=== PATIENT | female | born 1930 | race Caucasian/White ===

== ENCOUNTER 2016-08-08 12:20 | Outpatient (CLI) | payer MEDICARE, OTHER | END 2016-08-08 12:21 | disposition home or self-care (01) | DX: Z12.31 Encounter for screening mammogram for malignant neoplasm of breast (principal) ==

== ENCOUNTER 2016-10-31 11:12 | Outpatient (CLI) | payer MEDICARE, OTHER | END 2016-10-31 11:13 | disposition critical access hospital (66) | DX: M79.604 Pain in right leg (principal); T84.020A Dislocation of internal right hip prosthesis, initial encounter | CPT/HCPCS: A0425; A0427 ==

== ENCOUNTER 2016-10-31 11:31 | Day surgery (SDC) | payer MEDICARE, OTHER ==
[2016-10-31] MEDS ORDERED: PROPOFOL 200 MG/20 ML VIAL IVP STA (13:11)
[2016-10-31] MEDS ORDERED: HYDROmorphone 1 MG/ML SYRINGE IVP STA (13:11)
[2016-10-31] MEDS ORDERED: SODIUM CHLORIDE 0.9% 1,000 ML IV ONE (13:15)
[2016-10-31] MEDS ORDERED: HYDROmorphone 1 MG/ML SYRINGE ONE (13:17)
[2016-10-31] MEDS ORDERED: PROPOFOL 200 MG/20 ML VIAL IVP ONE ×2 (13:17→14:00)
[2016-10-31] MEDS ORDERED: LIDOCAINE-MPF 2% 5 ML VIAL IM ONE (14:00)
[2016-10-31] MEDS ORDERED: fentaNYL 100 MCG/2 ML VIAL IVP ONE (14:00)
[2016-10-31] MEDS ORDERED: SODIUM CHLORIDE 0.9% 700 ML IV ONE (14:21)
[2016-10-31] MEDS ORDERED: ACETAMINOPHEN 1,000 MG/100 ML 100 ML IV ONE (14:51)
[2016-10-31] MEDS ORDERED: KETOROLAC 15 MG/ML VIAL ONE (14:51)
== END 2016-10-31 13:01 | disposition home or self-care (01) ==
PROC: 0SWRXJZ Revision of Synthetic Substitute in Right Hip Joint, Femoral Surface, External Approach (ICD-10-PCS; principal; 2016-10-31 14:00)
DX: T84.020A Dislocation of internal right hip prosthesis, initial encounter (principal); Y83.1 Surgical operation with implant of artificial internal device as the cause of abnormal reaction of the patient, or of later complication, without mention of misadventure at the time of the procedure; I27.2 Other secondary pulmonary hypertension; I48.91 Unspecified atrial fibrillation; E11.9 Type 2 diabetes mellitus without complications; Z96.642 Presence of left artificial hip joint; I10 Essential (primary) hypertension; Z79.01 Long term (current) use of anticoagulants; E78.00 Pure hypercholesterolemia, unspecified; Z79.84 Long term (current) use of oral hypoglycemic drugs; Z88.0 Allergy status to penicillin; Z88.5 Allergy status to narcotic agent
CPT/HCPCS: 27266; 73502; 93005; 93010; 99283; 99285; J0131; J1170

== ENCOUNTER 2016-12-26 12:11 | Outpatient (CLI) | payer MEDICARE, OTHER ==
--- NOTE | 2016-12-26 13:36 | XRAY Report ---
TWO VIEW CHEST: 12/26/2016 CLINICAL INDICATION: Shortness of breath, cough. COMPARISON: 01/28/2010. FINDINGS: Frontal and lateral views of the chest demonstrate an enlarged cardiac silhouette. There i s mild pulmonary vascular congestion present. No effusion or pneumothorax is seen. Changes of previou s vertebroplasty are noted in the thoracic spine. IMPRESSION: CARDIOMEGALY AND MILD PULMONARY VASCULAR CONGESTION. JOB #: [id number] EXT JOB #:[id number]
== END 2016-12-26 12:12 | disposition home or self-care (01) ==
LOC: DI 12:11
PROVIDERS: ATTEND Physician Assistant
DX: R09.89 Other specified symptoms and signs involving the circulatory and respiratory systems (principal); I51.7 Cardiomegaly
CPT/HCPCS: 71020

== ENCOUNTER 2017-08-10 07:36 | Outpatient (CLI) | payer MEDICARE, OTHER | END 2017-08-10 07:37 | disposition critical access hospital (66) | LOC: EMS 07:36 | PROVIDERS: ATTEND Surgery | DX: M25.551 Pain in right hip (principal); Z96.643 Presence of artificial hip joint, bilateral | CPT/HCPCS: A0425; A0429 ==

== ENCOUNTER 2017-08-10 07:38 | Emergency (ER) | payer MEDICARE, OTHER ==
[2017-08-10] MEDS ORDERED: ONDANSETRON 4 MG/2 ML VIAL IVP STA (07:45)
[2017-08-10] MEDS ORDERED: MORPHINE 2 MG/ML CARPUJECT IVP STA ×3 (07:45→09:07)
--- NOTE | 2017-08-10 07:49 | ED Physician Documentation ---
History of Present Illness - Stated complaint Stated Complaint: HIP DISLOCATION - Additonal information Additional information: hx from pt 87 f azam total hips X many years while sitting and putting on her socks this AM she dislocated her R hip no fall etc last ate last night prior dislocation one was reduced in ER and one could not be reduced in ER and needed to go to the OR Review of Systems Constitutional: denies: Fever Cardiac: denies: Chest pain / pressure Respiratory: denies: Dyspnea Musculoskeletal: reports: Joint pain Neurologic: denies: Focal weakness, Numbness Endocrine: reports: Easy bruising / bleeding (xarelto or pradaxa for a fib) PD PAST MEDICAL HISTORY - Past Medical History Cardiovascular: Hypertension, High cholesterol, Atrial fibrillation Neuro: None Endocrine/Autoimmune: Type 2 diabetes GI: Diverticulitis 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 : None HEENT: None Psych: None Musculoskeletal: Osteoarthritis Derm: Eczema - Past Surgical History Past Surgical History: Yes Ortho: Hip replacement, Spine surgery, Other - Present Medications Home Medications: Ambulatory Orders Medication Instructions Recorded Confirmed Carvedilol 12.5 mg PO BIDWM 09/24/13 08/10/17 Furosemide 20 mg PO DAILY 09/24/13 08/10/17 Pantoprazole Sodium [Protonix] 40 mg PO DAILY 09/24/13 08/10/17 Rivaroxaban [Xarelto] 10 mg PO DAILY 09/24/13 08/10/17 metFORMIN [Glucophage] 500 mg PO QDAC 09/24/13 08/10/17 methIMAzole [Methimazole] 10 mg PO DAILY 09/24/13 08/10/17 Albuterol Sulfate [Proair 90 mcg IH Q4HR PRN 07/13/15 08/10/17 Respiclick] Cholecalciferol (Vitamin D3) 500 unit PO DAILY 07/13/15 08/10/17 [Vitamin D3] Diclofenac Sodium [Voltaren] 100 gm TP DAILY 07/13/15 08/10/17 Losartan [Cozaar] 25 mg PO DAILY 07/13/15 08/10/17 Minoxidil [Hair Regrowth Treatment] 0 gm TP BID 07/13/15 08/10/17 Montelukast Sodium 1 gm MC DAILY 07/13/15 08/10/17 ALPRAZolam [Alprazolam] 0.25 mg PO DAILY 08/10/17 08/10/17 Biotin 5 mg PO DAILY 08/10/17 08/10/17 Calcium Citrate/Vitamin D3 1 tab PO DAILY 08/10/17 08/10/17 [Calcium Citrate-Vit D3 Tablet] Cetirizine [ZyrTEC] 10 mg PO DAILY 08/10/17 08/10/17 Niacin [Niaspan] 500 mg PO TIDWM 08/10/17 08/10/17 oxyCODONE [Roxicodone] 5 mg PO Q4-6H PRN #10 tablet 08/10/17 - Allergies Allergies/Adverse Reactions: Allergies Allergy/AdvReac Type Severity Reaction Status Date / Time codeine Allergy hyperactivi Verified 10/31/16 11:39 ty Penicillins Allergy Rash Verified 10/31/16 11:39 - Social History Does the pt smoke?: No Smoking Status: Never smoker Does the pt drink ETOH?: Yes Does the pt have substance abuse?: No - Immunizations Immunizations are current?: No - POLST Patient has POLST: Yes PD ED PE NORMAL - Vitals Vital signs reviewed: Yes - General General: Alert and oriented X 3 - HEENT HEENT: Other (no dentures, good airway) - Cardiac Cardiac: RRR - Respiratory Respiratory: No respiratory distress, Clear bilaterally - Extremities Extremities: Other (R hip TTP medially and shortened, + pulsa, + MSV) - Neuro Neuro: Alert and oriented X 3, No motor deficit, No sensory deficit Results - Vitals Vitals: Vital Signs - 24 hr 08/10/17 08/10/17 08/10/17 07:43 08:35 08:50 Temperature 36.2 C L Heart Rate 79 102 H 84 Respiratory 14 17 18 Rate Blood Pressure 176/103 H 175/90 H 135/87 H O2 Saturation 100 99 97 08/10/17 08/10/17 08/10/17 08:54 09:00 09:24 Temperature Heart Rate 90 92 100 Respiratory 18 18 14 Rate Blood Pressure 135/87 H 160/88 H 155/75 H O2 Saturation 99 100 100 08/10/17 08/10/17 09:30 09:43 Temperature Heart Rate 90 100 Respiratory 16 14 Rate Blood Pressure 155/75 H 132/81 H O2 Saturation 100 100 Oxygen O2 Source Nasal cannula - Rads (name of study) hip Radiology: See rad report (dislocated no fx) hip 2 Radiology: See rad report (reduced no fx) Procedures - Reduction Body part reduced: Right, Hip, prosthetic Fracture or dislocation: Dislocation Anesthesia: Conscious sedation, Morphine, Propofol Hip reduction technique: Allis - flex/pull/rotate (unusccessful attempt by me, successful by Dr Enrst ortho) - Procedural sedation Sedation prep: Informed consent, Time out completed, Last meal (yesterday), PE performed, AHA 3 - severe disease Sedation medications: morphine, propofol (75 fro 1st sedation, 70 for second) Patient status during sedation: Unresponsive, Vitals remained stable, Maintained airway, Recovered uneventfully. No: Respiratory depression, Hypoxia , Needed resp assistance, Complications Sedation recovery: Recovered uneventfully, Other (first reduction unsuccessful so ortho to ER and I sedated her again and ortho was able to reduce) PD MEDICAL DECISION MAKING - ED course ED course: informed consent for both sedation and reduction I sedated pt and attempted to reduce 6 X but was unable pt recovered ortho consulted Dr Ernst to ER I sedated pt again and he was able to reduce the hip Departure - Departure Disposition: 01 Home, Self Care Clinical Impression: Dislocation of hip joint prosthesis Qualifiers: Encounter type: initial encounter Qualified Code(s): T84.029A - Dislocation of unspecified internal joint prosthesis, initial encounter Condition: Good Instructions: ED Hip Replace Dislocation Reduc Follow-Up: [facility] [Provider Group] Prescriptions: oxyCODONE [Roxicodone] 5 mg PO Q4-6H PRN #10 tablet PRN Reason: Severe Pain Comments: The hip is back in joint. It is OK for you to go home. You can walk on that leg but might want to use a walker for the next few days. Use the wedge pillow when laying down or sleeping to prevent crossing the legs and popping the hip out. Do not sit or squat deeply or lean over while sitting. May take tylenol for mild pain and oxycodone for severe pain. Ice will help too. Follow up with the orthopedic clinic Return if worse
[2017-08-10] MEDS ORDERED: PROPOFOL 200 MG/20 ML VIAL IVP STA (07:51)
[2017-08-10] MEDS ORDERED: MORPHINE 2 MG/ML CARPUJECT ONE (08:04)
[2017-08-10] MEDS ORDERED: ONDANSETRON 4 MG/2 ML VIAL ONE (08:04)
--- NOTE | 2017-08-10 08:31 | XRAY Preliminary Report ---
Exam: XR HIP W/PELVIS 2-3V RT IMPRESSION: 1. Right superior femoral prosthesis dislocation. [facility] SITE ID: [id number]
--- NOTE | 2017-08-10 08:31 | XRAY Report ---
EXAM: RIGHT HIP AND PELVIS RADIOGRAPHY EXAM DATE: 08/10/2017 08:19 AM. HISTORY: Dislocated right prosthetic hip while putting on socks. COMPARISONS: 10/31/2016. 07/13/2015. TECHNIQUE: 1 view of the pelvis and 1 view of the hip. FINDINGS: Bones: Normal. No fracture or bone lesion. Joints: Superior dislocation of the right femoral prosthesis is seen in relation to the right acetabu lar prosthesis. Left total hip arthroplasty in anatomic alignment. Soft Tissues: Normal. No soft tissue swelling. IMPRESSION: 1. Right superior femoral prosthesis dislocation. [facility] Referring Provider Line: [phone] SITE ID: [id number]
--- NOTE | 2017-08-10 09:36 | PROVIDER PROGRESS NOTE ---
Subjective - Prog Note Date Prog Note Date: 08/10/17 Prog Note Time: 09:34 - Subjective Pt reports feeling: Worse (Dislocated right hip while trying to put socks on while sitting on the tiolet this AM. No distal weakness/numbness. This will be the 2nd-3rd dislocation over the past 8 months since did the initial THR last summer.) Objective - Vital Signs/Intake & Output Vital Signs: Vital Signs x48h Temp Pulse Resp BP Pulse Ox 08/10/17 09:00 92 18 160/88 H 100 08/10/17 08:54 90 18 135/87 H 99 08/10/17 08:50 84 18 135/87 H 97 08/10/17 08:35 102 H 17 175/90 H 99 08/10/17 07:43 36.2 C L 79 14 176/103 H 100 - Diagnostic Imaging Diagnostic Imaging Comments: XR show posterior-superior hip dislocation S/p THR Assessment/Plan - Problem List (1) Dislocation of hip joint prosthesis Impression: PLANL: Under conscious sedation, gently able to reduce hip dislocation in flexed, adducted, int rotated position. Palpable reduction done. Leg length essentially equal now. Moving toes post reduction. XR post-redcution show THR reduced. THR precautions reenforced with patient and her . Keep hip abductor pillow in place. Limited hip flexion. RTC (ortho) in 1-2 week for XR. Qualifiers: Encounter type: initial encounter Qualified Code(s): T84.029A - Dislocation of unspecified internal joint prosthesis, initial encounter; Z96.649 - Presence of unspecified artificial hip joint
[2017-08-10 11:02] VITALS: BP 145/77
--- NOTE | 2017-08-10 12:04 | XRAY Report ---
DATE OF SERVICE: 08/10/2017 FRONTAL RIGHT HIP: 08/10/2017 CLINICAL INDICATION: Postreduction. FINDINGS: Frontal view of the right hip demonstrates reduction of the superior dislocation identified earlier the same day. No fracture or hardware complication is evident. IMPRESSION: REDUCTION OF DISLOCATION. TD: 08/10/2017 13:03
== END 2017-08-10 10:55 | disposition home or self-care (01) ==
LOC: EDUNIT# → ED 07:38
DX: T84.020A Dislocation of internal right hip prosthesis, initial encounter (principal); I10 Essential (primary) hypertension; E78.00 Pure hypercholesterolemia, unspecified; E11.9 Type 2 diabetes mellitus without complications; Z79.84 Long term (current) use of oral hypoglycemic drugs; Z96.642 Presence of left artificial hip joint
CPT/HCPCS: 27266; 51701; 94770; 99283; 99284

== ENCOUNTER 2017-09-01 15:09 | Outpatient (CLI) | payer MEDICARE, OTHER ==
--- NOTE | 2017-09-01 19:36 | Ultrasound Report ---
RIGHT LEG VENOUS DUPLEX: 09/01/2017 CLINICAL INDICATION: Pain. COMPARISON: 08/16/2015 TECHNIQUE: Real-time sonographic vascular imaging was performed by the gaming cashier through the right lower extremity utilizing both color flow and Doppler spectral analysis. Multiple leasing representative static images were saved for review. FINDINGS: A right lower extremity venous sonogram is performed revealing the common femoral, superficial femoral, profunda femoris, and popliteal veins to be adequately visualized without intraluminal defects. There is normal venous compression, augmentation, phasicity, and spontaneity of venous flow. In the calf, the visualized more cephalad portions of posterior tibial and peroneal veins are grossly compressible, without filling defects. IMPRESSION: NO EVIDENCE OF DEEP VENOUS THROMBOSIS. TD: 09/01/2017 19:34
== END 2017-09-01 15:10 | disposition home or self-care (01) ==
LOC: DI 15:09
PROVIDERS: ATTEND Internal Medicine
DX: M25.561 Pain in right knee (principal)

== ENCOUNTER 2017-09-10 18:54 | Observation (INO) | payer MEDICARE, OTHER ==
[2017-09-10] MEDS ORDERED: ASPIRIN CHEW 81 MG TABLET PO STA (19:41)
[2017-09-10] MEDS ORDERED: METOPROLOL 5 MG/5 ML VIAL IVP STA ×2 (19:41→21:00)
--- NOTE | 2017-09-10 19:44 | ED Physician Documentation ---
History of Present Illness - Stated complaint Stated Complaint: HIGH BLOOD PRESSURE - Chief complaint Chief Complaint: General - History obtained from History obtained from: Patient, Family - History of Present Illness Timing: Today (87-year-old woman with atrial fibrillation and valvular disease was in her usual state of health working lightly around the house about 45 minutes ago when she developed shaking in her chest with increased over baseline breathlessness. There is no chest pain per se and her symptoms are back to her usual now without the shaking and she always has some dyspnea but it is at her baseline. She says she has never had an angiogram. She also has diabetes and hyperthyroidism. She is anticoagulated on Xarelto.) Review of Systems Ten Systems: 10 systems reviewed and negative Constitutional: reports: Reviewed and negative Throat: reports: Reviewed and negative Cardiac: reports: Palpitations. 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 LANGUAGE: None : None HEENT: None Psych: None Musculoskeletal: Osteoarthritis Derm: Eczema - Past Surgical History Past Surgical History: Yes Ortho: Hip replacement, Spine surgery, Other - Present Medications Home Medications: Ambulatory Orders Medication Instructions Recorded Confirmed Carvedilol 12.5 mg PO BIDWM 09/24/13 08/10/17 Furosemide 20 mg PO DAILY 09/24/13 08/10/17 Pantoprazole Sodium [Protonix] 40 mg PO DAILY 09/24/13 08/10/17 Rivaroxaban [Xarelto] 10 mg PO DAILY 09/24/13 08/10/17 metFORMIN [Glucophage] 500 mg PO QDAC 09/24/13 08/10/17 methIMAzole [Methimazole] 10 mg PO DAILY 09/24/13 08/10/17 Albuterol Sulfate [Proair 90 mcg IH Q4HR PRN 07/13/15 08/10/17 Respiclick] Cholecalciferol (Vitamin D3) 500 unit PO DAILY 07/13/15 08/10/17 [Vitamin D3] Diclofenac Sodium [Voltaren] 100 gm TP DAILY 07/13/15 08/10/17 Losartan [Cozaar] 25 mg PO DAILY 07/13/15 08/10/17 Minoxidil [Hair Regrowth Treatment] 0 gm TP BID 07/13/15 08/10/17 Montelukast Sodium 1 gm MC DAILY 07/13/15 08/10/17 ALPRAZolam [Alprazolam] 0.25 mg PO DAILY 08/10/17 08/10/17 Biotin 5 mg PO DAILY 08/10/17 08/10/17 Calcium Citrate/Vitamin D3 1 tab PO DAILY 08/10/17 08/10/17 [Calcium Citrate-Vit D3 Tablet] Cetirizine [ZyrTEC] 10 mg PO DAILY 08/10/17 08/10/17 Niacin [Niaspan] 500 mg PO TIDWM 08/10/17 08/10/17 oxyCODONE [Roxicodone] 5 mg PO Q4-6H PRN #10 tablet 08/10/17 - Allergies Allergies/Adverse Reactions: Allergies Allergy/AdvReac Type Severity Reaction Status Date / Time codeine Allergy hyperactivi Verified 10/31/16 11:39 ty Penicillins Allergy Rash Verified 10/31/16 11:39 - Social History Does the pt smoke?: No Smoking Status: Never smoker Does the pt drink ETOH?: Yes Does the pt have substance abuse?: No - Family History Family history: reports: Non contributory - Immunizations Immunizations are current?: No - POLST Patient has POLST: Yes PD ED PE NORMAL - Vitals Vital signs reviewed: Yes - General General: Alert and oriented X 3, No acute distress - Neck Neck: Supple, no meningeal sign, No bony TTP - Cardiac Cardiac: Other (Rapid and irregularly irregular) - Respiratory Respiratory: No respiratory distress, Clear bilaterally - Abdomen Abdomen: Normal bowel sounds, Soft, Non tender - Back Back: No CVA TTP, No spinal TTP - Derm Derm: Normal color, Warm and dry - Extremities Extremities: No edema, No calf tenderness / cord - Neuro Neuro: Alert and oriented X 3, Normal speech Results - Vitals Vitals: Vital Signs - 24 hr 09/10/17 09/10/17 09/10/17 19:03 19:34 19:38 Temperature 37.0 C Heart Rate 124 H 120 H Respiratory 18 22 Rate Blood Pressure 156/119 H 176/108 H Blood Pressure 176/108 H [Left] O2 Saturation 100 98 09/10/17 20:00 Temperature Heart Rate 114 H Respiratory 16 Rate Blood Pressure 167/88 H Blood Pressure [Left] O2 Saturation 97 Oxygen O2 Source Room air - EKG (time done) 1911 Rate: Rate (enter#) (119) Rhythm: Atrial fibrillation (With occasional PVC) Intervals: LBBB Ischemia: Q waves (Inferior and anterior) Compare to prior EKG: Changed from prior EKG (She had a narrow complex QRS in October of last year.) Computer interpretation: Agree with computer - Labs Labs: Laboratory Tests 09/10/17 09/10/17 09/10/17 19:51 19:51 19:51 WBC 5.7 RBC 4.10 L Hgb 11.4 L Hct 35.2 L MCV 86.0 MCH 27.8 MCHC 32.3 RDW 16.1 H Plt Count 124 L MPV 8.6 Neut # 3.7 Lymph # 1.4 L Wilson # 0.5 Eos # 0.1 Baso # 0.0 Absolute Nucleated RBC 0.00 Nucleated RBC % 0.1 PT 12.4 INR 1.1 Sodium 135 Potassium 3.8 Chloride 99 L Carbon Dioxide 23 Anion Gap 13.0 BUN 27 H Creatinine 1.0 Estimated GFR (MDRD) 53 L Glucose 125 H Calcium 9.4 Total Bilirubin 0.6 AST 29 ALT 21 Alkaline Phosphatase 87 Total Creatine Kinase 66 CK-MB (CK-2) Troponin I Total Protein 8.4 H Albumin 4.2 Globulin 4.2 Albumin/Globulin Ratio 1.0 Lipase 23 TSH 09/10/17 09/10/17 19:51 19:51 WBC RBC Hgb Hct MCV MCH MCHC RDW Plt Count MPV Neut # Lymph # Wilson # Eos # Baso # Absolute Nucleated RBC Nucleated RBC % PT INR Sodium Potassium Chloride Carbon Dioxide Anion Gap BUN Creatinine Estimated GFR (MDRD) Glucose Calcium Total Bilirubin AST ALT Alkaline Phosphatase Total Creatine Kinase CK-MB (CK-2) 1.6 Troponin I < 0.04 Total Protein Albumin Globulin Albumin/Globulin Ratio Lipase TSH 1.24 PD MEDICAL DECISION MAKING - ED course ED course: 87-year-old woman with shaking in her chest which is resolved and increased dyspnea which is now back to her baseline with a left bundle branch block that is new in the last 10 months. No STEMI code was activated since her symptoms are back to her baseline. Her troponin was negative and her she still had no symptoms in the department. I discussed the case by phone with the digital marketing apprentice on-call for hers, Dr. Kilpatrick in [place] who recommended overnight observation for formal rule out and rate control but no transfer at this juncture unless she rules in. She would need to follow-up as an outpatient after release. Call to Dr Calloway for obs at 902pm Departure - Departure Disposition: ED Place in Observation Clinical Impression: LBBB (left bundle branch block) Chest pain Qualifiers: Chest pain type: unspecified Qualified Code(s): R07.9 - Chest pain, unspecified Atrial fibrillation Qualifiers: Atrial fibrillation type: chronic Qualified Code(s): I48.2 - Chronic atrial fibrillation Condition: Stable
[2017-09-10 20:07] LABS: BASOPHILS % (AUTO) 0.7 %; EOSINOPHILS # (AUTO) 0.1 10^3/uL (0.0-0.7); EOSINOPHILS % (AUTO) 1.1 %; HGB - HEMOGLOBIN 11.4 g/dL (12.0-16.0); LYMPHOCYTES # (AUTO) 1.4 10^3/uL (1.5-3.5); LYMPHOCYTES % (AUTO) 24.5 %; MEAN CORPUSCULAR HEMOGLOBIN 27.8 pg (27.0-31.0); MEAN CORPUSCULAR HGB CONC 32.3 g/dL (32.0-36.0); MEAN PLATELET VOLUME 8.6 fL (7.9-10.8); MONOCYTES # (AUTO) 0.5 10^3/uL (0.0-1.0); MONOCYTES % (AUTO) 8.8 %; NEUTROPHILS # (AUTO) 3.7 10^3/uL (1.5-6.6); NEUTROPHILS % (AUTO) 64.9 %; PLT - PLATELET COUNT 124 10^3/uL (130-450); RED CELL DISTRIBUTION WIDTH 16.1 % (12.0-15.0); WHITE BLOOD COUNT 5.7 x10^3/uL (4.8-10.8)
[2017-09-10 20:10] LABS: INR 1.1 (0.8-1.2); PT - PROTHROMBIN TIME 12.4 secs (9.9-12.6)
[2017-09-10 20:14] LABS: ALBUMIN 4.2 g/dL (3.2-5.5); BILIRUBIN,TOTAL 0.6 mg/dL (0.2-1.0); CALCIUM 9.4 mg/dL (8.5-10.3); TOTAL PROTEIN 8.4 g/dL (6.7-8.2)
[2017-09-10 20:19] LABS: TROPONIN I < 0.04 ng/mL (<0.49)
[2017-09-10 20:21] LABS: CREATINE KINASE MB 1.6 ng/mL (0.6-6.3)
--- NOTE | 2017-09-10 20:35 | XRAY Report ---
EXAM: CHEST RADIOGRAPHY EXAM DATE: 09/10/2017 08:01 PM. CLINICAL HISTORY: Heart flutter, dyspnea. COMPARISON: 12/26/2016 chest x-ray. TECHNIQUE: 1 view. FINDINGS: Lungs/Pleura: Distended pulmonary vessels without edema or focal consolidation. No pleural effusion o r pneumothorax. Mediastinum: Within exam limitations, the cardiomediastinal contour is normal. Other: None. IMPRESSION: Pulmonary vascular congestion without edema or focal airspace consolidation. [facility] Referring Provider Line: [phone] SITE ID: [id number]
[2017-09-10] MEDS ORDERED: SODIUM CHLORIDE FLUSH 0.9% 10 ML SYRINGE IVP PRN (21:16)
[2017-09-10] MEDS ORDERED: PROCHLORPERAZINE 10 MG/2 ML VIAL IVP PRN (21:16)
[2017-09-10] MEDS ORDERED: oxyCODONE 5 MG TABLET PO PRN (21:16)
[2017-09-10] MEDS ORDERED: TEMAZEPAM 15 MG CAPSULE PO PRN (21:16)
[2017-09-10] MEDS: CARVEDILOL 12.5 MG TABLET PO SCH (23:02)
[2017-09-10] MEDS: SODIUM CHLORIDE FLUSH 0.9% 10 ML SYRINGE IVP SCH (23:34)
--- NOTE | 2017-09-11 00:12 | HISTORY & PHYSICAL EXAMINATION ---
Chief Complaint - Chief Complaint Chief Complaint: "chest shaking and shortness of breath" History of Present Illness - Admitted From Admitted From:: home - History Obtained From History obtained from: Pt and Dr Wilson - History of Present Illness HPI Comment/Other: Ms. Felisha Waddell is a very pleasant 87-year-old who had an episode earlier today which lasted about 20 minutes which she says she felt her chest was shaking and she also was very short of breath. This episode was self-limiting and again only lasted about 20 minutes. Patient came to [facility] emergency department where she was found to be in atrial fibrillation with rapid ventricular response. Initial workup in the emergency department was negative with the exception of a new left bundle branch block which was not present on EKG done on 01/30/2017. This, along with the pt's story, suggested it would be prudent for her to be brought into the hospital and to be watched while we complete her serial troponins. History - Past Medical History Cardiovascular: reports: Hypertension, High cholesterol, Atrial fibrillation Respiratory: reports: Other Neuro: reports: None Endocrine/Autoimmune: reports: Type 2 diabetes GI: reports: Diverticulitis SOFTWARE ENGINEERING ANALYST: reports: None : reports: None HEENT: reports: Chronic vision loss, Chronic hearing loss Psych: reports: Anxiety Musculoskeletal: reports: Osteoarthritis Derm: reports: Eczema MRSA Hx?: No Other Past Medical History: Pulmonary HTN. 2L at night at times - Past Surgical History Ortho: reports: Hip replacement, Spine surgery, Other - POLST Patient has POLST: Yes Meds/Allgy - Home Medications Home Medications: Ambulatory Orders Medication Instructions Recorded Confirmed Carvedilol 12.5 mg PO BIDWM 09/24/13 09/10/17 Furosemide 20 mg PO DAILY 09/24/13 09/10/17 Pantoprazole Sodium [Protonix] 40 mg PO DAILY 09/24/13 09/10/17 Rivaroxaban [Xarelto] 10 mg PO DAILY 09/24/13 09/10/17 metFORMIN [Glucophage] 500 mg PO QDAC 09/24/13 09/10/17 methIMAzole [Methimazole] 10 mg PO DAILY 09/24/13 09/10/17 Albuterol Sulfate [Proair 90 mcg IH Q4HR PRN 07/13/15 09/10/17 Respiclick] Diclofenac Sodium [Voltaren] 100 gm TP DAILY 07/13/15 09/10/17 Losartan [Cozaar] 25 mg PO DAILY 07/13/15 09/10/17 Minoxidil [Hair Regrowth Treatment] 0 gm TP BID 07/13/15 09/10/17 Montelukast Sodium 1 gm MC DAILY 07/13/15 09/10/17 ALPRAZolam [Alprazolam] 0.25 mg PO DAILY PRN 08/10/17 09/10/17 Niacin [Niaspan] 500 mg PO DAILY 08/10/17 09/10/17 Cholecalciferol (Vitamin D3) 2,500 unit PO DAILY 09/10/17 09/10/17 [Vitamin D] - Allergies Allergies/Adverse Reactions: Allergies Allergy/AdvReac Type Severity Reaction Status Date / Time codeine Allergy hyperactivi Verified 10/31/16 11:39 ty Penicillins Allergy Rash Verified 10/31/16 11:39 Review of Systems - Constitutional Constitutional: reports: Fatigue. denies: Fever, Chills, Weakness, Night sweats - Eyes Eyes: denies: Pain, Irritation, Blurred vision, Dipolpia - Ears, Nose & Throat Ears, Nose & Throat: denies: Ear pain, Hearing loss, Hearing aids, Tinnitus, Vertigo, Nasal pain, Nasal discharge - Cardiovascular Cariovascular: reports: Irregular heart rate, Palpitations. denies: Chest pain , Edema, Syncope - Respiratory Respiratory: reports: SOB with exertion. denies: Cough, Sputum production, Wheezing, Hemoptysis, Orthopnea, SOB at rest - Gastrointestinal Gastrointestinal: denies: Abdominal pain, Abdominal distention, Constipation, Diarrhea, Change in bowel habits, Rectal bleeding - Genitourinary Genitourinary: denies: Dysuria, Frequency, Urgency, Hematuria - Musculoskeletal Musculoskeletal: reports: Stiffness. denies: Muscle pain, Back pain, Muscle aches, Joint swelling - Integumentary Integumentary: denies: Rash, Pruritis, Lesions, Dryness - Neurological Neurological: denies: General weakness, Focal weakness, Headache, Dizziness - Psychiatric Psychiatric: denies: Depression, Anxiety, Hallucinations - Endocrine Endocrine: denies: Polyuria, Polydypsia, Polyphagia - Hematologic/Lymphatic Hematologic/Lymphatic: denies: Anemia, Bruising, Lymphadenopathy - All Other Systems All Other Systems: reports: Reviewed and negative Exam - Vital Signs Reviewed Vital Signs: Yes Vital Signs: Vital Signs x48h Temp Pulse Pulse Resp BP BP BP 09/10/17 23:40 36.9 C 55 L 16 165/85 H 09/10/17 22:42 164/104 H 09/10/17 22:00 36.4 C L 100 16 153/107 H 09/10/17 21:31 91 19 170/108 H Pulse Ox 09/10/17 23:40 97 09/10/17 22:42 09/10/17 22:00 97 09/10/17 21:31 97 - Physical Exam General Appearance: positive: No acute distress, Alert Eyes Bilateral: positive: Normal inspection, PERRL, EOMI, No lid inflammation, Conjunctivae nml, No scleral icterus ENT: positive: ENT inspection nml, Pharynx nml, No signs of dehydration Neck: positive: Nml inspection, Thyroid nml, No JVD, Trachea midline. negative : Thyromegaly Respiratory: positive: Chest non-tender, No respiratory distress, Breath sounds nml. negative: Wheezes, Rales, Rhonchi Cardiovascular: positive: No murmur, No gallop, Irregularly irregular Peripheral Pulses: positive: 1+ Abdomen: positive: Non-tender, No organomegaly, Nml bowel sounds, No distention. negative: Guarding, Rebound Back: positive: Nml inspection. negative: CVA tenderness (R), CVA tenderness (L ) Skin: positive: Color nml, No rash, Warm, Dry. negative: Cyanosis Extremities: positive: Non-tender, Full ROM, Nml appearance Neurologic/Psychiatric: positive: Oriented x3, CN's nml (2-12), Motor nml, Sensation nml, Mood/affect nml Conclusion/Plan - Problem List (1) Type 2 diabetes mellitus Conclusion/Plan: We will place the patient on a diabetic diet. We will restart the patient on her home medications and monitor her glucose. If she runs an elevated blood glucose regularly we will add sliding scale insulin coverage. Qualifiers: Diabetes mellitus complication status: without complication (2) Chronic obstructive pulmonary disease (COPD) Conclusion/Plan: We will continue the patient on her home nebulizer treatments and give her a short course of steroids while she is here in the hospital. (3) Atrial fibrillation Conclusion/Plan: Rate controlled, continue Xarelto. Qualifiers: Atrial fibrillation type: chronic Qualified Code(s): I48.2 - Chronic atrial fibrillation (4) Chest pain Conclusion/Plan: Resolved- just that 20 minute episode mentioned in the history of present illness. Continue the patient on telemetry. Qualifiers: Chest pain type: unspecified Qualified Code(s): R07.9 - Chest pain, unspecified (5) LBBB (left bundle branch block) Conclusion/Plan: New finding on EKG. We will continue to monitor. The patient may need an echocardiogram. - Lab Results Lab results reviewed: Yes Fish Bones: 09/10/17 19:51 09/10/17 19:51 - Diagnostic Imaging Results Diagnostic Imaging Results Comments: EXAM: CHEST RADIOGRAPHY EXAM DATE: 09/10/2017 08:01 PM. CLINICAL HISTORY: Heart flutter, dyspnea. COMPARISON: 12/26/2016 chest x-ray. TECHNIQUE: 1 view. FINDINGS: Lungs/Pleura: Distended pulmonary vessels without edema or focal consolidation. No pleural effusion or pneumothorax. Mediastinum: Within exam limitations, the cardiomediastinal contour is normal. Other: None. IMPRESSION: Pulmonary vascular congestion without edema or focal airspace consolidation. - EKG Results EKG Interpreted Independently: Yes EKG Comparison: Changed from prior EKG EKG Findings: Atrial fibrillation with new left bundle branch block. Core Measures - Anticipated LOS I expect patient to be DC'd or transferred within 96 hours.: Yes - DVT/VTE - Prophylaxis VTE/DVT Device ordered at admit?: Yes
[2017-09-11] MEDS: predniSONE 20 MG TABLET PO SCH ×2 (07:03→08:46)
[2017-09-11] MEDS ORDERED: metFORMIN 850 MG TABLET PO SCH (08:00)
[2017-09-11] MEDS: NIACIN ER 500 MG TABLET PO SCH ×3 (08:34→17:12)
[2017-09-11] MEDS: CARVEDILOL 12.5 MG TABLET PO SCH (08:35)
[2017-09-11] MEDS: SODIUM CHLORIDE FLUSH 0.9% 10 ML SYRINGE IVP SCH ×2 (08:40→17:12)
[2017-09-11] MEDS: POLYETHYLENE GLYCOL 3350 17 GM PACKET PO SCH ×2 (08:46→09:30)
[2017-09-11] MEDS ORDERED: LOSARTAN 50 MG TABLET PO SCH (09:00)
[2017-09-11] MEDS ORDERED: ALPRAZolam 0.25 MG TABLET PO SCH (09:00)
[2017-09-11] MEDS ORDERED: RIVAROXABAN 10 MG TABLET PO SCH (09:00)
[2017-09-11] MEDS ORDERED: DICLOFENAC SODIUM 100 GM TP SCH (09:00)
[2017-09-11] MEDS ORDERED: MONTELUKAST SODIUM MC SCH (09:00)
[2017-09-11] MEDS ORDERED: methIMAzole 5 MG TABLET PO SCH (09:00)
[2017-09-11] MEDS ORDERED: FUROSEMIDE 20 MG TABLET PO SCH (09:00)
[2017-09-11] MEDS ORDERED: CETIRIZINE 10 MG TABLET PO SCH (09:00)
[2017-09-11] MEDS ORDERED: BIOTIN 5 MG PO SCH (09:00)
[2017-09-11] MEDS ORDERED: MINOXIDIL TP SCH (09:00)
[2017-09-11 09:33] LABS: CALCIUM 9.4 mg/dL (8.5-10.3); CREATININE 0.7 mg/dL (0.4-1.0)
[2017-09-11] MEDS: MOXIFLOXACIN HCL EACHEYE SCH ×3 (10:01→17:12)
[2017-09-11] MEDS ORDERED: CARVEDILOL 12.5 MG TABLET PO SCH (17:00)
[2017-09-11] MEDS ORDERED: metFORMIN 500 MG TABLET PO SCH (17:00)
--- NOTE | 2017-09-11 17:49 | Discharge Plan ---
Discharge Plan Disposition: 01 Home, Self Care Condition: Stable Diet: Cardiac Activity Restrictions: Activity as Tolerated Shower Restrictions: No Instruction Topics: High Blood Pressure, Atrial Fibrillation Additional Instructions or Follow Up instructions: Resume all your pre-hospital medications except change the dose of the Carvedilol to 2 tablets of 12.5 mg (=25 mg) twice a day. See your Sheet Metal Layout Worker next week. No Smoking: If you smoke, Please STOP! Call for help. Follow-up with: Og Mckenzie MD [Primary Care Provider] -
[2017-09-11 20:47] VITALS: BP 147/66
--- NOTE | 2017-09-18 03:53 | DISCHARGE SUMMARY ---
Physician: Domi Grigsby MD DATE OF ADMISSION: 09/10/2017 DATE OF DISCHARGE: 09/11/2017 HISTORY OF PRESENT ILLNESS: This is an 87-year-old, white female with a history of hypertension, diabetes, atrial fibrillation, COPD, anxiety, arthritis, eczema, hearing loss, and pulmonary hypertension requiring 2 liters of oxygen nocturnally. The patient presented with complaints of a pounding in her chest which made her very short of breath, lasting about 20 minutes. She occasionally gets brief pounding, but never sustained and this long, and therefore presented to the emergency room where she was found to be in atrial fibrillation with a rapid ventricular rate. She was found to have a new left bundle branch block compared to an EKG done 01/30/2017. She was brought into observation status. HOSPITAL COURSE AND DISCHARGE DIAGNOSES 1. Atrial fibrillation with rapid ventricular rate. Her rate overall decreased since her Coreg dose was increased (see below). With this, she no longer felt her "pounding." The patient did remain in persistent atrial fibrillation. She is on Xarelto for stroke prophylaxis, which was continued. 2. Cardiomyopathy. Because of the new left bundle branch block, she underwent an Echo, which showed a new cardiomyopathy with LV ejection fraction of 35%. It was for this reason that her Carvedilol dose of 12.5 p.o. b.i.d. was increased to 25 p.o. b.i.d., which would also help the heart rate and poorly controlled hypertension. The cardiomyopathy was possibly related to the other findings on the Echo (see below). She ruled out for an PA with normal troponins. Further workup for ischemia could be considered as an outpatient. She should have followup with her PCP and/or Dry Press Operator Helper for this. 3. Mitral valve prolapse. The patient was found to have significant mitral valve prolapse on echo. 4. Mitral regurgitation. The patient was known to have significant mitral regurgitation related to the mitral valve prolapse. Significant MR associated with such a low ejection fraction would suggest a poor prognosis. It is unclear if she is even an open heart surgery candidate because of her COPD and pulmonary hypertension requiring oxygen. This needs attention at followup by her PCP and her Dry Press Operator Helper. 5. PVCs. It was initially thought that her "pounding" was from PVCs, but she later reported that it was the feelings of racing of Afib that she called her "pounding." 6. Left bundle branch block. This was a new finding on this admission EKG and outpatient workup is advised as above. 7. Hypertension. The patient had poorly controlled hypertension during this admission, running blood pressures of 172/92 and therefore the Coreg dose was adjusted as described above. 8. Diabetes. The patient was on her oral agent and a diet for diabetic control while here. 9. Chronic obstructive pulmonary disease. The patient was on nebulizers and was maintained on supplemental oxygen while here. ALLERGIES 1. CODEINE. 2. PENICILLINS. MEDICATIONS AT THE TIME OF DISCHARGE 1. ProAir inhaler p.r.n. 2. Alprazolam 0.25 mg p.o. daily p.r.n. 3. Calcium carbonate 1 tablet b.i.d. 4. Carvedilol increased dose to 25 mg b.i.d. 5. Zyrtec 10 mg daily. 6. Vitamin D3 2000 units daily. 7. Voltaren gel topically daily. 8. Lasix 20 mg p.o. daily. 9. Ipratropium bromide 2 sprays nasally q.8h. p.r.n. 10. Losartan 25 mg p.o. daily. 11. Metformin 500 mg p.o. b.i.d. 12. Methimazole 10 mg p.o. Thursday, Thursday, Thursday. 13. Minoxidil topical treatment for hair growth b.i.d. 14. Singulair 10 mg p.o. every evening. 15. Moxifloxacin eyedrops. 16. Niaspan 500 mg p.o. daily. 17. Protonix 40 mg p.o. daily. 18. Xarelto 15 mg p.o. daily. CONDITION AT DISCHARGE: Stable. PHYSICAL EXAMINATION AT DISCHARGE GENERAL: Thin, elderly, white female in no distress. VITAL SIGNS: Blood pressure 147/66, pulse 76 in atrial fibrillation, afebrile, room air saturation 92%. HEENT: Unremarkable except for thin hair growth. Moist oral mucosa. NECK: Without JVD in a vertical position. No carotid bruits. CHEST: Clear. HEART: Sounds have a normal S1, S2 and a 2/6 systolic murmur heard at the lower left sternal border and apex. There is no RV heave or gallop. ABDOMEN: Soft. No organomegaly. EXTREMITIES: No clubbing, cyanosis or edema. NEUROLOGIC: Intact. LABORATORIES AND IMAGING: Reviewed and summarized above. CODE STATUS: FULL CODE. Time required for completion of this entire discharge was 30 minutes. TD: 09/18/2017 03:52 MTDD
== END 2017-09-11 19:00 | disposition home or self-care (01) ==
LOC: ED 18:54 → OBS 21:16
PROVIDERS: ADMIT Hospitalist; ATTEND Internal Medicine
DX: I48.2 Chronic atrial fibrillation (principal); I11.9 Hypertensive heart disease without heart failure; I34.1 Nonrheumatic mitral (valve) prolapse; I44.7 Left bundle-branch block, unspecified; E11.9 Type 2 diabetes mellitus without complications; J44.9 Chronic obstructive pulmonary disease, unspecified; R07.9 Chest pain, unspecified; I27.20 Pulmonary hypertension, unspecified; E78.00 Pure hypercholesterolemia, unspecified; F41.9 Anxiety disorder, unspecified; H91.90 Unspecified hearing loss, unspecified ear; H54.7 Unspecified visual loss; M19.90 Unspecified osteoarthritis, unspecified site; L30.9 Dermatitis, unspecified; Z79.84 Long term (current) use of oral hypoglycemic drugs; Z79.51 Long term (current) use of inhaled steroids; Z79.899 Other long term (current) drug therapy; Z96.649 Presence of unspecified artificial hip joint; Z99.81 Dependence on supplemental oxygen
CPT/HCPCS: 36415; 71045; 80048; 80053; 82550; 82553; 83690; 83735; 84439; 84443; 84484; 85025; 85610; 93005; 93306; 96374; 96376; 99284; 99285; A9270; G0378; J7512

== ENCOUNTER 2018-03-13 13:37 | Outpatient (CLI) | payer MEDICARE, OTHER | END 2018-03-13 13:38 | disposition home or self-care (01) | LOC: DI 13:37 | PROVIDERS: ATTEND Internal Medicine Cardiovascular Disease | DX: I50.23 Acute on chronic systolic (congestive) heart failure (principal); I51.7 Cardiomegaly; I07.1 Rheumatic tricuspid insufficiency | CPT/HCPCS: 93306 ==

== ENCOUNTER 2018-05-01 02:13 | Emergency (ER) | payer MEDICARE, OTHER ==
--- NOTE | 2018-05-01 03:05 | ED Physician Documentation ---
PD HPI OPHTHO - Stated complaint Stated Complaint: R EYE POST SURGICAL BLEEDING - Chief complaint Chief Complaint: Heent - Additional information Additional information: 88-year-old female who is status post bilateral eye lid lifts on April 28, 2018 presents the emergency department with bleeding from her right eye. The patient resumed her Xarelto on April 29 but did not taken on April 30. The patient has had intermittent episodes of bleeding and this morning presents with an ongoing bleeding from her right eye. The patient reports eyelid swelling and bleeding. The patient denies any vision loss or ocular pain. The patient does report blurry vision. Symptoms are described as severe. No other associated symptoms. No relieving factors. No triggering factors Review of Systems Constitutional: denies: Fever Eyes: reports: Discharge, Irritation. denies: Decreased vision Ears: denies: Ear pain Cardiac: denies: Chest pain / pressure Respiratory: denies: Dyspnea Neurologic: denies: Syncope Immunocompromised: denies: Chemotherapy PD PAST MEDICAL HISTORY - Past Medical History Past Medical History: Yes Cardiovascular: Hypertension, High cholesterol, Atrial fibrillation Respiratory: Other Neuro: None Endocrine/Autoimmune: Type 2 diabetes GI: Diverticulitis SUPERVISOR HAND WORKERS: None : None HEENT: Chronic vision loss, Chronic hearing loss Psych: Anxiety Musculoskeletal: Osteoarthritis Derm: Eczema - Past Surgical History Past Surgical History: Yes Ortho: Hip replacement, Spine surgery, Other - Present Medications Home Medications: Ambulatory Orders Medication Instructions Recorded Confirmed Furosemide 20 mg PO DAILY 09/24/13 09/10/17 Pantoprazole Sodium [Protonix] 40 mg PO DAILY 09/24/13 09/10/17 metFORMIN [Glucophage] 500 mg PO BIDWM 09/24/13 09/11/17 methIMAzole [Methimazole] 10 mg PO MOWEFR 09/24/13 09/11/17 Albuterol Sulfate [Proair 90 mcg IH Q4HR PRN 07/13/15 09/10/17 Respiclick] Diclofenac Sodium [Voltaren] 2 - 4 gm TP DAILY 07/13/15 09/11/17 Minoxidil [Hair Regrowth Treatment] 0 gm TP BID 07/13/15 09/10/17 ALPRAZolam [Alprazolam] 0.25 mg PO DAILY PRN 08/10/17 09/10/17 Niacin [Niaspan] 500 mg PO DAILY 08/10/17 09/10/17 Cholecalciferol (Vitamin D3) 2,000 unit PO DAILY 09/10/17 09/11/17 [Vitamin D3] Calcium Carbonate/Vitamin D3 1 each PO BID 09/11/17 09/11/17 [Oyster Shell Calcium-Vit D Tab] Carvedilol [Coreg] 25 mg PO BIDWM #0 09/11/17 09/11/17 Cetirizine [ZyrTEC] 10 mg PO DAILY 09/11/17 09/11/17 Ipratropium [place] 2 sprays RODNEY Q8H PRN 09/11/17 09/11/17 Losartan Potassium 25 mg PO DAILY 09/11/17 09/11/17 Montelukast [Singulair] 10 mg PO QPM 09/11/17 09/11/17 Moxifloxacin HCl [Moxifloxacin] 1 drops EACHEYE QID 09/11/17 09/11/17 Rivaroxaban [Xarelto] 1,500 mg PO QDDINNER 09/11/17 09/11/17 - Allergies Allergies/Adverse Reactions: Allergies Allergy/AdvReac Type Severity Reaction Status Date / Time codeine Allergy hyperactivi Verified 05/01/18 02:27 ty Penicillins Allergy Rash Verified 05/01/18 02:27 - Social History Does the pt smoke?: No Smoking Status: Never smoker Does the pt drink ETOH?: Yes Does the pt have substance abuse?: No - Immunizations Immunizations are current?: No - POLST Patient has POLST: Yes PD ED PE NORMAL - General General: Alert and oriented X 3, No acute distress - HEENT HEENT: Atraumatic - Cardiac Cardiac: Strong equal pulses - Respiratory Respiratory: No respiratory distress - Derm Derm: Normal color - Extremities Extremities: No deformity - Neuro Neuro: Alert and oriented X 3, Normal speech - Psych Psych: Normal affect PD ED PE EXPANDED - HEENT HEENT Visual: 1 - swelling (The patient has significant postoperative contusion and bruising to the right eyelid which extends further out than the left. The patient has a brisk bleed and due to the swelling and matted tissue is difficult to identify the exact location of the bleeding. There appears to be a significant sub- conjunctival hematoma and oozing from the sub-conjunctiva. The pupil appears equal and reactive. Presently there is no proptosis. The patient is denying ocular pain or significant change in her vision. The patient does report blurry vision. A proper visual acuity exam is limited secondary to the acuity of the bleeding and briskness of the bleeding.) Results - Vitals Vitals: Vital Signs - 24 hr 05/01/18 02:23 Temperature 36.7 C Heart Rate 111 H Respiratory 16 Rate Blood Pressure 153/90 H O2 Saturation 99 Oxygen O2 Source Room air PD MEDICAL DECISION MAKING - ED course ED course: The patient has an acute post surgical bleeding from her right eyelid surgery and her sub-conjunctiva. The patient is on anticoagulants. Our facility does not have ophthalmology present. The patient's bleeding was managed with Surgicel that was placed over top of the eyelid. And a pressure dressing was applied to help control the bleeding. I discussed the patient's case with her supervisor paste mixing Dr. MENEZES from from [place]. He agrees that the patient needs reevaluation and recommends transfer to [place] so that he can evaluate the patient. The case was discussed with the emergency room physician at [facility] who accepts the patient for transfer. The eye is difficult to fully assess due to the brisk nature of the bleed. A comprehensive exam is limited since the main priority was controlling the bleeding. The patient has no obvious proptosis or ocular pain so it is unlikely that the patient has retrobulbar bleeding. The patient will require urgent transfer for definitive evaluation by the supervisor paste mixing. The findings and plan were discussed with the patient and family who understand and agree to the plan. Departure - Departure Disposition: 02 Transfer Acute Care Hosp Clinical Impression: Post-operative hemorrhage Qualifiers: Surgical complication system/body Area: eye Procedure type: ophthalmic L aterality: right Qualified Code(s): H59.311 - Postprocedural hemorrhage of right eye and adnexa following an ophthalmic procedure Condition: Fair
[2018-05-01 03:10] VITALS: BP 152/77
== END 2018-05-01 03:48 | disposition short-term general hospital (02) ==
LOC: ED 02:13
DX: H59.311 Postprocedural hemorrhage of right eye and adnexa following an ophthalmic procedure (principal); I10 Essential (primary) hypertension; I48.91 Unspecified atrial fibrillation; E11.9 Type 2 diabetes mellitus without complications; Z79.01 Long term (current) use of anticoagulants; Z79.84 Long term (current) use of oral hypoglycemic drugs
CPT/HCPCS: 99284

== ENCOUNTER 2018-05-01 03:52 | Outpatient (CLI) | payer MEDICARE, OTHER | END 2018-05-01 03:53 | disposition short-term general hospital (02) | LOC: EMS 03:52 | PROVIDERS: ATTEND Surgery | DX: R58 Hemorrhage, not elsewhere classified (principal); Z79.01 Long term (current) use of anticoagulants; Z98.890 Other specified postprocedural states | CPT/HCPCS: A0425; A0429 ==

== ENCOUNTER 2018-09-27 15:16 | Outpatient (CLI) | payer MEDICARE, OTHER ==
--- NOTE | 2018-09-28 08:39 | XRAY Report ---
Reason: ACUTE ON CHRONIC NECK PAIN Procedure Date: 09/27/2018 Accession Number: [id number] / [id number] Procedure: XR - Cervical Spine 2 View CPT Code: FULL RESULT: EXAM: CERVICAL SPINE RADIOGRAPHY EXAM DATE: 09/27/2018 03:43 PM. CLINICAL HISTORY: Acute on chronic neck pain. COMPARISONS: None. TECHNIQUE: 3 views. FINDINGS: Alignment: There is loss of the cervical lordosis. There is 1 mm of degenerative stairstep anterolisthesis of C3 relative to C4 and C4 relative to C5. Bones: The cervical vertebral bodies and posterior elements are well visualized from the skull base through C7-T1. No fractures or bone lesions. Disks: Degenerative disk space narrowing with mild anterior osteophyte noted at C5-C6 and C6-C7. Other disk spaces are preserved. Facets: No significant degenerative changes of the facets. Soft Tissues: Normal. No prevertebral soft tissue swelling. The visualized lung apices are clear. IMPRESSION: Degenerative changes of the lower cervical spine as described. No fracture appreciated. RADIA
== END 2018-09-27 15:17 | disposition home or self-care (01) ==
LOC: DI 15:16
PROVIDERS: ATTEND Family Medicine
DX: M47.812 Spondylosis without myelopathy or radiculopathy, cervical region (principal); M48.02 Spinal stenosis, cervical region; M25.78 Osteophyte, vertebrae
CPT/HCPCS: 72040

== ENCOUNTER 2018-10-29 13:47 | Outpatient (CLI) | payer MEDICARE, OTHER ==
--- NOTE | 2018-10-29 15:08 | CT Report ---
Reason: NASAL POLYP Procedure Date: 10/29/2018 Accession Number: [id number] / [id number] Procedure: CT - Sinuses CPT Code: FULL RESULT: EXAM: CT SINUS EXAM DATE: 10/29/2018 02:11 PM. HISTORY: Nasal polyp. COMPARISONS: None. TECHNIQUE: Routine multi-axial CT imaging performed through the sinuses. Iodinated IV contrast: None. Reconstructions: Multiplanar reformats. In accordance with CT protocol optimization, one or more of the following dose reduction techniques were utilized for this exam: automated exposure control, adjustment of mA and/or KV based on patient size, or use of iterative reconstructive technique. FINDINGS: Frontal: Complete bilateral opacification. Ethmoid: Extensive generalized bilateral mucosal thickening. Maxillary: There has been previous bilateral medial antrostomies. There is extensive bilateral maxillary mucosal thickening. There is bilateral soft tissue infundibular outflow obstruction. Sphenoid: Extensive bilateral sphenoid mucosal thickening, more severe on the left. Drainage Pathways: The frontal recesses are obliterated. As stated above, there is bilateral soft tissue maxillary infundibular outflow obstruction. Nasal Cavity: No significant septal deviation. There is extensive abnormal soft tissue within the superior portions of the nasal cavity greater on the left side. Osseous Structures: Generalized osteopenia, but no evidence of bony destruction. Orbits: Unremarkable. Other: None. IMPRESSION: 1. Extensive pansinusitis as discussed above. 2. No evidence of acute sinusitis. 3. Large previous medial antrostomies. 4. Abnormal soft tissue mass in the superior nasal cavity, greater on left side. Polyposis is not excluded. RADIA
== END 2018-10-29 13:48 | disposition home or self-care (01) ==
LOC: DI 13:47
PROVIDERS: ATTEND Otolaryngology
DX: J32.4 Chronic pansinusitis (principal); J34.9 Unspecified disorder of nose and nasal sinuses
CPT/HCPCS: 70486

== ENCOUNTER 2018-11-23 07:15 | Emergency (ER) | payer MEDICARE, OTHER ==
--- NOTE | 2018-11-23 07:34 | ED Physician Documentation ---
PD HPI LOWER EXT INJURY - Stated complaint Stated Complaint: HIP PX - Chief complaint Chief Complaint: Ext Problem - History obtained from History obtained from: Patient - History of Present Illness PD HPI LOW EXT INJURY LOCATION: Left, Hip, Buttock Type of injury: No: Fall, Twist Where injury occurred: Home Timing - onset: How many weeks ago (1-2) Timing - duration: Weeks (1-2) Timing - details: Gradual onset, Still present, Waxing and waning Improved by: Rest Worsened by: Moving, Other (walking) Associated symptoms: No: Weakness, Numbness Contributing factors: Prosthetic joint. No: Anticoagulated Similar symptoms before: Has not had sx before Review of Systems Constitutional: denies: Fever, Chills, Myalgias Nose: denies: Rhinorrhea / runny nose, Congestion Throat: denies: Sore throat Respiratory: denies: Cough GI: denies: Abdominal Pain, Nausea, Vomiting, Diarrhea Skin: denies: Rash, Lesions Musculoskeletal: denies: Back pain Neurologic: denies: Focal weakness, Numbness PD PAST MEDICAL HISTORY - Past Medical History Cardiovascular: Hypertension, High cholesterol, Atrial fibrillation Respiratory: Other Neuro: None Endocrine/Autoimmune: Type 2 diabetes GI: Diverticulitis 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 : None HEENT: Chronic vision loss, Chronic hearing loss Psych: Anxiety Musculoskeletal: Osteoarthritis Derm: Eczema - Past Surgical History Past Surgical History: Yes Ortho: Hip replacement, Spine surgery, Other - Present Medications Home Medications: Ambulatory Orders Medication Instructions Recorded Confirmed Furosemide 20 mg PO DAILY 09/24/13 11/23/18 Pantoprazole Sodium [Protonix] 40 mg PO DAILY 09/24/13 11/23/18 metFORMIN [Glucophage] 500 mg PO BIDWM 09/24/13 11/23/18 methIMAzole [Methimazole] 10 mg PO MOWEFR 09/24/13 11/23/18 Albuterol Sulfate [Proair 90 mcg IH Q4HR PRN 07/13/15 11/23/18 Respiclick] Diclofenac Sodium [Voltaren] 2 - 4 gm TP DAILY 07/13/15 11/23/18 Minoxidil [Hair Regrowth Treatment] 0 gm TP BID 07/13/15 11/23/18 ALPRAZolam [Alprazolam] 0.25 mg PO DAILY PRN 08/10/17 11/23/18 Niacin [Niaspan] 500 mg PO DAILY 08/10/17 11/23/18 Cholecalciferol (Vitamin D3) 2,000 unit PO DAILY 09/10/17 11/23/18 [Vitamin D3] Calcium Carbonate/Vitamin D3 1 each PO BID 09/11/17 11/23/18 [Oyster Shell Calcium-Vit D Tab] Carvedilol [Coreg] 25 mg PO BIDWM #0 09/11/17 11/23/18 Cetirizine [ZyrTEC] 10 mg PO DAILY 09/11/17 11/23/18 Ipratropium [place] 2 sprays RODNEY Q8H PRN 09/11/17 11/23/18 Montelukast [Singulair] 10 mg PO QPM 09/11/17 09/11/17 Moxifloxacin HCl [Moxifloxacin] 1 drops EACHEYE QID 09/11/17 11/23/18 Rivaroxaban [Xarelto] 1,500 mg PO QDDINNER 09/11/17 11/23/18 Dexamethasone [Decadron] 4 mg PO DAILY #5 tablet 11/23/18 Tramadol HCl 50 mg PO Q6H PRN #15 tablet 11/23/18 diltiaZEM [Cardizem] 11/23/18 - Allergies Allergies/Adverse Reactions: Allergies Allergy/AdvReac Type Severity Reaction Status Date / Time SEGUNDO Inhibitors Allergy Unknown Verified 11/23/18 07:29 amoxicillin Allergy Unknown Verified 11/23/18 07:29 codeine Allergy hyperactivi Verified 11/23/18 07:29 ty Penicillins Allergy Rash Verified 11/23/18 07:29 - Social History Does the pt smoke?: No Smoking Status: Never smoker Does the pt drink ETOH?: Yes Does the pt have substance abuse?: No - Immunizations Immunizations are current?: No - POLST Patient has POLST: Yes PD ED PE NORMAL - Vitals Vital signs reviewed: Yes - General General: Alert and oriented X 3, Well developed/nourished - Abdomen Abdomen: Soft, Non tender - Back Back: No CVA TTP, No spinal TTP - Derm Derm: Normal color, Warm and dry, No rash - Extremities Extremities: No tenderness to palpate, No edema, No calf tenderness / cord, Other (left hip is tender at posterior SI joint area, some at lateral trochanter area. And some in hip joint wiht ROm of the hip. ) - Neuro Neuro: Alert and oriented X 3, No motor deficit, No sensory deficit Results - Vitals Vitals: Vital Signs - 24 hr 11/23/18 11/23/18 07:24 09:20 Temperature 36.7 C 36.6 C Heart Rate 87 101 H Respiratory 22 16 Rate Blood Pressure 136/71 H 129/58 L O2 Saturation 98 98 Oxygen O2 Source Room air - Rads (name of study) left hip Radiology: Prelim report reviewed (hip replacement in place. No fractures no dislocation. ), EMP read contemporaneously, See rad report PD MEDICAL DECISION MAKING - ED course Complexity details: reviewed results, considered differential (likely some arthritis in SI joint and hip.), d/w patient Departure - Departure Disposition: 01 Home, Self Care Clinical Impression: Left hip pain Condition: Stable Record reviewed to determine appropriate education?: Yes Follow-Up: Og Mckenzie MD [Primary Care Provider] - Prescriptions: Dexamethasone [Decadron] 4 mg PO DAILY #5 tablet Tramadol HCl 50 mg PO Q6H PRN #15 tablet PRN Reason: Pain Comments: Use Tylenol 3-4 times a day as needed for pain. If its worst you can add tramadol which is a mild pain medicine for worse pain. Use Decadron steroid for inflammation daily for the next 5 days. Follow-up with your primary care in the next week or so, call for an appointment. Discharge Date/Time: 11/23/18 09:39
[2018-11-23] MEDS ORDERED: TRIAMCINOLONE 40 MG/ML VIAL IM STA (07:53)
[2018-11-23] MEDS ORDERED: BUPIVACAINE 0.5%-EPI 1:200000 PF 10 ML VIAL SUBQ STA (07:53)
[2018-11-23] MEDS ORDERED: DEXAMETHASONE 10 MG/ML VIAL PO STA (07:55)
[2018-11-23] MEDS ORDERED: CHERRY SYRUP 10 ML UDC PO ONE (07:55)
--- NOTE | 2018-11-23 08:37 | XRAY Report ---
Reason: pain with walking for a week; prior replacement Procedure Date: 11/23/2018 Accession Number: [id number] / [id number] Procedure: XR - Hip w/Pelvis 2-3V LT CPT Code: FULL RESULT: EXAM: LEFT HIP RADIOGRAPHY EXAM DATE: 11/23/2018 08:26 AM. CLINICAL HISTORY: Pain with walking for a week; prior replacement. COMPARISON: HIP 2 VIEW LT 04/30/2016 8:40 AM. TECHNIQUE: 2 views. FINDINGS: Bones: Normal. No fractures or bone lesion. Joints: Prior bilateral total hip arthroplasty. No abnormal lucency adjacent to either prosthesis. No dislocation. Soft Tissues: Atherosclerotic arterial calcifications. IMPRESSION: Prior bilateral total hip arthroplasty. No complication evident. RADIA
[2018-11-23 09:21] VITALS: BP 129/58
== END 2018-11-23 09:39 | disposition home or self-care (01) ==
LOC: ED 07:15
DX: M25.552 Pain in left hip (principal); I10 Essential (primary) hypertension; E11.9 Type 2 diabetes mellitus without complications; Z79.84 Long term (current) use of oral hypoglycemic drugs; Z96.643 Presence of artificial hip joint, bilateral
CPT/HCPCS: 96372; 99283

== ENCOUNTER 2018-12-10 09:00 | Outpatient (CLI) | payer MEDICARE, OTHER | END 2018-12-10 09:01 | disposition critical access hospital (66) | LOC: EMS 09:00 | PROVIDERS: ATTEND Surgery | DX: R53.1 Weakness (principal); R29.6 Repeated falls | CPT/HCPCS: A0425; A0429 ==

== ENCOUNTER 2018-12-10 09:43 | Emergency (ER) | payer MEDICARE, OTHER ==
--- NOTE | 2018-12-10 09:40 | ED Physician Documentation ---
PD HPI Fall - Stated complaint Stated Complaint: GLF - Chief complaint Chief Complaint: Trauma Ext - History obtained from History obtained from: Patient, EMS - History of Present Illness Mechanism of injury: Lost balance (patient uses a walker at home and has fallen more often, twice this week) Fall distance: Standing position Where injury occurred: Home Timing - onset: Today Injury(ies) location: Left (wrist pain) Pain level max: 4 Pain level now: 4 Quality of pain: Pain, Aching Associated symptoms: No: LOC, AMS, Neck pain, Weakness, Paresthesias, Dyspnea, Nausea / vomiting, Abdominal distension Symptoms improve with: Rest Worsens with: Movement, Palpation Contributing factors: Anticoagulated Review of Systems Ten Systems: 10 systems reviewed and negative Constitutional: denies: Fever Eyes: denies: Loss of vision, Decreased vision, Photophobia Cardiac: denies: Chest pain / pressure, Palpitations Respiratory: denies: Cough GI: denies: Abdominal Pain, Nausea, Vomiting Skin: reports: Reviewed and negative. denies: Rash, Abrasion (s), Laceration (s) Musculoskeletal: reports: Extremity pain, Joint pain (left wrist). denies: Neck pain, Back pain PD PAST MEDICAL HISTORY - Past Medical History Past Medical History: Yes Endocrine/Autoimmune: Type 2 diabetes - Present Medications Home Medications: Ambulatory Orders Medication Instructions Recorded Confirmed Furosemide 20 mg PO DAILY 09/24/13 11/23/18 Pantoprazole Sodium [Protonix] 40 mg PO DAILY 09/24/13 11/23/18 metFORMIN [Glucophage] 500 mg PO BIDWM 09/24/13 11/23/18 methIMAzole [Methimazole] 10 mg PO MOWEFR 09/24/13 11/23/18 Albuterol Sulfate [Proair 90 mcg IH Q4HR PRN 07/13/15 11/23/18 Respiclick] Diclofenac Sodium [Voltaren] 2 - 4 gm TP DAILY 07/13/15 11/23/18 Minoxidil [Hair Regrowth Treatment] 0 gm TP BID 07/13/15 11/23/18 ALPRAZolam [Alprazolam] 0.25 mg PO DAILY PRN 08/10/17 11/23/18 Niacin [Niaspan] 500 mg PO DAILY 08/10/17 11/23/18 Cholecalciferol (Vitamin D3) 2,000 unit PO DAILY 09/10/17 11/23/18 [Vitamin D3] Calcium Carbonate/Vitamin D3 1 each PO BID 09/11/17 11/23/18 [Oyster Shell Calcium-Vit D Tab] Carvedilol [Coreg] 25 mg PO BIDWM #0 09/11/17 11/23/18 Cetirizine [ZyrTEC] 10 mg PO DAILY 09/11/17 11/23/18 Ipratropium [place] 2 sprays RODNEY Q8H PRN 09/11/17 11/23/18 Montelukast [Singulair] 10 mg PO QPM 09/11/17 09/11/17 Moxifloxacin HCl [Moxifloxacin] 1 drops EACHEYE QID 09/11/17 11/23/18 Rivaroxaban [Xarelto] 1,500 mg PO QDDINNER 09/11/17 11/23/18 Tramadol HCl 50 mg PO Q6H PRN #15 tablet 11/23/18 dexAMETHasone [Decadron] 4 mg PO DAILY #5 tablet 11/23/18 diltiaZEM [Cardizem] 11/23/18 Cephalexin [Keflex] 500 mg PO Q6H #28 capsule 12/10/18 - Allergies Allergies/Adverse Reactions: Allergies Allergy/AdvReac Type Severity Reaction Status Date / Time SEGUNDO Inhibitors Allergy Unknown Verified 12/10/18 09:56 amoxicillin Allergy Unknown Verified 12/10/18 09:56 codeine Allergy hyperactivi Verified 12/10/18 09:56 ty Penicillins Allergy Rash Verified 12/10/18 09:56 PD ED PE NORMAL - Vitals Vital signs reviewed: Yes - General General: No acute distress PD ED PE EXPANDED - General General: Alert, No acute distress, Other (frail) - Eyes Eyes: Right eye, Exudate - Derm Derm: Other (chest wall ecchymosis and mild petechiae present in center of chest) - Neuro Neuro: Confused, Normal motor, Normal Sensation, Normal Speech, PERRL. No: Abnormal sensation, Aphasia, Dysarthria Results - Vitals Vitals: Vital Signs - 24 hr 12/10/18 12/10/18 09:48 13:40 Temperature 36.8 C 37.1 C Heart Rate 97 79 Respiratory 18 12 Rate Blood Pressure 124/109 H 121/49 L O2 Saturation 97 95 Oxygen O2 Source Room air - EKG (time done) No standard instances Rate: Rate (enter#) (100), Tachy Rhythm: Atrial fibrillation [place]: RAD QRS: Normal Ischemia: Normal ST segments Compare to prior EKG: Unchanged from prior EKG Computer interpretation: Agree with computer - Labs Labs: Laboratory Tests 12/10/18 12/10/18 12/10/18 10:25 10:45 10:45 WBC 14.0 H RBC 3.92 L Hgb 10.1 L Hct 31.4 L MCV 80.1 L MCH 25.7 L MCHC 32.1 RDW 21.4 H Plt Count 71 L MPV 8.3 Neut # (Auto) Not Reportable Lymph # (Auto) Not Reportable [place] # (Auto) Not Reportable Eos # (Auto) Not Reportable Baso # (Auto) Not Reportable Absolute Nucleated RBC Not Reportable Total Counted 100 Band Neuts % (Manual) 13 H Reactive Lymphs % (Man) 3 Abnorm Lymph % (Manual) 0 Nucleated RBC % Not Reportable Neutrophils # (Manual) 12.2 H Lymphocytes # (Manual) 1.1 L Monocytes # (Manual) 0.4 Eosinophils # (Manual) 0.1 Basophils # (Manual) 0.1 Differential Comment MANUAL DIFFERENTIAL Manual Slide Review Indicated WBC Morphology TOXIC VACUOLATION Platelet Estimate DECREASED (<130,000) Platelet Morphology 1+ LARGE PLATELETS RBC Morph Micro Appear OVALOCYTES Sodium 133 L Potassium 3.7 Chloride 97 L Carbon Dioxide 21 Anion Gap 15.0 H BUN 36 H Creatinine 1.6 H Estimated GFR (MDRD) 31 L Glucose 138 H Calcium 8.7 Troponin I Urine Color YELLOW Urine Clarity CLOUDY Urine pH 7.0 Ur Specific [place] 1.010 Urine Protein 100 H Urine Glucose (UA) NEGATIVE Urine Ketones NEGATIVE Urine Occult Blood LARGE H Urine Nitrite NEGATIVE Urine Bilirubin NEGATIVE Urine Urobilinogen >=8.0 H Ur Leukocyte Esterase TRACE H Urine RBC 11-25 H Urine WBC >25 H Ur Squamous Epith Cells RARE Squamous Urine Bacteria Moderate H Ur Microscopic Review INDICATED Urine Culture Comments INDICATED 12/10/18 10:45 WBC RBC Hgb Hct MCV MCH MCHC RDW Plt Count MPV Neut # (Auto) Lymph # (Auto) [place]clean # (Auto) Eos # (Auto) Baso # (Auto) Absolute Nucleated RBC Total Counted Band Neuts % (Manual) Reactive Lymphs % (Man) Abnorm Lymph % (Manual) Nucleated RBC % Neutrophils # (Manual) Lymphocytes # (Manual) Monocytes # (Manual) Eosinophils # (Manual) Basophils # (Manual) Differential Comment Manual Slide Review WBC Morphology Platelet Estimate Platelet Morphology RBC Morph Micro Appear Sodium Potassium Chloride Carbon Dioxide Anion Gap BUN Creatinine Estimated GFR (MDRD) Glucose Calcium Troponin I 0.05 Urine Color Urine Clarity Urine pH Ur Specific [place] Urine Protein Urine Glucose (UA) Urine Ketones Urine Occult Blood Urine Nitrite Urine Bilirubin Urine Urobilinogen Ur Leukocyte Esterase Urine RBC Urine WBC Ur Squamous Epith Cells Urine Bacteria Ur Microscopic Review Urine Culture Comments - Rads (name of study) No standard instances Radiology: Final report received (Addendum:Received signout with mental health evaluation pending.), Other (L wrist xray neg.) PD MEDICAL DECISION MAKING - ED course Complexity details: reviewed old records, reviewed results, re-evaluated patient, considered differential, d/w patient, d/w family ED course: 88 y/o F with multiple falls this week, pt is on blood thinners - Eloquis and fell today. No signs or report of head trauma. Exam is nonfocal though pt has some bilateral LE weakness and uses a walker at home. She has a chest wall contusion present over her sternum reportedly from the fall. Reports L wrist pain. Her wrist xray however is negative. EKG is afib with ischemia and is rate controlled. Obtained labs, CT head and chest/abd/pelvis. CT head neg. Ct chest shows acute chest wall contusion but no intrathoracic or intraabdominal injury or bleeding. She does have a possible UTI. Treated here w/ceftriaxone and will start keflex at home. CT also shows multiple non acute findings including a R lung mass that could be malignant. I did verbally notify the patient and her of this finding and put it in her discharge instructions. She also has R eye conjunctivitis already undergoing treatment. She is stable for discharge at t his time with outpt f/u. Departure - Departure Disposition: 01 Home, Self Care Clinical Impression: Lung mass Fall Qualifiers: Encounter type: initial encounter Qualified Code(s): W19.XXXA - Unspecified fall, initial encounter Chest wall contusion Qualifiers: Encounter type: initial encounter Laterality: unspecified laterality Qualified Code(s): S20.219A - Contusion of unspecified front wall of thorax, initial encounter UTI (urinary tract infection) Qualifiers: Urinary tract infection type: site unspecified Hematuria presence: with hematuria Qualified Code(s): N39.0 - Urinary tract infection, site not specified Cirrhosis of liver Qualifiers: Hepatic cirrhosis type: other cirrhosis Qualified Code(s): K74.69 - Other cirrhosis of liver Condition: Stable Record reviewed to determine appropriate education?: Yes Instructions: ED Contusion Chest Wall, ED UTI Cystitis Female Follow-Up: your,doctor [Other] Prescriptions: Cephalexin [Keflex] 500 mg PO Q6H #28 capsule Comments: You have a masslike lesion in your right lung that could be cancer. You need to follow up with your regular doctor. You also have a urinary tract infection and a chest wall injury from your fall. Continue the prescribed antibiotics until complete. Go to your regular doctor within a week to discuss your CT findings and recheck your symptoms
[2018-12-10] MEDS ORDERED: IOVERSOL 320 100 ML VIAL IVP ONE ×3 (09:44→12:19)
[2018-12-10 10:36] LABS: BILIRUBIN,URINE NEGATIVE (NEGATIVE); GLUCOSE, URINE (UA) NEGATIVE (NEGATIVE); KETONES,URINE (UA) NEGATIVE (NEGATIVE); LEUKOCYTE ESTERASE, URINE TRACE (NEGATIVE); NITRITE,URINE NEGATIVE (NEGATIVE); OCCULT BLOOD,URINE LARGE (NEGATIVE); PROTEIN,URINE 100 mg/dL (NEGATIVE); UROBILINOGEN,URINE >=8.0 E.U./dL (NORMAL)
[2018-12-10 10:38] LABS: CLARITY,URINE CLOUDY (CLEAR)
--- NOTE | 2018-12-10 10:52 | CT Report ---
Reason: fall on chest Procedure Date: 12/10/2018 Accession Number: [id number] / [id number] Procedure: CT - HEAD WO CPT Code: FULL RESULT: EXAM: CT HEAD EXAM DATE: 12/10/2018 10:21 AM. CLINICAL HISTORY: Ground-level fall, possible head trauma. COMPARISON: SINUSES 10/29/2018 2:04 PM. TECHNIQUE: Multiaxial CT images were obtained from the foramen magnum to the vertex. Reformats: Sagittal and coronal. IV contrast: None. In accordance with CT protocol optimization, one or more of the following dose reduction techniques were utilized for this exam: automated exposure control, adjustment of mA and/or KV based on patient size, or use of iterative reconstructive technique. FINDINGS: Parenchyma: [place] and white matter hypodensity present about the anterior right frontal lobe measuring approximately 2.5 cm in maximal dimension. No acute intra-cranial hemorrhage or mass lesion evident. Minimal scattered periventricular white matter hypodensities noted. Extraaxial Spaces: Normal for age. No subdural or epidural collections identified. Ventricles: Normal in size and position. Sinuses and Orbits: There is marked osseous thickening about the paranasal sinus eblle diffusely suggesting prior chronic mucoceles. Bilateral maxillary antrostomy defects present. Mild maxillary mucosal thickening present diffusely with small fluid level on the right. The ethmoid air cells are nearly completely opacified on the left and 50% opacified on the right. The bilateral frontal sinuses are completely opacified. Minimal sphenoid sinus mucosal thickening present bilaterally. Overall paranasal sinus opacities have decreased since last exam. The mastoid air cells are clear. Bones: No evidence of fracture or calvarial defect. Other: None. IMPRESSION: 1. No acute fracture or intracranial hemorrhage. 2. 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 Correlation with patient's history suggested. 3. Interval improvement in moderate acute/chronic pansinusitis as described. RADIA
[2018-12-10 10:53] LABS: BACTERIA,URINE Moderate /HPF (None Seen); SQUAMOUS EPITHELIAL CELL,UR RARE Squamous (<= Few)
--- NOTE | 2018-12-10 10:58 | XRAY Report ---
Reason: trauma, fall on hand Procedure Date: 12/10/2018 Accession Number: [id number] / [id number] Procedure: XR - Wrist 2 View LT CPT Code: FULL RESULT: EXAM: LEFT WRIST RADIOGRAPHY EXAM DATE: 12/10/2018 10:05 AM. CLINICAL HISTORY: Left wrist trauma after falling on hand. COMPARISON: None. TECHNIQUE: 3 views. FINDINGS: Bones: Diffuse osteopenia present. No acute fracture or bone lesion visualized. Joints: No dislocation. Moderate first CMC and mild STT joint osteoarthritis present. Soft Tissues: Normal. No soft tissue swelling. IMPRESSION: 1. No acute fracture or dislocation. 2. Base of thumb osteoarthritis. RADIA
[2018-12-10 11:00] LABS: BASOPHILS % (AUTO) 0.3 %; EOSINOPHILS % (AUTO) 0.2 %; HGB - HEMOGLOBIN 10.1 g/dL (12.0-16.0); LYMPHOCYTES % (AUTO) 4.1 %; MEAN CORPUSCULAR HEMOGLOBIN 25.7 pg (27.0-31.0); MEAN CORPUSCULAR HGB CONC 32.1 g/dL (32.0-36.0); MEAN CORPUSCULAR VOLUME 80.1 fL (81.0-99.0); MEAN PLATELET VOLUME 8.3 fL (7.9-10.8); MONOCYTES % (AUTO) 4.6 %; NEUTROPHILS % (AUTO) 90.8 %; PLT - PLATELET COUNT 71 10^3/uL (130-450); RED BLOOD COUNT 3.92 10^6/uL (4.20-5.40); RED CELL DISTRIBUTION WIDTH 21.4 % (12.0-15.0)
--- NOTE | 2018-12-10 11:02 | XRAY Report ---
Reason: chest pain Procedure Date: 12/10/2018 Accession Number: [id number] / [id number] Procedure: XR - Chest 1 View X-Ray CPT Code: 50832 FULL RESULT: EXAM: CHEST RADIOGRAPHY EXAM DATE: 12/10/2018 10:18 AM. CLINICAL HISTORY: Chest pain. COMPARISON: CHEST 1 VIEW 09/10/2017 7:53 PM. TECHNIQUE: 1 view. FINDINGS: Lungs/Pleura: Lung volumes are mildly diminished. Diffuse pulmonary vascular congestion is present. Linear opacities noted in the bilateral mid chest increased since last exam and could represent atelectasis and/or fissural fluid. Perihilar bronchial wall thickening noted. Peripheral septal thickening present as before. No definite effusions or pneumothorax. Mediastinum: Mildly enlarged cardiac silhouette as before. Other: None. IMPRESSION: 1. Cardiopulmonary vascular congestion with increasing problem edema compared to prior exam. An interstitial pneumonia can have a similar appearance in the correct clinical setting. 2. Low lung volumes with some increase in linear atelectasis and/or fissural fluid. RADIA
[2018-12-10 11:10] LABS: CALCIUM 8.7 mg/dL (8.5-10.3); CREATININE 1.6 mg/dL (0.4-1.0)
[2018-12-10] MEDS ORDERED: SODIUM CHLORIDE 0.9% 1,000 ML IV ONE (11:14)
[2018-12-10 11:48] LABS: ABNORMAL LYMPHS % (MANUAL) 0 %
[2018-12-10 11:50] LABS: BAND NEUTROPHILS % (MANUAL) 13 %; BASOPHILS # (MANUAL) 0.1 10^3/uL (0-0.1); BASOPHILS % (MANUAL) 1 %; EOSINOPHILS # (MANUAL) 0.1 10^3/uL (0-0.7); LYMPHOCYTES # (MANUAL) 1.1 10^3/uL (1.5-3.5); LYMPHOCYTES % (MANUAL) 5 %; MONOCYTES # (MANUAL) 0.4 10^3/uL (0.0-1.0); NEUTROPHILS # (MANUAL) 12.2 10^3/uL (1.5-6.6); NEUTROPHILS % (MANUAL) 74 %
[2018-12-10 11:54] LABS: PLATELET ESTIMATE, MANUAL DECREASED (<130,000) (NORMAL); PLATELET MORPHOLOGY 1+ LARGE PLATELETS (NORMAL)
[2018-12-10 11:57] LABS: DIFFERENTIAL COMMENT MANUAL DIFFERENTIAL
--- NOTE | 2018-12-10 12:47 | CT Report ---
Reason: fall trauma Procedure Date: 12/10/2018 Accession Number: [id number] / [id number] Procedure: CT - CHEST W CPT Code: FULL RESULT: EXAM: CT CHEST, ABDOMEN AND PELVIS EXAM DATE: 12/10/2018 12:13 PM. CLINICAL HISTORY: Fall trauma. COMPARISONS: Chest radiograph, same day. Chest radiograph 09/10/2017. TECHNIQUE: Routine helical CT imaging was performed through the chest, abdomen, and pelvis. IV contrast: 75 mL Optiray 320. Enteric contrast: No. Reconstructions: Coronal and sagittal. In accordance with CT protocol optimization, one or more of the following dose reduction techniques were utilized for this exam: automated exposure control, adjustment of mA and/or KV based on patient size, or use of iterative reconstructive technique. FINDINGS: Lungs/Pleura: Images through the lungs are motion degraded. 1. There is a masslike density in the right lower lobe on series 4 image 36 measuring approximately 5.1 x 3.9 cm. 2. There is linear platelike atelectasis in the midportion of the right lung. There is linear atelectasis to a lesser degree in the lingula. 3. There is a small right pleural effusion. There is a trace left pleural effusion. No pneumothorax. Mediastinum: There is right paratracheal and subcarinal mediastinal adenopathy. 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 Subcarinal series 3 image 26 measuring 1.5 x 2.9 cm. 2. Cluster of right paratracheal lymph nodes on series 3 image 22 together measuring approximately 2.1 x 3.2 cm. 3. Soft tissue structure, presumed a lymph node, posterior to the left atrium on the right series 3 image 32 measuring 1.6 x 2.2 cm. There is left atrial dilation. There is right atrial dilation. There are atherosclerotic vascular calcifications. There is a small amount of fluid in the superior pericardial recess. No large central pulmonary arterial filling defects are appreciated. Liver: There is a 1.1 cm round enhancing lesion in the right hepatic lobe on series 2 image 17. The liver has a fine nodular contour, heterogeneous enhancement pattern, and is enlarged measuring 25 cm. Gallbladder/Bile Ducts: No obvious gallstones. Borderline call bladder wall thickening measuring 3 mm. The common bile duct measures up to 0.9 cm in diameter. Spleen: Normal. Pancreas: Normal. Adrenal Glands: There is thickening of both adrenal glands without discrete suspicious nodules. Kidneys: Negative for hydronephrosis. There are small bilateral low-density cortical lesions, presumably cysts. Peritoneal Cavity/Bowel: No free air. No bowel obstruction. There is trace perihepatic fluid. There is colonic diverticulosis. The appendix is not definitely visualized. Pelvic Organs: The pelvis is partially obscured by beam hardening artifact from bilateral hip prostheses. There is a calcification in the uterus, probably a calcified fibroid. Vasculature: There is atherosclerotic calcification in the aorta and iliac arteries without aneurysm. The portal vein is patent but enlarged measuring up to 2 cm in diameter. Bones: There are bilateral hip prostheses. There is an old T11 compression fracture with vertebroplasty. There is degenerative disk disease and facet hypertrophy and lumbar spine. There is a convex right lumbar scoliosis. No acute fractures are appreciated. Other: There is mild diffuse body wall edema. There are no pathologically enlarged inguinal, pelvic, mesenteric, or retroperitoneal lymph nodes. There is asymmetric superficial thickening in the medial left anterior chest wall series 3 image 29 measuring up to approximately 0.6 cm. There is generalized muscular atrophy. IMPRESSION: Chest. 1. Technically limited secondary to respiratory motion degradation. 2. There is a masslike lesion in the right lower lobe, possible malignancy. 3. There is mediastinal adenopathy. 4. There is cardiomegaly with enlargement of the atria. 5. Small right pleural effusion, trace left pleural effusion. 6. Asymmetric superficial thickening in the medial left anterior chest wall. Abdomen and pelvis. 1. Cirrhotic appearance of the liver. There is a 1.1 cm enhancing lesion in the right hepatic lobe, incompletely characterized, hepatocellular carcinoma is a possibility. 2. There is trace perihepatic fluid. 3. Extra hepatic bile duct measuring 0.9 cm, upper limits of normal for a patient this age. 4. Borderline gallbladder wall thickening. No obvious gallstones. 5. Colonic diverticulosis. 6. Mild diffuse body wall edema. RADIA
[2018-12-10] MEDS ORDERED: SODIUM CHLORIDE 0.9% 500 ML IV ONE (13:15)
[2018-12-10] MEDS ORDERED: cefTRIAXone 1 GM in SODIUM CHLORIDE 0.9% MINIBAG 100 ML IV STA (13:20)
[2018-12-10 13:41] VITALS: BP 121/49
== END 2018-12-10 14:55 | disposition home or self-care (01) ==
LOC: EDUNIT# → ED 09:43
DX: M25.532 Pain in left wrist (principal); R91.8 Other nonspecific abnormal finding of lung field; S20.219A Contusion of unspecified front wall of thorax, initial encounter; N39.0 Urinary tract infection, site not specified; K74.69 Other cirrhosis of liver; I48.91 Unspecified atrial fibrillation; R41.0 Disorientation, unspecified; H10.9 Unspecified conjunctivitis; E11.9 Type 2 diabetes mellitus without complications; W19.XXXA Unspecified fall, initial encounter; Z91.81 History of falling; Z79.84 Long term (current) use of oral hypoglycemic drugs; Z79.01 Long term (current) use of anticoagulants
CPT/HCPCS: 36415; 70450; 71045; 71260; 73100; 74177; 80048; 81001; 84484; 85025; 87086; 87181; 93005; 96374; 99283; 99284; Q9967; 81003

== ENCOUNTER 2019-06-22 10:28 | Inpatient (IN) | payer MEDICARE, OTHER ==
--- NOTE | 2019-06-22 11:21 | ED Physician Documentation ---
PD HPI GI BLEED - Stated complaint Stated Complaint: BLOOD IN STOOL - Chief complaint Chief Complaint: General - History obtained from History obtained from: Patient - History of Present Illness Timing - onset: Today (a few hours ago) Timing - duration: Hours Timing - details: Abrupt onset Associated symptoms: Maroon stool, Diarrhea. No: Vomiting, Coffee ground emesis, Hematemesis, BRBPR, Black/tarry stool, Constipation, Abdominal pain, Chest pain, Fever, Dizzy, Near syncope / syncope Contributing factors: Anticoagulated (patient is on Xarelto for afib) Improved by: Other (nothing) Worsened by: Other (bowel movements) Similar symptoms before: Has not had sx before Recently seen: Not recently seen - Treatment prior to arrival Treatment prior to arrival: none - Additional information Additional information: Pt had a colonoscopy a few years ago that was normal Review of Systems Ten Systems: 10 systems reviewed and negative Constitutional: denies: Fever Cardiac: denies: Chest pain / pressure, Palpitations Respiratory: denies: Dyspnea GI: reports: Diarrhea, Bloody / black stool. denies: Abdominal Pain, Abdominal Swelling, Nausea, Vomiting, Constipation, Hematemesis : reports: Reviewed and negative. 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 HEENT: Chronic vision loss, Chronic hearing loss Psych: Anxiety Musculoskeletal: Osteoarthritis Derm: Eczema - Past Surgical History Past Surgical History: Yes Ortho: Hip replacement, Spine surgery, Other - Present Medications Home Medications: Ambulatory Orders Medication Instructions Recorded Confirmed Furosemide 20 mg PO DAILY 09/24/13 11/23/18 Pantoprazole Sodium [Protonix] 40 mg PO DAILY 09/24/13 11/23/18 metFORMIN [Glucophage] 500 mg PO BIDWM 09/24/13 11/23/18 methIMAzole [Methimazole] 10 mg PO MOWEFR 09/24/13 11/23/18 Albuterol Sulfate [Proair 90 mcg IH Q4HR PRN 07/13/15 11/23/18 Respiclick] Diclofenac Sodium [Voltaren] 2 - 4 gm TP DAILY 07/13/15 11/23/18 Minoxidil [Hair Regrowth Treatment] 0 gm TP BID 07/13/15 11/23/18 ALPRAZolam [Alprazolam] 0.25 mg PO DAILY PRN 08/10/17 11/23/18 Niacin [Niaspan] 500 mg PO DAILY 08/10/17 11/23/18 Cholecalciferol (Vitamin D3) 2,000 unit PO DAILY 09/10/17 11/23/18 [Vitamin D3] Calcium Carbonate/Vitamin D3 1 each PO BID 09/11/17 11/23/18 [Oyster Shell Calcium-Vit D Tab] Cetirizine [ZyrTEC] 10 mg PO DAILY 09/11/17 11/23/18 Ipratropium [place] 2 sprays RODNEY Q8H PRN 09/11/17 11/23/18 Montelukast [Singulair] 10 mg PO QPM 09/11/17 09/11/17 Moxifloxacin HCl [Moxifloxacin] 1 drops EACHEYE QID 09/11/17 11/23/18 Rivaroxaban [Xarelto] 1,500 mg PO QDDINNER 09/11/17 11/23/18 carvediloL [Coreg] 25 mg PO BIDWM #0 09/11/17 11/23/18 Tramadol HCl 50 mg PO Q6H PRN #15 tablet 11/23/18 dexAMETHasone [Decadron] 4 mg PO DAILY #5 tablet 11/23/18 diltiaZEM [Cardizem] 11/23/18 Cephalexin [Keflex] 500 mg PO Q6H #28 capsule 12/10/18 - Allergies Allergies/Adverse Reactions: Allergies Allergy/AdvReac Type Severity Reaction Status Date / Time SEGUNDO Inhibitors Allergy Unknown Verified 06/22/19 10:35 amoxicillin Allergy Unknown Verified 06/22/19 10:35 codeine Allergy hyperactivi Verified 06/22/19 10:35 ty Penicillins Allergy Rash Verified 06/22/19 10:35 - Social History Does the pt smoke?: No Smoking Status: Never smoker Does the pt drink ETOH?: Yes Does the pt have substance abuse?: No - Immunizations Immunizations are current?: No - POLST Patient has POLST: Yes PD ED PE NORMAL - Vitals Vital signs reviewed: Yes - General General: Alert and oriented X 3, No acute distress, Well developed/nourished - HEENT HEENT: Atraumatic, Pharynx benign - Neck Neck: Supple, no meningeal sign, No JVD - Cardiac Cardiac: RRR, No murmur, No gallop, No rub - Respiratory Respiratory: No respiratory distress, Clear bilaterally - Abdomen Abdomen: Soft, Non tender, Non distended - Female Female : Deferred - Derm Derm: Normal color, Warm and dry, No rash, Other (no pallor ) - Extremities Extremities: No deformity, No edema, No calf tenderness / cord - Neuro Neuro: Alert and oriented X 3 Eye Opening: Spontaneous Motor: Obeys Commands Verbal: Oriented GCS Score: 15 - Psych Psych: Normal mood, Normal affect PD ED PE EXPANDED - Rectal Rectal: Normal Tone, Other (maroon colored stool on exam ). No: Mass Results - Vitals Vitals: Vital Signs - 24 hr 06/22/19 06/22/19 06/22/19 10:35 12:05 12:47 Temperature 36.6 C Heart Rate 95 58 L 68 Respiratory 20 18 18 Rate Blood Pressure 151/58 H 125/85 H 114/58 L O2 Saturation 99 100 98 Oxygen O2 Source Room air - Labs Labs: Laboratory Tests 06/22/19 06/22/19 11:25 11:25 WBC 6.2 RBC 3.75 L Hgb 10.9 L Hct 35.3 L MCV 94.1 MCH 29.1 MCHC 30.9 L RDW 17.5 H Plt Count 82 L MPV 9.7 Neut # (Auto) 4.5 Lymph # (Auto) 1.1 L [place] # (Auto) 0.5 Eos # (Auto) 0.1 Baso # (Auto) 0.0 Absolute Nucleated RBC 0.00 Nucleated RBC % 0.0 Sodium 138 Potassium 3.3 L Chloride 101 Carbon Dioxide 24 Anion Gap 13.0 BUN 49 H Creatinine 1.7 H Estimated GFR (MDRD) 28 L Glucose 208 H Calcium 9.5 Total Bilirubin 0.5 AST 25 ALT 14 Alkaline Phosphatase 75 Total Protein 8.3 H Albumin 4.2 Globulin 4.1 Albumin/Globulin Ratio 1.0 Lipase 47 PD MEDICAL DECISION MAKING - ED course Complexity details: reviewed results, re-evaluated patient, considered differential, d/w patient, d/w family ED course: ddx- upper gi bleed, lower gi bleed, anticoagulation adverse effect, avm, diverticulosis, anemia 89 y/o F with new onset of bloody maroon colored stool today, stable vitals but pt is on Xarelto for afib. Last dose taken was last night. Obtaining large bore IV and labs. H&H stable, vitals stable, but pt has had recurrent episodes of maroon colored stool in the ED. Given she is on Xarelto, unlikely to receive benefit in anticoagulation reversal with vitamin K or FFP. Pt was given TXA. Discussed case with Dr. Mahan who will consult for scope and Dr. Kaur who will admit pt to observation. - Consults Consults: Consulted (name) (Dr. Mahan Surgery ), Request documentation consultant evaluate patient Departure - Departure Disposition: ED Place in Observation Clinical Impression: GI bleeding Qualifiers: GI bleed type/associated pathology: unspecified gastrointestinal hemorrhage type Qualified Code(s): K92.2 - Gastrointestinal hemorrhage, unspecified Anticoagulant adverse reaction Qualifiers: Encounter type: initial encounter Qualified Code(s): T45.515A - Adverse effect of anticoagulants, initial encounter Condition: Fair Record reviewed to determine appropriate education?: Yes
[2019-06-22 11:41] LABS: BASOPHILS % (AUTO) 0.5 %; EOSINOPHILS # (AUTO) 0.1 10^3/uL (0.0-0.7); EOSINOPHILS % (AUTO) 1.1 %; HGB - HEMOGLOBIN 10.9 g/dL (12.0-16.0); LYMPHOCYTES # (AUTO) 1.1 10^3/uL (1.5-3.5); LYMPHOCYTES % (AUTO) 17.4 %; MEAN CORPUSCULAR HEMOGLOBIN 29.1 pg (27.0-31.0); MEAN CORPUSCULAR HGB CONC 30.9 g/dL (32.0-36.0); MEAN CORPUSCULAR VOLUME 94.1 fL (81.0-99.0); MEAN PLATELET VOLUME 9.7 fL (7.9-10.8); MONOCYTES # (AUTO) 0.5 10^3/uL (0.0-1.0); MONOCYTES % (AUTO) 8.5 %; NEUTROPHILS # (AUTO) 4.5 10^3/uL (1.5-6.6); NEUTROPHILS % (AUTO) 72.3 %; PLT - PLATELET COUNT 82 10^3/uL (130-450); RED BLOOD COUNT 3.75 10^6/uL (4.20-5.40); RED CELL DISTRIBUTION WIDTH 17.5 % (12.0-15.0); WHITE BLOOD COUNT 6.2 x10^3/uL (4.8-10.8)
[2019-06-22 12:07] LABS: ALBUMIN 4.2 g/dL (3.2-5.5); BILIRUBIN,TOTAL 0.5 mg/dL (0.2-1.0); CALCIUM 9.5 mg/dL (8.5-10.3); CREATININE 1.7 mg/dL (0.4-1.0); TOTAL PROTEIN 8.3 g/dL (6.7-8.2)
[2019-06-22] MEDS ORDERED: TRANEXAMIC ACID 1,000 MG in SODIUM CHLORIDE 0.9% 100ML 100 ML IV STA (12:32)
[2019-06-22] MEDS ORDERED: POTASSIUM CHLORIDE 20 MEQ TABLET PO STA (13:47)
[2019-06-22] MEDS ORDERED: ACETAMINOPHEN 325 MG TABLET PO PRN (13:50)
[2019-06-22] MEDS ORDERED: ONDANSETRON 4 MG/2 ML VIAL IVP PRN (13:50)
[2019-06-22] MEDS ORDERED: ZOLPIDEM 5 MG TABLET PO PRN (13:50)
[2019-06-22] MEDS ORDERED: ALBUTEROL NEB 2.5 MG/3 ML INH PRN (13:59)
[2019-06-22] MEDS ORDERED: SODIUM CHLORIDE 0.9% 1,000 ML IV SCH (14:00)
[2019-06-22] MEDS ORDERED: IPRATROPIUM/ALBUTEROL 3 ML NEB INH PRN (14:00)
[2019-06-22] MEDS ORDERED: ALPRAZolam 0.25 MG TABLET PO PRN (14:03)
--- NOTE | 2019-06-22 14:08 | HISTORY & PHYSICAL EXAMINATION ---
Chief Complaint - Chief Complaint Chief Complaint: GI bleed History of Present Illness - History of Present Illness HPI Comment/Other: Ms. Waddell is a 89-yrs-old female with a PMH significant for HTN, chronic anemia, Afib with Xarelto, DM2, anxiety, COPD, asthma, who present ER complain of GI bleeding. pt report she had three times blood in stool in this am at her home. She reports she's had 3 loose BMs this am with bright red blood in the toilet and on paper. she had one maroon stool in ER. She denies syncope, dizziness, lightheaded, chest pain, shortness of breath. She denies abdominal pain, nausea, vomiting or diarrhea, dysuria, hemtauria, headache, vision, focal neurological deficits. she report she had one colonoscopy about twenty years ago which was benign as she remembered. she report she took Xaralto for A-fib. The last dose was on the last night. Her HGB is 10.9 today. Otherwise, she is hemodynamic stable. GI surgeon was called by ER provider. pt is admitted for GI bleed. 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 : reports: None HEENT: reports: Chronic vision loss, Chronic hearing loss Psych: reports: Anxiety Musculoskeletal: reports: Osteoarthritis Derm: reports: Eczema MRSA Hx?: No - Past Surgical History Ortho: reports: Hip replacement, Spine surgery, Other - POLST Patient has POLST: Yes Meds/Allgy - Home Medications Home Medications: Ambulatory Orders Medication Instructions Recorded Confirmed Furosemide 20 mg PO DAILY 09/24/13 06/22/19 Pantoprazole Sodium [Protonix] 40 mg PO DAILY 09/24/13 06/22/19 metFORMIN [Glucophage] 500 mg PO BIDWM 09/24/13 06/22/19 methIMAzole [Methimazole] 10 mg PO MOWEFR 09/24/13 06/22/19 Albuterol Sulfate [Proair 90 mcg IH Q4HR PRN 07/13/15 06/22/19 Respiclick] Diclofenac Sodium [Voltaren] 2 - 4 gm TP DAILY 07/13/15 06/22/19 Minoxidil [Hair Regrowth Treatment] 0 gm TP BID 07/13/15 06/22/19 ALPRAZolam [Alprazolam] 0.25 mg PO DAILY PRN 08/10/17 06/22/19 Niacin [Niaspan] 500 mg PO DAILY 08/10/17 06/22/19 Cholecalciferol (Vitamin D3) 2,000 unit PO DAILY 09/10/17 06/22/19 [Vitamin D3] Cetirizine [ZyrTEC] 10 mg PO DAILY 09/11/17 06/22/19 Ipratropium [place] 2 sprays RODNEY Q8H PRN 09/11/17 06/22/19 Montelukast [Singulair] 10 mg PO QPM 09/11/17 06/22/19 Rivaroxaban [Xarelto] 15 mg PO QDDINNER 09/11/17 06/22/19 carvediloL [Coreg] 25 mg PO BIDWM #0 09/11/17 06/22/19 diltiaZEM [Cardizem] 120 mg PO BID 11/23/18 06/22/19 - Allergies Allergies/Adverse Reactions: Allergies Allergy/AdvReac Type Severity Reaction Status Date / Time SEGUNDO Inhibitors Allergy Unknown Verified 06/22/19 10:35 amoxicillin Allergy Unknown Verified 06/22/19 10:35 codeine Allergy hyperactivi Verified 06/22/19 10:35 ty Penicillins Allergy Rash Verified 06/22/19 10:35 Review of Systems - Constitutional Constitutional: denies: Fatigue, Chills, Malaise, Weakness, Poor appetite, Diaphoresis, Night sweats, Weight gain, Weight loss - Eyes Eyes: denies: Pain, Irritation, Amaurosis, Blurred vision, Spots in vision, Field loss, Vision loss, Dipolpia - Ears, Nose & Throat Ears, Nose & Throat: denies: Ear pain, Hearing loss, Hearing aids, Tinnitus, Vertigo, Nasal pain, Nasal discharge, Nosebleeds, Nasal obstruction, Nasal congestion, Postnasal drainage, Dentures, Sore throat, Hoarseness, Mouth lesions, Bleeding gums - Cardiovascular Cariovascular: denies: Irregular heart rate, Palpitations, Chest pain, Edema, Lightheadedness, Syncope, Exertional dyspnea, Decr. exercise tolerance - Respiratory Respiratory: denies: Cough, Sputum production, Wheezing, Snoring, Hemoptysis, Orthopnea, SOB at rest, SOB with exertion, Apnea, Stridor - Gastrointestinal Gastrointestinal: reports: Rectal bleeding, Black stools, Bloody stools. denies: Abdominal pain, Abdominal distention, Constipation, Diarrhea, Change in bowel habits, Nausea, Vomiting, Bile emesis, Levy blood emesis, Coffee grounds emesis, Reflux/heartburn, Bloating, Poor appetite - Genitourinary Genitourinary: denies: Dysuria, Frequency, Urgency, Hematuria, Incontinence, Flank pain, Nocturia, Urethral discharge - Musculoskeletal Musculoskeletal: denies: Muscle pain, Back pain, Muscle aches, Stiffness, Limited range of motion, Muscle weakness, Gout, Joint pain - Integumentary Integumentary: denies: Rash, Pruritis, Lesions, Dryness, Lumps, Acne, Pigment changes, Nail changes - Neurological Neurological: denies: General weakness, Focal weakness, Headache, Dizziness, Numbness, Memory problems, Pre-existing deficit, Abnormal gait, Seizures, Incoordination, Slurred speech - Psychiatric Psychiatric: denies: Depression, Anxiety, Suicidal, Delusions, Hallucinations, Homicidal - Endocrine Endocrine: denies: Polyuria, Polydypsia, Polyphagia, Intolerance to cold - Hematologic/Lymphatic Hematologic/Lymphatic: reports: Anemia. denies: Bruising, Petechiae, Blood clots, Lymphadenopathy, Bleeding tendencies, Recurrent infections Exam - Vital Signs Vital Signs: Vital Signs x48h Temp Pulse Resp BP Pulse Ox 06/22/19 13:55 75 18 125/73 100 06/22/19 12:47 68 18 114/58 L 98 06/22/19 12:05 58 L 18 125/85 H 100 06/22/19 10:35 36.6 C 95 20 151/58 H 99 - Physical Exam General Appearance: positive: No acute distress, Alert. negative: Lethargic Eyes Bilateral: positive: Normal inspection, PERRL, EOMI, No lid inflammation ENT: positive: ENT inspection nml, Pharynx nml, No signs of dehydration. negative: Purulent nasal drainage Neck: positive: Nml inspection, Thyroid nml, No JVD, Trachea midline. negative: Thyromegaly, Lymphadenopathy (R), Lymphadenopathy (L), Stiff neck, Tracheal deviation Respiratory: positive: Chest non-tender, No respiratory distress, Breath sounds nml. negative: Wheezes, Rales, Rhonchi Cardiovascular: positive: No murmur, No gallop, Irregularly irregular. negative: Regular rate & rhythm, Extrasystoles, Tachycardia, Bradycardia, JVD present, Systolic murmur, Diastolic murmur Peripheral Pulses: positive: 2+ Abdomen: positive: Non-tender, No organomegaly, Nml bowel sounds, No distention. negative: Tenderness, Guarding, Rebound Back: positive: Nml inspection. negative: CVA tenderness (R), CVA tenderness (L) Skin: positive: Color nml, No rash, Warm, Dry. negative: Cyanosis, Diaphoresis, Pallor Extremities: positive: Non-tender, Full ROM, Nml appearance. negative: Calf tenderness, Daniel's sign/cords Neurologic/Psychiatric: positive: Oriented x3, Motor nml, Sensation nml, Mood/affect nml. negative: Weakness, Sensory loss, Facial droop, Slurred/abnml speech, Depressed mood/affect Sepsis Event Note (H) - Evaluation Current Stage of Sepsis: Ruled out Conclusion/Plan - Problem List (1) GI bleeding Conclusion/Plan: pt had total four maroon stool on today morning including one at hospital ER. pt's HGB is stable as far. pt report she had hx of chronic anemia. pt took Xarel to for her Afib until last night. GI surgeon was called for scope for pt H&H to monitor pt hold Xarelto NPO after midnight IVF of NS Qualifiers: GI bleed type/associated pathology: unspecified gastrointestinal hemorrhage type Qualified Code(s): K92.2 - Gastrointestinal hemorrhage, unspecified (2) Atrial fibrillation Conclusion/Plan: pt's HR is stable, pt denies palpitation, chest pain. reconcile home meds: coreg, cardizem. hold Xarelto for GI bleed tele and vital monitor Qualifiers: Atrial fibrillation type: chronic (3) Type 2 diabetes mellitus Conclusion/Plan: pt took metformin at home we start slide scale, ACHS, hypoglycemia protocol check A1C and hold Metformin now Qualifiers: Diabetes mellitus complication status: without complication (4) Dehydration Conclusion/Plan: pt has slight elevated creatinine, and clinically pt present dry mouth, dehydr ation IVF of NS gently lab monitor (5) Anxiety Conclusion/Plan: stable, pt has Xanax at home, reconcile it (6) History of COPD Conclusion/Plan: pt has no respiratory distress now. reconcile home meds, breath treatment PRN (7) HTN (hypertension) Conclusion/Plan: stable, reconcile home BP meds, continue vital monitor (8) Do not intubate, cardiopulmonary resuscitation (CPR)-only code status Conclusion/Plan: pt request DNR/DNI - Lab Results Fish Bones: 06/22/19 17:34 06/22/19 11:25 Core Measures - Anticipated LOS I expect patient to be DC'd or transferred within 96 hours.: Yes - DVT/VTE - Prophylaxis VTE/DVT Device ordered at admit?: Yes VTE/DVT Prophylaxis med ordered at admit?: Yes
[2019-06-22 14:23] LABS: HEMOGLOBIN A1C 0.51 g/dL; HEMOGLOBIN A1C % 6.4 % (4.6-6.2)
[2019-06-22] MEDS: PANTOPRAZOLE 40 MG VIAL IVP SCH ×2 (15:04→20:18)
[2019-06-22] MEDS: methIMAzole 5 MG TABLET PO SCH (15:04)
[2019-06-22] MEDS: SODIUM CHLORIDE FLUSH 0.9% 10 ML SYRINGE IVP PRN (15:04)
--- NOTE | 2019-06-22 16:12 | PHARMACY PROGRESS NOTE ---
- Best Possible Medication History Admit Date and Time: 06/22/19 1350 Processed by: Nursing Medication History completed: Yes As the person ultimately responsible for medication therapy, providers are able to order a medication from an existing home medication list in [facility] via the "Reconcile Routine" prior to Confirmation of that medication by it support manager. Such practice is discouraged except when the physician, in their clinical judgment, deems that a medical need exists for a medication without regard to previous use.
[2019-06-22] MEDS: carvediloL 12.5 MG TABLET PO SCH (16:53)
[2019-06-22] MEDS: SODIUM CHLORIDE FLUSH 0.9% 10 ML SYRINGE IVP SCH (16:53)
[2019-06-22] MEDS: INSULIN ASPART 300 UNIT/3 ML PEN SUBQ SCH ×2 (16:53→20:25)
[2019-06-22 17:38] LABS: HGB - HEMOGLOBIN 10.2 g/dL (12.0-16.0)
[2019-06-22] MEDS: SODIUM CHLORIDE 0.9% 1,000 ML IV SCH (20:19)
[2019-06-22] MEDS: diltiaZEM CD 120 MG CAPSULE PO SCH (20:19)
[2019-06-22] MEDS: MONTELUKAST 10 MG TABLET PO SCH (20:19)
[2019-06-22] MEDS: ALPRAZolam 0.25 MG TABLET PO PRN (20:21)
[2019-06-22 23:52] LABS: HGB - HEMOGLOBIN 9.2 g/dL (12.0-16.0)
[2019-06-23] MEDS: SODIUM CHLORIDE FLUSH 0.9% 10 ML SYRINGE IVP SCH ×3 (03:30→17:16)
[2019-06-23] MEDS: SODIUM CHLORIDE 0.9% 1,000 ML IV SCH (03:31)
[2019-06-23 05:24] LABS: BASOPHILS % (AUTO) 0.3 %; EOSINOPHILS # (AUTO) 0.1 10^3/uL (0.0-0.7); EOSINOPHILS % (AUTO) 0.6 %; LYMPHOCYTES # (AUTO) 1.1 10^3/uL (1.5-3.5); LYMPHOCYTES % (AUTO) 13.5 %; MEAN CORPUSCULAR HGB CONC 30.1 g/dL (32.0-36.0); MEAN CORPUSCULAR VOLUME 92.9 fL (81.0-99.0); MEAN PLATELET VOLUME 10.3 fL (7.9-10.8); MONOCYTES # (AUTO) 0.6 10^3/uL (0.0-1.0); MONOCYTES % (AUTO) 7.9 %; NEUTROPHILS # (AUTO) 6.1 10^3/uL (1.5-6.6); NEUTROPHILS % (AUTO) 77.4 %; PLT - PLATELET COUNT 76 10^3/uL (130-450); RED BLOOD COUNT 3.22 10^6/uL (4.20-5.40); RED CELL DISTRIBUTION WIDTH 17.4 % (12.0-15.0); WHITE BLOOD COUNT 7.8 x10^3/uL (4.8-10.8)
[2019-06-23 05:25] LABS: CREATININE 1.1 mg/dL (0.4-1.0); MAGNESIUM 1.8 mg/dL (1.7-2.8)
[2019-06-23] MEDS ORDERED: POTASSIUM CHLORIDE 20 MEQ TABLET PO ONE (07:32)
[2019-06-23] MEDS ORDERED: CETIRIZINE 10 MG TABLET PO SCH (09:00)
[2019-06-23 09:01] LABS: ABSOLUTE RETICS # AUTO 0.048 10^6/uL (0.020-0.110); RED BLOOD COUNT 3.18 10^6/uL (4.20-5.40)
[2019-06-23] MEDS: diltiaZEM CD 120 MG CAPSULE PO SCH ×2 (09:22→20:25)
[2019-06-23] MEDS: PANTOPRAZOLE 40 MG VIAL IVP SCH ×2 (09:24→20:25)
[2019-06-23] MEDS: carvediloL 12.5 MG TABLET PO SCH ×2 (09:24→17:16)
[2019-06-23] MEDS: INSULIN ASPART 300 UNIT/3 ML PEN SUBQ SCH ×4 (09:26→20:24)
[2019-06-23 11:48] LABS: HGB - HEMOGLOBIN 9.5 g/dL (12.0-16.0)
[2019-06-23] MEDS ORDERED: D5.45NS W/20 MEQ KCL 1,000 ML IV SCH ×2 (12:00→12:18)
--- NOTE | 2019-06-23 12:22 | CONSULTATION NOTE ---
Referring Provider Name of Referring Provider:: max Consult Date: 06/23/19 Chief Complaint - Chief Complaint Chief Complaint: GI bleed History of Present Illness - Admitted From Admitted From:: ED - History of Present Illness HPI Comment/Other: Maroon stool, Diarrhea. No: Vomiting, Coffee ground emesis, Hematemesis, BRBPR, Black/tarry stool, Constipation, Abdominal pain, Chest pain, Fever, Dizzy, Near syncope / syncope Contributing factors: Anticoagulated (patient is on Xarelto for afib) Improved by: Other (nothing) Worsened by: Other (bowel movements) Similar symptoms before: Has not had sx before Recently seen: Not recently seen - Treatment prior to arrival History - Past Medical History Cardiovascular: reports: Hypertension, High cholesterol, Atrial fibrillation Respiratory: reports: Other Neuro: reports: None Endocrine/Autoimmune: reports: Type 2 diabetes GI: reports: Diverticulitis 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: None HEENT: reports: Chronic vision loss, Chronic hearing loss Psych: reports: Anxiety Musculoskeletal: reports: Osteoarthritis Derm: reports: Eczema MRSA Hx?: No - Past Surgical History Ortho: reports: Hip replacement, Spine surgery, Other - POLST Patient has POLST: Yes Meds/Allgy - Home Medications Home Medications: Ambulatory Orders Medication Instructions Recorded Confirmed Furosemide 20 mg PO DAILY 09/24/13 06/22/19 Pantoprazole Sodium [Protonix] 40 mg PO DAILY 09/24/13 06/22/19 metFORMIN [Glucophage] 500 mg PO BIDWM 09/24/13 06/22/19 methIMAzole [Methimazole] 10 mg PO MOWEFR 09/24/13 06/22/19 Albuterol Sulfate [Proair 90 mcg IH Q4HR PRN 07/13/15 06/22/19 Respiclick] Diclofenac Sodium [Voltaren] 2 - 4 gm TP DAILY 07/13/15 06/22/19 Minoxidil [Hair Regrowth Treatment] 0 gm TP BID 07/13/15 06/22/19 ALPRAZolam [Alprazolam] 0.25 mg PO DAILY PRN 08/10/17 06/22/19 Niacin [Niaspan] 500 mg PO DAILY 08/10/17 06/22/19 Cholecalciferol (Vitamin D3) 2,000 unit PO DAILY 09/10/17 06/22/19 [Vitamin D3] Cetirizine [ZyrTEC] 10 mg PO DAILY 09/11/17 06/22/19 Ipratropium [place] 2 sprays RODNEY Q8H PRN 09/11/17 06/22/19 Montelukast [Singulair] 10 mg PO QPM 09/11/17 06/22/19 Rivaroxaban [Xarelto] 15 mg PO QDDINNER 09/11/17 06/22/19 carvediloL [Coreg] 25 mg PO BIDWM #0 09/11/17 06/22/19 diltiaZEM [Cardizem] 120 mg PO BID 11/23/18 06/22/19 - Allergies Allergies/Adverse Reactions: Allergies Allergy/AdvReac Type Severity Reaction Status Date / Time SEGUNDO Inhibitors Allergy Unknown Verified 06/22/19 10:35 amoxicillin Allergy Unknown Verified 06/22/19 10:35 codeine Allergy hyperactivi Verified 06/22/19 10:35 ty Penicillins Allergy Rash Verified 06/22/19 10:35 Review of Systems - Constitutional Constitutional: reports: Weakness - Cardiovascular Cariovascular: reports: Irregular heart rate, Edema - Gastrointestinal Gastrointestinal: reports: Rectal bleeding Exam - Vital Signs Reviewed Vital Signs: Yes Vital Signs: Vital Signs x48h Temp Pulse Resp BP Pulse Ox 06/23/19 11:35 36.8 C 72 16 152/65 H 96 06/23/19 07:30 36.8 C 78 18 149/76 H 95 06/23/19 05:06 36.6 C 85 16 143/88 H 96 - Physical Exam General Appearance: positive: No acute distress, Alert Eyes Bilateral: positive: Normal inspection Respiratory: positive: Chest non-tender, No respiratory distress, Breath sounds nml Cardiovascular: positive: Irregularly irregular Conclusion and Plan - Lab Results Laboratory Results 06/23/19 11:43: Hgb 9.5 L, Hct 31.1 L 06/23/19 11:43: Lactate Dehydrogenase 141 06/23/19 11:25: POC Whole Bld Glucose 137 H 06/23/19 07:33: POC Whole Bld Glucose 114 H 06/23/19 04:25: Vitamin B12 638 06/23/19 04:25: RBC 3.18 L, Reticulocyte % (Auto) 1.52, Absolute Retic 0.048 06/23/19 04:25: Sodium 141, Potassium 3.3 L, Chloride 108, Carbon Dioxide 23, Anion Gap 10.0, BUN 34 H, Creatinine 1.1 H, Estimated GFR (MDRD) 47 L, Glucose 113 H, Calcium 9.0, Magnesium 1.8 06/23/19 04:25: WBC 7.8, RBC 3.22 L, Hgb 9.0 L, Hct 29.9 L, MCV 92.9, MCH 28.0, MCHC 30.1 L, RDW 17.4 H, Plt Count 76 L, MPV 10.3, Neut # (Auto) 6.1, Lymph # (Auto) 1.1 L, [place] # (Auto) 0.6, Eos # (Auto) 0.1, Baso # (Auto) 0.0, Absolute Nucleated RBC 0.00, Nucleated RBC % 0.0 06/22/19 23:40: Hgb 9.2 L, Hct 29.9 L 06/22/19 20:22: POC Whole Bld Glucose 155 H 06/22/19 17:34: Hgb 10.2 L, Hct 33.1 L 06/22/19 16:45: POC Whole Bld Glucose 109 H 06/22/19 16:20: Troponin I High Sens 5.4 06/22/19 11:25: Glycated Hemoglobin 6.4 H, Estim Average Glucose 137 H 06/22/19 11:25: Blood Type B POSITIVE, Antibody Screen NEGATIVE 06/22/19 11:25: Sodium 138, Potassium 3.3 L, Chloride 101, Carbon Dioxide 24, An ion Gap 13.0, BUN 49 H, Creatinine 1.7 H, Estimated GFR (MDRD) 28 L, Glucose 208 H, Calcium 9.5, Total Bilirubin 0.5, AST 25, ALT 14, Alkaline Phosphatase 75, Total Protein 8.3 H, Albumin 4.2, Globulin 4.1, Albumin/Globulin Ratio 1.0, Lipase 47 06/22/19 11:25: WBC 6.2, RBC 3.75 L, Hgb 10.9 L, Hct 35.3 L, MCV 94.1, MCH 29.1, MCHC 30.9 L, RDW 17.5 H, Plt Count 82 L, MPV 9.7, Neut # (Auto) 4.5, Lymph # (Auto) 1.1 L, [place] # (Auto) 0.5, Eos # (Auto) 0.1, Baso # (Auto) 0.0, Absolute Nucleated RBC 0.00, Nucleated RBC % 0.0 - Diagnosis Diagnosis: GI bleeding manifesting as maroon stools currently on anti-coag xarelto - Plan Plan: Bowel prep today EGD/Colonoscopy tomorrow.
[2019-06-23 12:28] LABS: % IRON SATURATION 9 % (20-50); FERRITIN 89.1 ng/mL (11.0-306.8); IRON 30 ug/dL (28-170); TOTAL IRON BINDING CAPACITY 322 ug/dL (250-450); TRANSFERRIN 230 mg/dL (192-382)
[2019-06-23] MEDS: FERROUS SULFATE 325 MG TABLET PO SCH (14:41)
--- NOTE | 2019-06-23 15:07 | PROVIDER PROGRESS NOTE ---
Assessment/Plan - Problem List (1) GI bleeding Qualifiers: GI bleed type/associated pathology: unspecified gastrointestinal hemorrhage type Qualified Code(s): K92.2 - Gastrointestinal hemorrhage, unspecified Assessment/Plan: 06/23 pt still has maroon stool today morning. HGB is down to 9.5 from 10.9 surgeon will plan to do EGD and colonoscopy tomorrow NPO after midnight. IVF after midnight bowel prepare tonight pt had total four maroon stool on today morning including one at hospital ER. pt's HGB is stable as far. pt report she had hx of chronic anemia. pt took Xarelto for her Afib until last night. GI surgeon was called for scope for pt H&H to monitor pt hold Xarelto NPO after midnight IVF of NS (2) Atrial fibrillation Conclusion/Plan: pt's HR is stable, pt denies palpitation, chest pain. reconcile home meds: coreg, cardizem. hold Xarelto for GI bleed tele and vital monitor Qualifiers: Atrial fibrillation type: chronic (3) Type 2 diabetes mellitus Conclusion/Plan: pt took metformin at home we start slide scale, ACHS, hypoglycemia protocol check A1C and hold Metformin now Qualifiers: Diabetes mellitus complication status: without complication (4)acute kidney injury Conclusion/Plan: 06/23 significantly improved. creatinine is 1.1 now from 1.7 at the admission continue hydration gently, hold nephrological agents continue lab monitor pt has elevated creatinine, and clinically pt present dry mouth, dehydration IVF of NS gently lab monitor (5) Anxiety Conclusion/Plan: stable, pt has Xanax at home, reconcile it (6) History of COPD Conclusion/Plan: pt has no respiratory distress now. reconcile home meds, breath treatment PRN (7) HTN (hypertension) Conclusion/Plan: stable, reconcile home BP meds, continue vital monitor (8)combined systolic and diastolic heart failure 06/23 ECHO reveals pt has 40-45% and severe right heart abnormal pressure, RVSP 89mmhg which was better then previous ECHO study. continue home meds Coreg and cardizem for HR control, precaution of IVF. IVF start after pt is on NPO continue tele and vital monitor (2) Atrial fibrillation Qualifiers: Atrial fibrillation type: chronic (3) Type 2 diabetes mellitus Qualifiers: Diabetes mellitus complication status: without complication - Current Meds Current Meds: Current Medications Generic Name Dose Route Start Last Admin Trade Name Freq PRN Reason Stop Dose Admin Alprazolam 0.25 mg 06/22/19 14:05 06/22/19 20:21 Xanax PO 0.25 mg DAILY PRN Administration Anxiety Carvedilol 25 mg 06/22/19 17:00 06/23/19 09:24 Coreg PO 25 mg BIDWM MILANA Administration Cetirizine HCl 10 mg 06/23/19 09:00 06/23/19 09:38 Zyrtec PO Not Given DAILY MILANA Diltiazem HCl 120 mg 06/22/19 21:00 06/23/19 09:22 Cardizem Cd PO 120 mg BID MILANA Administration Ferrous Sulfate 325 mg 06/23/19 13:00 06/23/19 14:41 Feosol PO 325 mg DAILYWM MILANA Administration Insulin Aspart 1 - 9 unit 06/22/19 17:00 06/23/19 13:46 Novolog SUBQ Not Given 0800,1200,1700,2100 [facility] Protocol Methimazole 10 mg 06/22/19 15:00 06/22/19 15:04 Tapazole PO Not Given MOWEFR MILANA Montelukast Sodium 10 mg 06/22/19 21:00 06/22/19 20:19 Singulair PO 10 mg QPM MILANA Administration Pantoprazole Sodium 40 mg 06/22/19 14:00 06/23/19 09:24 Protonix IVP 40 mg BID MILANA Administration Sodium Chloride 10 ml 06/22/19 13:50 06/22/19 15:04 Normal Saline Flush 0.9% IVP 10 ml PRN PRN Administration NEEDED PER PROVIDER ORDERS Sodium Chloride 10 ml 06/22/19 17:00 06/23/19 09:25 Normal Saline Flush 0.9% IVP 10 ml 0100,0900,1700 MILANA Administration - Lab Result Fish Bone Diagrams: 06/23/19 11:43 06/23/19 04:25 - Additional Planning My Orders: My Active Orders 06/22/19 14:05 ALPRAZolam [Xanax] 0.25 mg PO DAILY PRN 06/22/19 15:00 methIMAzole [Tapazole] 10 mg PO MOWEFR 06/22/19 15:29 Code Status [OTHERS] Routine 06/22/19 17:00 Insulin Aspart [NovoLOG] 1 - 9 unit SUBQ 0800,1200,1700,2100 Sodium Chloride Flush 0.9% [Normal Saline Flush 0.9%] 10 ml IVP 0100,0900,1700 carvediloL [Coreg] 25 mg PO BIDWM 06/22/19 21:00 Montelukast [Singulair] 10 mg PO QPM diltiaZEM CD [Cardizem Cd] 120 mg PO BID 06/23/19 09:00 Cetirizine [ZyrTEC] 10 mg PO DAILY 06/23/19 13:00 Ferrous Sulfate [Feosol] 325 mg PO DAILYWM 06/23/19 16:00 H&H [HEMOGLOBIN AND HEMATOCRIT] [HEME] Timed PT WITH INR [COAG] Routine 06/23/19 18:45 Echo Transthoracic Complete [ECHO] Routine 06/23/19 Lunch Carb-controlled Diet [DIET] 06/24/19 00:01 NPO except Meds at Midnight [DIET] 06/24/19 01:00 D5.45ns W/20 Meq KCl 1,000 ml IV 83.333 mls/hr 06/24/19 05:00 BMP - BASIC METABOLIC PANEL [CHEM] DAILYLAB CBC - COMP BLD CT W/AUTO DIFF [HEME] DAILYLAB 06/25/19 05:00 BMP - BASIC METABOLIC PANEL [CHEM] DAILYLAB CBC - COMP BLD CT W/AUTO DIFF [HEME] DAILYLAB 06/26/19 05:00 BMP - BASIC METABOLIC PANEL [CHEM] DAILYLAB CBC - COMP BLD CT W/AUTO DIFF [HEME] DAILYLAB Subjective - Subjective Patient Reports: Feeling Better Objective Vital Signs: Vital Signs - 24 hr 06/22/19 06/22/19 06/23/19 16:00 23:45 05:06 Temperature 36.6 C 36.7 C 36.6 C Heart Rate [ 74 85 85 Radial] Respiratory 16 16 16 Rate Blood Pressure 152/90 H 141/85 H 143/88 H [Right Brachial artery] O2 Saturation 98 95 96 06/23/19 06/23/19 07:30 11:35 Temperature 36.8 C 36.8 C Heart Rate [ 78 72 Radial] Respiratory 18 16 Rate Blood Pressure 149/76 H 152/65 H [Right Brachial artery] O2 Saturation 95 96 Oxygen O2 Source Room air I&O (Last 24 Hrs): Intake and Output Totals x24h 06/21/19 06/22/19 06/23/19 23:59 23:59 23:59 Intake Total 1083.5 453.5 Output Total 1 Balance 1083.5 452.5 General: Alert, Oriented x3, No acute distress HEENT: Atraumatic Neck: Supple Lymphatic: no adenopathy Neuro: Alert, Non Focal, Oriented Times 3 Cardiovascular: Regular rate, Normal S1, Normal S2 Respiratory: Chest non-tender, No respiratory distress, Breath sounds nml Abdomen: Normal bowel sounds, Soft, No tenderness Extremities: Normal pulses - Results Results: Laboratory Results WBC 7.8 x10^3/uL (4.8-10.8) 06/23/19 04:25 RBC 3.18 10^6/uL (4.20-5.40) L 06/23/19 04:25 Hgb 9.5 g/dL (12.0-16.0) L 06/23/19 11:43 Hct 31.1 % (37.0-47.0) L 06/23/19 11:43 MCV 92.9 fL (81.0-99.0) 06/23/19 04:25 MCH 28.0 pg (27.0-31.0) 06/23/19 04:25 MCHC 30.1 g/dL (32.0-36.0) L 06/23/19 04:25 RDW 17.4 % (12.0-15.0) H 06/23/19 04:25 Plt Count 76 10^3/uL (130-450) L 06/23/19 04:25 MPV 10.3 fL (7.9-10.8) 06/23/19 04:25 Reticulocyte % (Auto) 1.52 % (0.5-2.3) 06/23/19 04:25 Neut # (Auto) 6.1 10^3/uL (1.5-6.6) 06/23/19 04:25 Lymph # (Auto) 1.1 10^3/uL (1.5-3.5) L 06/23/19 04:25 Stokes # (Auto) 0.6 10^3/uL (0.0-1.0) 06/23/19 04:25 Eos # (Auto) 0.1 10^3/uL (0.0-0.7) 06/23/19 04:25 Baso # (Auto) 0.0 10^3/uL (0.0-0.1) 06/23/19 04:25 Absolute Nucleated RBC 0.00 x10^3/uL 06/23/19 04:25 Nucleated RBC % 0.0 /100WBC 06/23/19 04:25 Absolute Retic 0.048 10^6/uL (0.020-0.110) 06/23/19 04:25 Sodium 141 mmol/L (135-145) 06/23/19 04:25 Potassium 3.3 mmol/L (3.5-5.0) L 06/23/19 04:25 Chloride 108 mmol/L (101-111) 06/23/19 04:25 Carbon Dioxide 23 mmol/L (21-32) 06/23/19 04:25 Anion Gap 10.0 (6-13) 06/23/19 04:25 BUN 34 mg/dL (6-20) H 06/23/19 04:25 Creatinine 1.1 mg/dL (0.4-1.0) H 06/23/19 04:25 Estimated GFR (MDRD) 47 (>89) L 06/23/19 04:25 Glucose 113 mg/dL (70-100) H 06/23/19 04:25 POC Whole Bld Glucose 137 mg/dL (70 - 100) H 06/23/19 11:25 Glycated Hemoglobin 6.4 % (4.6-6.2) H 06/22/19 11:25 Estim Average Glucose 137 (70-100) H 06/22/19 11:25 Calcium 9.0 mg/dL (8.5-10.3) 06/23/19 04:25 Magnesium 1.8 mg/dL (1.7-2.8) 06/23/19 04:25 Iron 30 ug/dL (28-170) 06/23/19 04:25 TIBC 322 ug/dL (250-450) 06/23/19 04:25 % Saturation 9 % (20-50) L 06/23/19 04:25 Transferrin 230 mg/dL (192-382) 06/23/19 04:25 Ferritin 89.1 ng/mL (11.0-306.8) 06/23/19 04:25 Total Bilirubin 0.5 mg/dL (0.2-1.0) 06/22/19 11:25 AST 25 IU/L (10-42) 06/22/19 11:25 ALT 14 IU/L (10-60) 06/22/19 11:25 Alkaline Phosphatase 75 IU/L (42-121) 06/22/19 11:25 Lactate Dehydrogenase 141 IU/L (91-225) 06/23/19 11:43 Troponin I High Sens 5.4 ng/L (2.3-14.8) 06/22/19 16:20 Total Protein 8.3 g/dL (6.7-8.2) H 06/22/19 11:25 Albumin 4.2 g/dL (3.2-5.5) 06/22/19 11:25 Globulin 4.1 g/dL (2.1-4.2) 06/22/19 11:25 Albumin/Globulin Ratio 1.0 (1.0-2.2) 06/22/19 11:25 Lipase 47 U/L (22-51) 06/22/19 11:25 Vitamin B12 638 pg/mL (180-914) 06/23/19 04:25 Blood Type B POSITIVE 06/22/19 11:25 Antibody Screen NEGATIVE 06/22/19 11:25 - Procedures Procedures: Procedures REVISION OF SYNTH SUB IN R HIP JT, FEM[employer], [employer] (10/31/16) Sepsis Event Note (H) - Evaluation Current Stage of Sepsis: Ruled out ABX Reporting Has patient been on IV antibiotics over the past 48 hours?: No Current Medications - Current Medications Current Medications: Active Medications Acetaminophen (Tylenol) 650 mg PO Q4HR PRN PRN Reason: Pain 1 to 4 Albuterol () 2.5 mg INH RTQ4H PRN PRN Reason: Wheezing Albuterol/Ipratropium (Duoneb) 3 ml INH RTQID PRN PRN Reason: Shortness of Air/Wheezing Alprazolam (Xanax) 0.25 mg PO DAILY PRN PRN Reason: Anxiety Last Admin: 06/22/19 20:21 Dose: 0.25 mg Carvedilol (Coreg) 25 mg PO BIDWM MILANA Last Admin: 06/23/19 09:24 Dose: 25 mg Cetirizine HCl (Zyrtec) 10 mg PO DAILY [facility] Last Admin: 06/23/19 09:38 Dose: Not Given Diltiazem HCl (Cardizem Cd) 120 mg PO BID [facility] Last Admin: 06/23/19 09:22 Dose: 120 mg Ferrous Sulfate (Feosol) 325 mg PO DAILYWM [facility] Last Admin: 06/23/19 14:41 Dose: 325 mg Potassium Chloride/Dextrose/Sod Cl (D5.45ns W/20 Meq Kcl) 1,000 mls @ 83.333 mls/hr IV .Q12H [facility] Stop: 06/24/19 12:59 Insulin Aspart (Novolog) 1 - 9 unit SUBQ 0800,1200,1700,2100 [facility]; Protocol Last Admin: 06/23/19 13:46 Dose: Not Given Methimazole (Tapazole) 10 mg PO MOWEFR [facility] Last Admin: 06/22/19 15:04 Dose: Not Given Montelukast Sodium (Singulair) 10 mg PO QPM [facility] Last Admin: 06/22/19 20:19 Dose: 10 mg Ondansetron HCl (Zofran Inj) 4 mg IVP Q6HR PRN PRN Reason: Nausea / Vomiting Pantoprazole Sodium (Protonix) 40 mg IVP BID [facility] Last Admin: 06/23/19 09:24 Dose: 40 mg Sodium Chloride (Normal Saline Flush 0.9%) 10 ml IVP PRN PRN PRN Reason: NEEDED PER PROVIDER ORDERS Last Admin: 06/22/19 15:04 Dose: 10 ml Sodium Chloride (Normal Saline Flush 0.9%) 10 ml IVP 0100,0900,1700 [facility] Last Admin: 06/23/19 09:25 Dose: 10 ml Sodium Sulfate/Potass Sulf/Mag Sulf (Suprep Bowel Prep Kit) 177 ml PO 1800,0500 [facility] Stop: 06/24/19 05:01 Zolpidem Tartrate (Ambien) 5 mg PO QPM PRN PRN Reason: Insomnia Furosemide 20 mg PO DAILY 09/24/13 Pantoprazole Sodium [Protonix] 40 mg PO DAILY 09/24/13 metFORMIN [Glucophage] 500 mg PO BIDWM 03/15/14 methIMAzole [Methimazole] 10 mg PO MOWEFR 09/24/13 Albuterol Sulfate [Proair Respiclick] 90 mcg IH Q4HR PRN 07/13/15 Diclofenac Sodium [Voltaren] 2 - 4 gm TP DAILY 07/13/15 Minoxidil [Hair Regrowth Treatment] 0 gm TP BID 07/13/15 ALPRAZolam [Alprazolam] 0.25 mg PO DAILY PRN 08/10/17 Niacin [Niaspan] 500 mg PO DAILY 08/10/17 Cholecalciferol (Vitamin D3) [Vitamin D3] 2,000 unit PO DAILY 09/10/17 Cetirizine [ZyrTEC] 10 mg PO DAILY 09/11/17 Ipratropium [place] 2 sprays RODNEY Q8H PRN 09/11/17 Montelukast [Singulair] 10 mg PO QPM 09/11/17 Rivaroxaban [Xarelto] 15 mg PO QDDINNER 09/11/17 diltiaZEM [Cardizem] 120 mg PO BID 11/23/18
[2019-06-23 16:20] LABS: HGB - HEMOGLOBIN 9.7 g/dL (12.0-16.0)
[2019-06-23 16:27] LABS: INR 1.2 (0.8-1.2); PT - PROTHROMBIN TIME 13.3 secs (9.9-12.6)
[2019-06-23] MEDS: SODIUM/POTASSIUM/MAG SULFATES 354 ML PREP KIT PO SCH (17:15)
[2019-06-23] MEDS: CETIRIZINE 10 MG TABLET PO SCH (20:25)
[2019-06-23] MEDS: SODIUM CHLORIDE FLUSH 0.9% 10 ML SYRINGE IVP PRN (20:25)
[2019-06-23] MEDS: MONTELUKAST 10 MG TABLET PO SCH (20:25)
[2019-06-24] MEDS: SODIUM CHLORIDE FLUSH 0.9% 10 ML SYRINGE IVP SCH ×3 (00:50→20:44)
[2019-06-24] MEDS: D5.45NS W/20 MEQ KCL 1,000 ML IV SCH ×2 (00:50→12:37)
[2019-06-24] MEDS: FLUTICASONE NASAL SPRAY NAS SCH ×2 (00:50→07:56)
[2019-06-24 04:56] LABS: BASOPHILS % (AUTO) 0.5 %; EOSINOPHILS # (AUTO) 0.1 10^3/uL (0.0-0.7); EOSINOPHILS % (AUTO) 1.2 %; HGB - HEMOGLOBIN 8.9 g/dL (12.0-16.0); LYMPHOCYTES % (AUTO) 22.6 %; MEAN CORPUSCULAR HEMOGLOBIN 28.7 pg (27.0-31.0); MEAN CORPUSCULAR HGB CONC 30.7 g/dL (32.0-36.0); MEAN CORPUSCULAR VOLUME 93.5 fL (81.0-99.0); MONOCYTES # (AUTO) 0.6 10^3/uL (0.0-1.0); MONOCYTES % (AUTO) 12.9 %; NEUTROPHILS # (AUTO) 2.7 10^3/uL (1.5-6.6); NEUTROPHILS % (AUTO) 62.6 %; PLT - PLATELET COUNT 63 10^3/uL (130-450); RED CELL DISTRIBUTION WIDTH 17.6 % (12.0-15.0); WHITE BLOOD COUNT 4.3 x10^3/uL (4.8-10.8)
[2019-06-24 05:10] LABS: CALCIUM 9.4 mg/dL (8.5-10.3)
[2019-06-24] MEDS: SODIUM/POTASSIUM/MAG SULFATES 354 ML PREP KIT PO SCH (05:15)
[2019-06-24] MEDS: carvediloL 12.5 MG TABLET PO SCH ×2 (07:53→17:41)
[2019-06-24] MEDS: diltiaZEM CD 120 MG CAPSULE PO SCH ×2 (07:54→20:43)
[2019-06-24] MEDS: INSULIN ASPART 300 UNIT/3 ML PEN SUBQ SCH ×4 (07:55→20:44)
[2019-06-24] MEDS: PANTOPRAZOLE 40 MG VIAL IVP SCH (08:04)
[2019-06-24] MEDS ORDERED: hydrALAZINE INJ 20 MG/ML VIAL IVP PRN (08:46)
[2019-06-24] MEDS: FERROUS SULFATE 325 MG TABLET PO SCH (08:55)
--- NOTE | 2019-06-24 11:06 | ANESTHESIA ---
Pre-Anesthesia VS, & Labs - Diagnosis Diagnosis GI bleeding manifesting as maroon stools currently on anti-coag xarelto - Procedure EGD, Cscope Vital Signs: Temp Pulse Resp BP Pulse Ox 36.7 C 78 16 142/70 H 97 06/24/19 10:18 06/24/19 10:18 06/24/19 10:18 06/24/19 09:40 06/24/19 10:18 Height 5 ft Weight (kg) 59.5 kg Body Mass Index 25.6 - NPO >8 hours Last Fluid Intake: bowel prep 614 - Is Patient ?: No - Lab Results Current Lab Results: Laboratory Tests 06/24/19 07:44: POC Whole Bld Glucose 130 H 06/24/19 04:40: Sodium 143, Potassium 3.7, Chloride 112 H, Carbon Dioxide 23, Anion Gap 8.0, BUN 19, Creatinine 1.0, Estimated GFR (MDRD) 52 L, Glucose 137 H, Calcium 9.4 06/24/19 04:40: WBC 4.3 L, RBC 3.10 L, Hgb 8.9 L, Hct 29.0 L, MCV 93.5, MCH 28.7, MCHC 30.7 L, RDW 17.6 H, Plt Count 63 L, MPV 10.0, Neut # (Auto) 2.7, Lymph # (Auto) 1.0 L, Casey # (Auto) 0.6, Eos # (Auto) 0.1, Baso # (Auto) 0.0, Absolute Nucleated RBC 0.00, Nucleated RBC % 0.0 06/23/19 20:19: POC Whole Bld Glucose 111 H 06/23/19 16:35: POC Whole Bld Glucose 154 H 06/23/19 16:12: PT 13.3 H, INR 1.2 06/23/19 16:12: Hgb 9.7 L, Hct 31.6 L 06/23/19 11:43: Hgb 9.5 L, Hct 31.1 L 06/23/19 11:43: Lactate Dehydrogenase 141 06/23/19 11:25: POC Whole Bld Glucose 137 H 06/23/19 07:33: POC Whole Bld Glucose 114 H 06/23/19 04:25: Ferritin 89.1, Vitamin B12 638 06/23/19 04:25: Iron 30, TIBC 322, % Saturation 9 L, Transferrin 230 06/23/19 04:25: RBC 3.18 L, Reticulocyte % (Auto) 1.52, Absolute Retic 0.048 06/23/19 04:25: Sodium 141, Potassium 3.3 L, Chloride 108, Carbon Dioxide 23, Anion Gap 10.0, BUN 34 H, Creatinine 1.1 H, Estimated GFR (MDRD) 47 L, Glucose 113 H, Calcium 9.0, Magnesium 1.8 06/23/19 04:25: WBC 7.8, RBC 3.22 L, Hgb 9.0 L, Hct 29.9 L, MCV 92.9, MCH 28.0, MCHC 30.1 L, RDW 17.4 H, Plt Count 76 L, MPV 10.3, Neut # (Auto) 6.1, Lymph # (Auto) 1.1 L, Casey # (Auto) 0.6, Eos # (Auto) 0.1, Baso # (Auto) 0.0, Absolute Nucleated RBC 0.00, Nucleated RBC % 0.0 06/22/19 23:40: Hgb 9.2 L, Hct 29.9 L 06/22/19 20:22: POC Whole Bld Glucose 155 H 06/22/19 17:34: Hgb 10.2 L, Hct 33.1 L 06/22/19 16:45: POC Whole Bld Glucose 109 H 06/22/19 16:20: Troponin I High Sens 5.4 06/22/19 11:25: Glycated Hemoglobin 6.4 H, Estim Average Glucose 137 H 06/22/19 11:25: Blood Type B POSITIVE, Antibody Screen NEGATIVE 06/22/19 11:25: Sodium 138, Potassium 3.3 L, Chloride 101, Carbon Dioxide 24, Anion Gap 13.0, BUN 49 H, Creatinine 1.7 H, Estimated GFR (MDRD) 28 L, Glucose 208 H, Calcium 9.5, Total Bilirubin 0.5, AST 25, ALT 14, Alkaline Phosphatase 75, Total Protein 8.3 H, Albumin 4.2, Globulin 4.1, Albumin/Globulin Ratio 1.0, Lipase 47 06/22/19 11:25: WBC 6.2, RBC 3.75 L, Hgb 10.9 L, Hct 35.3 L, MCV 94.1, MCH 29.1, MCHC 30.9 L, RDW 17.5 H, Plt Count 82 L, MPV 9.7, Neut # (Auto) 4.5, Lymph # (Auto) 1.1 L, Casey # (Auto) 0.5, Eos # (Auto) 0.1, Baso # (Auto) 0.0, Absolute Nucleated RBC 0.00, Nucleated RBC % 0.0 Lab results reviewed: Yes Fish Bones: 06/24/19 04:40 06/24/19 04:40 Home Medications and Allergies Active Medications Acetaminophen (Tylenol) 650 mg PO Q4HR PRN PRN Reason: Pain 1 to 4 Albuterol () 2.5 mg INH RTQ4H PRN PRN Reason: Wheezing Albuterol/Ipratropium (Duoneb) 3 ml INH RTQID PRN PRN Reason: Shortness of Air/Wheezing Alprazolam (Xanax) 0.25 mg PO DAILY PRN PRN Reason: Anxiety Last Admin: 06/22/19 20:21 Dose: 0.25 mg Carvedilol (Coreg) 25 mg PO BIDWM [facility] Last Admin: 06/24/19 07:53 Dose: 25 mg Cetirizine HCl (Zyrtec) 10 mg PO QPM [facility] Last Admin: 06/23/19 20:25 Dose: 10 mg Diltiazem HCl (Cardizem Cd) 120 mg PO BID [facility] Last Admin: 06/24/19 07:54 Dose: 120 mg Ferrous Sulfate (Feosol) 325 mg PO DAILYWM [facility] Last Admin: 06/24/19 08:55 Dose: Not Given Fluticasone Propionate (Flonase) 1 sprays RODNEY DAILY [facility] Last Admin: 06/24/19 07:56 Dose: Not Given Hydralazine HCl (Apresoline Inj) 10 mg IVP QID PRN PRN Reason: Hypertensive Emergency Potassium Chloride/Dextrose/Sod Cl (D5.45ns W/20 Meq Kcl) 1,000 mls @ 83.333 ml s/hr IV .Q12H [facility] Stop: 06/24/19 12:59 Last Admin: 06/24/19 00:50 Dose: 83.333 mls/hr Insulin Aspart (Novolog) 1 - 9 unit SUBQ 0800,1200,1700,2100 [facility]; Protocol Last Admin: 06/24/19 07:55 Dose: Not Given Methimazole (Tapazole) 10 mg PO MOWEFR [facility] Last Admin: 06/22/19 15:04 Dose: Not Given Montelukast Sodium (Singulair) 10 mg PO QPM [facility] Last Admin: 06/23/19 20:25 Dose: 10 mg Ondansetron HCl (Zofran Inj) 4 mg IVP Q6HR PRN PRN Reason: Nausea / Vomiting Pantoprazole Sodium (Protonix) 40 mg IVP BID [facility] Last Admin: 06/24/19 08:04 Dose: 40 mg Sodium Chloride (Normal Saline Flush 0.9%) 10 ml IVP PRN PRN PRN Reason: NEEDED PER PROVIDER ORDERS Last Admin: 06/23/19 20:25 Dose: 10 ml Sodium Chloride (Normal Saline Flush 0.9%) 10 ml IVP 0100,0900,1700 [facility] Last Admin: 06/24/19 08:05 Dose: 10 ml Zolpidem Tartrate (Ambien) 5 mg PO QPM PRN PRN Reason: Insomnia Furosemide 20 mg PO DAILY 09/24/13 Pantoprazole Sodium [Protonix] 40 mg PO DAILY 09/24/13 metFORMIN [Glucophage] 500 mg PO BIDWM 09/24/13 methIMAzole [Methimazole] 10 mg PO MOWEFR 09/24/13 Albuterol Sulfate [Proair Respiclick] 90 mcg IH Q4HR PRN 07/13/15 Diclofenac Sodium [Voltaren] 2 - 4 gm TP DAILY 07/13/15 Minoxidil [Hair Regrowth Treatment] 0 gm TP BID 07/13/15 ALPRAZolam [Alprazolam] 0.25 mg PO DAILY PRN 08/10/17 Niacin [Niaspan] 500 mg PO DAILY 08/10/17 Cholecalciferol (Vitamin D3) [Vitamin D3] 2,000 unit PO DAILY 09/10/17 Cetirizine [ZyrTEC] 10 mg PO DAILY 09/11/17 Ipratropium [place] 2 sprays RODNEY Q8H PRN 09/11/17 Montelukast [Singulair] 10 mg PO QPM 09/11/17 Rivaroxaban [Xarelto] 15 mg PO QDDINNER 09/11/17 diltiaZEM [Cardizem] 120 mg PO BID 11/23/18 Allergies/Adverse Reactions: Allergies Allergy/AdvReac Type Severity Reaction Status Date / Time [id number] Inhibitors Allergy Unknown Verified 06/22/19 10:35 amoxicillin Allergy Unknown Verified 06/22/19 10:35 codeine Allergy hyperactivi Verified 06/22/19 10:35 ty Penicillins Allergy Rash Verified 06/22/19 10:35 Anes History & Medical History - Anesthetic History Anesthesia Complications: reports: No previous complications Family history of Anesthesia Complications: Denies Family history of Malignant Hyperthermia: Denies - Medical History Cardiovascular: reports: Hypertension, High cholesterol, DE (silent, no stents/intervention), Atrial fibrillation, Other (EF 35-40 (06/24 echo)) Pulmonary: reports: Other (hx pulm HTN) Gastrointestinal: reports: Diverticulitis Urinary: reports: None Neuro: reports: None Musculoskeletal: reports: Osteoarthritis Endocrine/Autoimmune: reports: Type 2 diabetes Blood Disorders: reports: None Skin: reports: Eczema Smoking Status: Never smoker - Surgical History General: Colonoscopy Eyes Ears Nose Throat (EENT): Tonsil/Adenoidectomy Orthopedic: Hip replacement, Spine surgery, Other Exam General: Alert, Oriented x3, Cooperative Dental: WNL Mouth Openin Fingerbreadth Neck Mobility: Normal Mallampati classification: II Thyromental Distance: 4-6 cm Respiratory: Lungs clear, Normal breath sounds, No respiratory distress Cardiovascular: Other (irreg, AF) Neurological: Normal speech Mental/Cognitive Status: Alert/Oriented X3, Normal for patient Cognitive Status: Within normal limits Plan Anesthesia Type: MAC Consent for Procedure(s) Verified and Reviewed: Yes Code Status: Attempt Resuscitation ASA classification: 3-Severe systemic disease Is this case an emergency?: Yes
[2019-06-24] MEDS ORDERED: LACTATED RINGERS 1,000 ML IV ONE (13:05)
[2019-06-24 13:06] LABS: HGB - HEMOGLOBIN 9.7 g/dL (12.0-16.0)
--- NOTE | 2019-06-24 15:20 | PROVIDER PROGRESS NOTE ---
Assessment/Plan - Problem List (1) GI bleeding Qualifiers: GI bleed type/associated pathology: unspecified gastrointestinal hemorrhage type Qualified Code(s): K92.2 - Gastrointestinal hemorrhage, unspecified (2) Atrial fibrillation Qualifiers: Atrial fibrillation type: chronic (3) Type 2 diabetes mellitus Qualifiers: Diabetes mellitus complication status: without complication - Current Meds Current Meds: Current Medications Generic Name Dose Route Start Last Admin Trade Name Freq PRN Reason Stop Dose Admin Alprazolam 0.25 mg 06/22/19 14:05 06/22/19 20:21 Xanax PO 0.25 mg DAILY PRN Administration Anxiety Carvedilol 25 mg 06/22/19 17:00 06/24/19 07:53 Coreg PO 25 mg BIDWM MILANA Administration Cetirizine HCl 10 mg 06/23/19 21:00 06/23/19 20:25 Zyrtec PO 10 mg QPM MILANA Administration Diltiazem HCl 120 mg 06/22/19 21:00 06/24/19 07:54 Cardizem Cd PO 120 mg BID MILANA Administration Ferrous Sulfate 325 mg 06/23/19 13:00 06/24/19 08:55 Feosol PO Not Given DAILYWM MILANA Fluticasone Propionate 1 sprays 06/23/19 23:00 06/24/19 07:56 Flonase RODNEY Not Given DAILY MILANA Insulin Aspart 1 - 9 unit 06/22/19 17:00 06/24/19 12:22 Novolog SUBQ 1 unit 0800,1200,1700,2100 MILANA Administration Protocol Methimazole 10 mg 06/22/19 15:00 06/22/19 15:04 Tapazole PO Not Given MOWEFR MILANA Montelukast Sodium 10 mg 06/22/19 21:00 06/23/19 20:25 Singulair PO 10 mg QPM MILANA Administration Pantoprazole Sodium 40 mg 06/22/19 14:00 06/24/19 08:04 Protonix IVP 40 mg BID MILANA Administration Sodium Chloride 10 ml 06/22/19 13:50 06/23/19 20:25 Normal Saline Flush 0.9% IVP 10 ml PRN PRN Administration NEEDED PER PROVIDER ORDERS Sodium Chloride 10 ml 06/22/19 17:00 06/24/19 08:05 Normal Saline Flush 0.9% IVP 10 ml 0100,0900,1700 MILANA Administration - Lab Result Fish Bone Diagrams: 06/24/19 13:02 06/24/19 04:40 - Additional Planning My Orders: My Active Orders 06/23/19 18:45 Echo Transthoracic Complete [ECHO] Routine 06/23/19 21:00 Cetirizine [ZyrTEC] 10 mg PO QPM 06/24/19 00:01 NPO except Meds at Midnight [DIET] 06/24/19 08:46 hydrALAZINE INJ [Apresoline Inj] 10 mg IVP QID PRN 06/24/19 10:16 RT [Nebulizer/MDI Tx.] [RC] .QID PRN/ Q4 PRN 06/25/19 05:00 BMP - BASIC METABOLIC PANEL [CHEM] DAILYLAB CBC - COMP BLD CT W/AUTO DIFF [HEME] DAILYLAB 06/26/19 05:00 BMP - BASIC METABOLIC PANEL [CHEM] DAILYLAB CBC - COMP BLD CT W/AUTO DIFF [HEME] DAILYLAB Objective Vital Signs: Vital Signs - 24 hr 06/23/19 06/23/19 06/23/19 16:00 17:15 20:31 Temperature 37 C 36.5 C Heart Rate Heart Rate [ Brachial] Heart Rate [ 61 76 72 Radial] Respiratory 18 18 Rate Blood Pressure Blood Pressure 139/52 H 154/81 H 155/68 H [Right Brachial artery] O2 Saturation 99 100 06/23/19 06/24/19 06/24/19 23:46 03:16 07:39 Temperature 36.7 C 36.2 C L 36.7 C Heart Rate Heart Rate [ 77 60 83 Brachial] Heart Rate [ Radial] Respiratory 16 18 19 Rate Blood Pressure Blood Pressure 138/62 H 139/76 H 171/77 H [Right Brachial artery] O2 Saturation 97 99 100 06/24/19 06/24/19 06/24/19 09:40 10:00 10:18 Temperature 36.7 C Heart Rate 78 78 Heart Rate [ 81 Brachial] Heart Rate [ Radial] Respiratory 16 16 Rate Blood Pressure Blood Pressure 142/70 H [Right Brachial artery] O2 Saturation 97 06/24/19 06/24/19 06/24/19 13:58 14:00 14:05 Temperature 36.7 C 36.7 C 36.9 C Heart Rate 68 68 70 Heart Rate [ Brachial] Heart Rate [ Radial] Respiratory 20 17 15 Rate Blood Pressure 129/67 132/69 H 126/68 Blood Pressure [Right Brachial artery] O2 Saturation 100 100 100 06/24/19 06/24/19 06/24/19 14:10 14:15 14:20 Temperature 36.5 C 36.8 C 36.5 C Heart Rate 69 66 67 Heart Rate [ Brachial] Heart Rate [ Radial] Respiratory 15 18 15 Rate Blood Pressure 138/60 H 132/57 H 132/52 H Blood Pressure [Right Brachial artery] O2 Saturation 100 100 100 06/24/19 06/24/19 06/24/19 14:25 14:37 14:57 Temperature 36.8 C 37.0 C Heart Rate 75 Heart Rate [ 74 80 Brachial] Heart Rate [ Radial] Respiratory 20 16 16 Rate Blood Pressure Blood Pressure 159/60 H 133/86 H [Right Brachial artery] O2 Saturation 100 98 Oxygen O2 Source Room air I&O (Last 24 Hrs): Intake and Output Totals x24h 06/22/19 06/23/19 06/24/19 23:59 23:59 23:59 Intake Total 1083.5 2814.75 3420.691 Output Total 1 Balance 1083.5 2813.75 3420.691 - Results Results: Laboratory Results WBC 4.3 x10^3/uL (4.8-10.8) L 06/24/19 04:40 RBC 3.10 10^6/uL (4.20-5.40) L 06/24/19 04:40 Hgb 9.7 g/dL (12.0-16.0) L 06/24/19 13:02 Hct 31.2 % (37.0-47.0) L 06/24/19 13:02 MCV 93.5 fL (81.0-99.0) 06/24/19 04:40 MCH 28.7 pg (27.0-31.0) 06/24/19 04:40 MCHC 30.7 g/dL (32.0-36.0) L 06/24/19 04:40 RDW 17.6 % (12.0-15.0) H 06/24/19 04:40 Plt Count 63 10^3/uL (130-450) L 06/24/19 04:40 MPV 10.0 fL (7.9-10.8) 06/24/19 04:40 Reticulocyte % (Auto) 1.52 % (0.5-2.3) 06/23/19 04:25 Neut # (Auto) 2.7 10^3/uL (1.5-6.6) 06/24/19 04:40 Lymph # (Auto) 1.0 10^3/uL (1.5-3.5) L 06/24/19 04:40 [place]erry # (Auto) 0.6 10^3/uL (0.0-1.0) 06/24/19 04:40 Eos # (Auto) 0.1 10^3/uL (0.0-0.7) 06/24/19 04:40 Baso # (Auto) 0.0 10^3/uL (0.0-0.1) 06/24/19 04:40 Absolute Nucleated RBC 0.00 x10^3/uL 06/24/19 04:40 Nucleated RBC % 0.0 /100WBC 06/24/19 04:40 Absolute Retic 0.048 10^6/uL (0.020-0.110) 06/23/19 04:25 PT 13.3 secs (9.9-12.6) H 06/23/19 16:12 INR 1.2 (0.8-1.2) 06/23/19 16:12 Sodium 143 mmol/L (135-145) 06/24/19 04:40 Potassium 3.7 mmol/L (3.5-5.0) 06/24/19 04:40 Chloride 112 mmol/L (101-111) H 06/24/19 04:40 Carbon Dioxide 23 mmol/L (21-32) 06/24/19 04:40 Anion Gap 8.0 (6-13) 06/24/19 04:40 BUN 19 mg/dL (6-20) 06/24/19 04:40 Creatinine 1.0 mg/dL (0.4-1.0) 06/24/19 04:40 Estimated GFR (MDRD) 52 (>89) L 06/24/19 04:40 Glucose 137 mg/dL (70-100) H 06/24/19 04:40 POC Whole Bld Glucose 152 mg/dL (70 - 100) H 06/24/19 11:57 Glycated Hemoglobin 6.4 % (4.6-6.2) H 06/22/19 11:25 Estim Average Glucose 137 (70-100) H 06/22/19 11:25 Calcium 9.4 mg/dL (8.5-10.3) 06/24/19 04:40 Magnesium 1.8 mg/dL (1.7-2.8) 06/23/19 04:25 Iron 30 ug/dL (28-170) 06/23/19 04:25 TIBC 322 ug/dL (250-450) 06/23/19 04:25 % Saturation 9 % (20-50) L 06/23/19 04:25 Transferrin 230 mg/dL (192-382) 06/23/19 04:25 Ferritin 89.1 ng/mL (11.0-306.8) 06/23/19 04:25 Total Bilirubin 0.5 mg/dL (0.2-1.0) 06/22/19 11:25 AST 25 IU/L (10-42) 06/22/19 11:25 ALT 14 IU/L (10-60) 06/22/19 11:25 Alkaline Phosphatase 75 IU/L (42-121) 06/22/19 11:25 Lactate Dehydrogenase 141 IU/L (91-225) 06/23/19 11:43 Troponin I High Sens 5.4 ng/L (2.3-14.8) 06/22/19 16:20 Total Protein 8.3 g/dL (6.7-8.2) H 06/22/19 11:25 Albumin 4.2 g/dL (3.2-5.5) 06/22/19 11:25 Globulin 4.1 g/dL (2.1-4.2) 06/22/19 11:25 Albumin/Globulin Ratio 1.0 (1.0-2.2) 06/22/19 11:25 Lipase 47 U/L (22-51) 06/22/19 11:25 Vitamin B12 638 pg/mL (180-914) 06/23/19 04:25 Blood Type B POSITIVE 06/22/19 11:25 Antibody Screen NEGATIVE 06/22/19 11:25 - Procedures Procedures: Procedures REVISION OF SYNTH SUB IN R HIP JT, FEMORAL, ALLEY TENDER APPROACH (10/31/16) Sepsis Event Note (H) - Evaluation Current Stage of Sepsis: Ruled out ABX Reporting Has patient been on IV antibiotics over the past 48 hours?: No
--- NOTE | 2019-06-24 16:38 | PROVIDER PROGRESS NOTE ---
Subjective - Prog Note Date Prog Note Date: 06/24/19 - Subjective Subjective: pt is very confused, she is trying to climb out of the bed. Surgeon Dr. Lyn did both EGD and colonoscopy for pt at this afternoon. surgeon called me pt's EGD is unremarkable. her colonoscopy did not reveals acute bleed site, but found pt has ischemic colitis, and has likely a mass and tumor in which he did the Biopsy for pt. I met pt's in pt's bedside. I reported the above scope finding for him. pt's friend help pt's to understand. pt's let his friend to participate the conversation, so pt's did understand what was found in the colonoscopy. Advise pt's wait for biopsy result at this time. state her daughter from [place] might come to hospital on tonight or tomorrow morning. Current Medications - Current Medications Current Medications: Active Medications Acetaminophen (Tylenol) 650 mg PO Q4HR PRN PRN Reason: Pain 1 to 4 Albuterol () 2.5 mg INH RTQ4H PRN PRN Reason: Wheezing Albuterol/Ipratropium (Duoneb) 3 ml INH RTQID PRN PRN Reason: Shortness of Air/Wheezing Alprazolam (Xanax) 0.25 mg PO DAILY PRN PRN Reason: Anxiety Last Admin: 06/22/19 20:21 Dose: 0.25 mg Carvedilol (Coreg) 25 mg PO BIDWM [facility] Last Admin: 06/24/19 07:53 Dose: 25 mg Cetirizine HCl (Zyrtec) 10 mg PO QPM [facility] Last Admin: 06/23/19 20:25 Dose: 10 mg Diltiazem HCl (Cardizem Cd) 120 mg PO BID [facility] Last Admin: 06/24/19 07:54 Dose: 120 mg Ferrous Sulfate (Feosol) 325 mg PO DAILYWM [facility] Last Admin: 06/24/19 08:55 Dose: Not Given Fluticasone Propionate (Flonase) 1 sprays RODNEY DAILY [facility] Last Admin: 06/24/19 07:56 Dose: Not Given Hydralazine HCl (Apresoline Inj) 10 mg IVP QID PRN PRN Reason: Hypertensive Emergency Insulin Aspart (Novolog) 1 - 9 unit SUBQ 0800,1200,1700,2100 [facility]; Protocol Last Admin: 06/24/19 12:22 Dose: 1 unit Methimazole (Tapazole) 10 mg PO MOWEFR [facility] Last Admin: 06/22/19 15:04 Dose: Not Given Montelukast Sodium (Singulair) 10 mg PO QPM [facility] Last Admin: 06/23/19 20:25 Dose: 10 mg Ondansetron HCl (Zofran Inj) 4 mg IVP Q6HR PRN PRN Reason: Nausea / Vomiting Pantoprazole Sodium (Protonix) 40 mg IVP BID [facility] Last Admin: 06/24/19 08:04 Dose: 40 mg Sodium Chloride (Normal Saline Flush 0.9%) 10 ml IVP PRN PRN PRN Reason: NEEDED PER PROVIDER ORDERS Last Admin: 06/23/19 20:25 Dose: 10 ml Sodium Chloride (Normal Saline Flush 0.9%) 10 ml IVP 0100,0900,1700 [facility] Last Admin: 06/24/19 08:05 Dose: 10 ml Zolpidem Tartrate (Ambien) 5 mg PO QPM PRN PRN Reason: Insomnia Furosemide 20 mg PO DAILY 09/24/13 Pantoprazole Sodium [Protonix] 40 mg PO DAILY 09/24/13 metFORMIN [Glucophage] 500 mg PO BIDWM 09/24/13 methIMAzole [Methimazole] 10 mg PO MOWEFR 09/24/13 Albuterol Sulfate [Proair Respiclick] 90 mcg IH Q4HR PRN 07/13/15 Diclofenac Sodium [Voltaren] 2 - 4 gm TP DAILY 07/13/15 Minoxidil [Hair Regrowth Treatment] 0 gm TP BID 07/13/15 ALPRAZolam [Alprazolam] 0.25 mg PO DAILY PRN 08/10/17 Niacin [Niaspan] 500 mg PO DAILY 08/10/17 Cholecalciferol (Vitamin D3) [Vitamin D3] 2,000 unit PO DAILY 09/10/17 Cetirizine [ZyrTEC] 10 mg PO DAILY 09/11/17 Ipratropium Gilbert 2 sprays RODNEY Q8H PRN 09/11/17 Montelukast [Singulair] 10 mg PO QPM 09/11/17 Rivaroxaban [Xarelto] 15 mg PO QDDINNER 09/11/17 diltiaZEM [Cardizem] 120 mg PO BID 11/23/18 Objective - Vital Signs/Intake & Output Reviewed Vital Signs: Yes Vital Signs: Vital Signs x48h Temp Pulse Pulse Resp BP BP Pulse Ox 06/24/19 16:07 36.6 C 71 16 174/60 H 99 06/24/19 14:57 80 16 133/86 H 06/24/19 14:37 37.0 C 74 16 159/60 H 98 06/24/19 14:25 36.8 C 75 20 100 06/24/19 14:20 36.5 C 67 15 132/52 H 100 06/24/19 14:15 36.8 C 66 18 132/57 H 100 06/24/19 14:10 36.5 C 69 15 138/60 H 100 06/24/19 14:05 36.9 C 70 15 126/68 100 06/24/19 14:00 36.7 C 68 17 132/69 H 100 06/24/19 13:58 36.7 C 68 20 129/67 100 06/24/19 10:18 36.7 C 78 16 97 06/24/19 10:00 78 16 06/24/19 09:40 81 142/70 H Intake & Output: Intake & Output 06/21/19 06/22/19 06/23/19 06/24/19 23:59 23:59 23:59 23:59 Intake Total 1083.5 2814.75 3420.691 Output Total 1 150 Balance 1083.5 2813.75 3270.691 - Objective General Appearance: positive: Alert, Anxious. negative: Lethargic Eyes Bilateral: positive: Normal inspection, PERRL, No lid inflammation ENT: positive: ENT inspection nml, Pharynx nml, No signs of dehydration. negative: Purulent nasal drainage Neck: positive: Nml inspection, Thyroid nml, No JVD, Trachea midline. negative: Thyromegaly, Lymphadenopathy (R), Lymphadenopathy (L), Stiff neck, Tracheal deviation Respiratory: positive: Chest non-tender, No respiratory distress, Breath sounds nml. negative: Wheezes, Rales, Rhonchi Cardiovascular: positive: No murmur, No gallop, Irregularly irregular. negative: Regular rate & rhythm, Extrasystoles, Tachycardia, Bradycardia, JVD present, Systolic murmur, Diastolic murmur Peripheral Pulses: 2+ Radial (R), 2+ Radial (L), 2+ Dorsalis pedis (R), 2+ Dorsalis pedis (L) Abdomen: positive: Non-tender, No organomegaly, Nml bowel sounds, No distention. negative: Tenderness, Guarding, Rebound Back: positive: Nml inspection. negative: CVA tenderness (R), CVA tenderness (L) Skin: positive: Color nml, No rash, Warm, Dry. negative: Cyanosis, Diaphoresis, Pallor Extremities: positive: Non-tender, Full ROM, Nml appearance. negative: Calf tenderness, Daniel's sign/cords Neurologic/Psychiatric: positive: Motor nml, Sensation nml. negative: Weakness, Sensory loss, Facial droop, Slurred/abnml speech, Depressed mood/affect - Lab Results Fish Bones: 06/24/19 13:02 06/24/19 04:40 Other Labs: Lab Results x24hrs 06/24/19 06/24/19 06/24/19 Range/Units 13:02 11:57 07:44 WBC (4.8-10.8) x10^3/uL RBC (4.20-5.40) 10^6/uL Hgb 9.7 L (12.0-16.0) g/dL Hct 31.2 L (37.0-47.0) % MCV (81.0-99.0) fL MCH (27.0-31.0) pg MCHC (32.0-36.0) g/dL RDW (12.0-15.0) % Plt Count (130-450) 10^3/uL MPV (7.9-10.8) fL Neut # (Auto) (1.5-6.6) 10^3/uL Lymph # (Auto) (1.5-3.5) 10^3/uL Stephenson # (Auto) (0.0-1.0) 10^3/uL Eos # (Auto) (0.0-0.7) 10^3/uL Baso # (Auto) (0.0-0.1) 10^3/uL Absolute Nucleated RBC x10^3/uL Nucleated RBC % /100WBC Sodium (135-145) mmol/L Potassium (3.5-5.0) mmol/L Chloride (101-111) mmol/L Carbon Dioxide (21-32) mmol/L Anion Gap (6-13) BUN (6-20) mg/dL Creatinine (0.4-1.0) mg/dL Estimated GFR (MDRD) (>89) Glucose (70-100) mg/dL POC Whole Bld Glucose 152 H 130 H (70 - 100) mg/dL Calcium (8.5-10.3) mg/dL 06/24/19 06/24/19 06/23/19 Range/Units 04:40 04:40 20:19 WBC 4.3 L (4.8-10.8) x10^3/uL RBC 3.10 L (4.20-5.40) 10^6/uL Hgb 8.9 L (12.0-16.0) g/dL Hct 29.0 L (37.0-47.0) % MCV 93.5 (81.0-99.0) fL MCH 28.7 (27.0-31.0) pg MCHC 30.7 L (32.0-36.0) g/dL RDW 17.6 H (12.0-15.0) % Plt Count 63 L (130-450) 10^3/uL MPV 10.0 (7.9-10.8) fL Neut # (Auto) 2.7 (1.5-6.6) 10^3/uL Lymph # (Auto) 1.0 L (1.5-3.5) 10^3/uL Stephenson # (Auto) 0.6 (0.0-1.0) 10^3/uL Eos # (Auto) 0.1 (0.0-0.7) 10^3/uL Baso # (Auto) 0.0 (0.0-0.1) 10^3/uL Absolute Nucleated RBC 0.00 x10^3/uL Nucleated RBC % 0.0 /100WBC Sodium 143 (135-145) mmol/L Potassium 3.7 (3.5-5.0) mmol/L Chloride 112 H (101-111) mmol/L Carbon Dioxide 23 (21-32) mmol/L Anion Gap 8.0 (6-13) BUN 19 (6-20) mg/dL Creatinine 1.0 (0.4-1.0) mg/dL Estimated GFR (MDRD) 52 L (>89) Glucose 137 H (70-100) mg/dL POC Whole Bld Glucose 111 H (70 - 100) mg/dL Calcium 9.4 (8.5-10.3) mg/dL 06/23/19 Range/Units 16:35 WBC (4.8-10.8) x10^3/uL RBC (4.20-5.40) 10^6/uL Hgb (12.0-16.0) g/dL Hct (37.0-47.0) % MCV (81.0-99.0) fL MCH (27.0-31.0) pg MCHC (32.0-36.0) g/dL RDW (12.0-15.0) % Plt Count (130-450) 10^3/uL MPV (7.9-10.8) fL Neut # (Auto) (1.5-6.6) 10^3/uL Lymph # (Auto) (1.5-3.5) 10^3/uL Stephenson # (Auto) (0.0-1.0) 10^3/uL Eos # (Auto) (0.0-0.7) 10^3/uL Baso # (Auto) (0.0-0.1) 10^3/uL Absolute Nucleated RBC x10^3/uL Nucleated RBC % /100WBC Sodium (135-145) mmol/L Potassium (3.5-5.0) mmol/L Chloride (101-111) mmol/L Carbon Dioxide (21-32) mmol/L Anion Gap (6-13) BUN (6-20) mg/dL Creatinine (0.4-1.0) mg/dL Estimated GFR (MDRD) (>89) Glucose (70-100) mg/dL POC Whole Bld Glucose 154 H (70 - 100) mg/dL Calcium (8.5-10.3) mg/dL ABX Reporting Has patient been on IV antibiotics over the past 48 hours?: No Sepsis Event Note (H) - Evaluation Current Stage of Sepsis: Ruled out Assessment/Plan - Problem List (1) GI bleeding Impression: 06/24 pt report pt had one bowel movement on today morning, there was no blood in the stool. she denies any abdominal pain, nausea or vomiting or diarrhea. pt's HGB is stable, now it is 9.7. pt had EGD and colonoscopy today afternoon. Discussed the finding per surgeon's phone call to pt's . pt's daughter might come to hospital from [facility] or tomorrow morning. start carbo control diet, continue hold Xarelto now lab monitor 06/23 pt still has maroon stool today morning. HGB is down to 9.5 from 10.9 surgeon will plan to do EGD and colonoscopy tomorrow NPO after midnight. IVF after midnight bowel prepare [facility] pt had total four maroon stool on today morning including one at hospital ER. pt's HGB is stable as far. pt report she had hx of chronic anemia. pt took Xarelto for her Afib until last night. GI surgeon was called for scope for pt H&H to monitor pt hold Xarelto NPO after midnight IVF of NS (2)confused The acute confused is likely caused by anesthesia, pt just had EGD/colonoscopy. pt does not present any focal neurological deficit neuro check (3) Atrial fibrillation Conclusion/Plan: pt's HR is stable, pt denies palpitation, chest pain. reconcile home meds: coreg, cardizem. hold Xarelto for GI bleed tele and vital monitor (4) Type 2 diabetes mellitus Conclusion/Plan: pt took metformin at home we start slide scale, ACHS, hypoglycemia protocol check A1C and hold Metformin now (5)acute kidney injury Conclusion/Plan: 06/23 significantly improved. creatinine is 1.1 now from 1.7 at the admission continue hydration gently, hold nephrological agents continue lab monitor pt has elevated creatinine, and clinically pt present dry mouth, dehydration IVF of NS gently lab monitor (6) Anxiety Conclusion/Plan: stable, pt has Xanax at home, reconcile it (7) History of COPD Conclusion/Plan: pt has no respiratory distress now. reconcile home meds, breath treatment PRN (8) HTN (hypertension) Conclusion/Plan: stable, reconcile home BP meds, continue vital monitor (9)combined systolic and diastolic heart failure 06/23 ECHO reveals pt has 40-45% and severe right heart abnormal pressure, RVSP 89mmhg which was better then previous ECHO study. continue home meds Coreg and cardizem for HR control, precaution of IVF. IVF start after pt is on NPO continue tele and vital monitor Qualifiers: GI bleed type/associated pathology: unspecified gastrointestinal hemorrhage type Qualified Code(s): K92.2 - Gastrointestinal hemorrhage, unspecified (2) Atrial fibrillation Qualifiers: Atrial fibrillation type: chronic (3) Type 2 diabetes mellitus Qualifiers: Diabetes mellitus complication status: without complication
[2019-06-24] MEDS: methIMAzole 5 MG TABLET PO SCH (17:41)
[2019-06-24] MEDS: CETIRIZINE 10 MG TABLET PO SCH (20:43)
[2019-06-24] MEDS: MONTELUKAST 10 MG TABLET PO SCH (20:44)
[2019-06-25] MEDS: SODIUM CHLORIDE FLUSH 0.9% 10 ML SYRINGE IVP SCH ×3 (00:39→17:00)
--- NOTE | 2019-06-25 07:55 | PROVIDER PROGRESS NOTE ---
Subjective - Prog Note Date Prog Note Date: 06/25/19 Prog Note Time: 16:10 - Subjective Subjective: It has been a difficult day for her. Starting this morning she began having delirium where she was convinced that the nurses were poisoning her. She is co nvinced that her and daughter are in a contract with the mysterious group of people that are also trying to kill her. She feels this is happening because her food and water tastes bad. Even when her gives her water from the tap it tastes bad so she thinks that he is putting something in the water before he gives it to her. She is very angry. She does not want to be here. It took social work, , a good friend and neighbor who is a nurse, and the daughter to call this patient down. She is also still having bloody diarrhea. She had this overnight into the packing tractor machine operator hours. She claims that we are holding her against her will and that she did not have bloody diarrhea. During the day she did have one more scant bowel movement of blood. She denies abdominal pain. Food taste bad. She is afebrile. Blood pressure is stable in the 140s to the 150s. General surgery has seen her. Her preliminary findings of her colonoscopy is that of ischemic bowel as well as a colon mass. She is she is still continuing to have bloody diarrhea, they do not feel that this patient is a candidate for further surgical intervention at this facility. Her echocardiogram shows an ejection fraction of 40 to 45% with mitral regurgitation and right heart failure. Initially the family requested transfer to [facility] but [facility] feels that they do not have specialty care to monitor her there as well. Especially if she ends up needing surgery. As such family asked that she be transferred to [facility] where her assembly mechanic is, Dr. Kilpatrick. Current Medications - Current Medications Current Medications: Active Medications Acetaminophen (Tylenol) 650 mg PO Q4HR PRN PRN Reason: Pain 1 to 4 Albuterol () 2.5 mg INH RTQ4H PRN PRN Reason: Wheezing Albuterol/Ipratropium (Duoneb) 3 ml INH RTQID PRN PRN Reason: Shortness of Air/Wheezing Alprazolam (Xanax) 0.25 mg PO DAILY PRN PRN Reason: Anxiety Last Admin: 06/22/19 20:21 Dose: 0.25 mg Carvedilol (Coreg) 25 mg PO BIDWM [facility] Last Admin: 06/24/19 17:41 Dose: Not Given Cetirizine HCl (Zyrtec) 10 mg PO QPM [facility] Last Admin: 06/24/19 20:43 Dose: Not Given Diltiazem HCl (Cardizem Cd) 120 mg PO BID [facility] Last Admin: 06/24/19 20:43 Dose: Not Given Ferrous Sulfate (Feosol) 325 mg PO DAILYWM [facility] Last Admin: 06/24/19 08:55 Dose: Not Given Fluticasone Propionate (Flonase) 1 sprays RODNEY DAILY [facility] Last Admin: 06/24/19 07:56 Dose: Not Given Hydralazine HCl (Apresoline Inj) 10 mg IVP QID PRN PRN Reason: Hypertensive Emergency Insulin Aspart (Novolog) 1 - 9 unit SUBQ 0800,1200,1700,2100 [facility]; Protocol Last Admin: 06/24/19 20:44 Dose: Not Given Methimazole (Tapazole) 10 mg PO MOWEFR [facility] Last Admin: 06/24/19 17:41 Dose: Not Given Montelukast Sodium (Singulair) 10 mg PO QPM [facility] Last Admin: 06/24/19 20:44 Dose: Not Given Ondansetron HCl (Zofran Inj) 4 mg IVP Q6HR PRN PRN Reason: Nausea / Vomiting Pantoprazole Sodium (Protonix) 40 mg IVP DAILY [facility] Sodium Chloride (Normal Saline Flush 0.9%) 10 ml IVP PRN PRN PRN Reason: NEEDED PER PROVIDER ORDERS Last Admin: 06/23/19 20:25 Dose: 10 ml Sodium Chloride (Normal Saline Flush 0.9%) 10 ml IVP 0100,0900,1700 [facility] Last Admin: 06/25/19 00:39 Dose: Not Given Zolpidem Tartrate (Ambien) 5 mg PO QPM PRN PRN Reason: Insomnia Furosemide 20 mg PO DAILY 09/24/13 Pantoprazole Sodium [Protonix] 40 mg PO DAILY 09/24/13 metFORMIN [Glucophage] 500 mg PO BIDWM 09/24/13 methIMAzole [Methimazole] 10 mg PO MOWEFR 09/24/13 Albuterol Sulfate [Proair Respiclick] 90 mcg IH Q4HR PRN 07/13/15 Diclofenac Sodium [Voltaren] 2 - 4 gm TP DAILY 07/13/15 Minoxidil [Hair Regrowth Treatment] 0 gm TP BID 07/13/15 ALPRAZolam [Alprazolam] 0.25 mg PO DAILY PRN 08/10/17 Niacin [Niaspan] 500 mg PO DAILY 08/10/17 Cholecalciferol (Vitamin D3) [Vitamin D3] 2,000 unit PO DAILY 09/10/17 Cetirizine [ZyrTEC] 10 mg PO DAILY 09/11/17 Ipratropium Griffin 2 sprays RODNEY Q8H PRN 09/11/17 Montelukast [Singulair] 10 mg PO QPM 09/11/17 Rivaroxaban [Xarelto] 15 mg PO QDDINNER 09/11/17 diltiaZEM [Cardizem] 120 mg PO BID 11/23/18 Objective - Vital Signs/Intake & Output Reviewed Vital Signs: Yes Vital Signs: Vital Signs x48h Temp Pulse Resp BP Pulse Ox 06/25/19 00:58 37.2 C 83 16 157/85 H 97 Intake & Output: Intake & Output 06/22/19 06/23/19 06/24/19 06/25/19 23:59 23:59 23:59 23:59 Intake Total 1083.5 2814.75 3420.691 Output Total 1 150 100 Balance 1083.5 2813.75 3270.691 -100 - Objective General Appearance: positive: Alert, Other (5 foot tall elderly female who weighs 59.5 kg.Sitting upright in her chair, wrapped in blankets, fast pressured speech because she is angry but can calm down to speak to and daughter.) Eyes Bilateral: positive: PERRL, EOMI ENT: positive: Pharynx nml Neck: positive: No JVD Respiratory: positive: Chest non-tender, No respiratory distress. negative: Wheezes, Rales, Rhonchi Cardiovascular: positive: Regular rate & rhythm, Systolic murmur, Diastolic murmur. negative: Gallop/S4, Friction rub Abdomen: positive: No organomegaly, Nml bowel sounds, No distention, Tenderness (Mild and diffuse. Not severe at all. She is tolerating oral intake in the form of protein bars when coaxed to eat by physical therapy). negative: Guarding, Rebound Skin: positive: Warm, Dry Extremities: positive: Non-tender, Full ROM, No pedal edema Neurologic/Psychiatric: positive: CN's nml (2-12), Motor nml. negative: Mood/affect nml (Paranoid. Not hallucinating. No she is in the hospital but denies that she is having any rectal bleeding. She knows that is June. She knows that she is talking to her daughter and her . Intially she states that they also have their own plot to poison and kill her, then she calms down and lets them feed her and comfort her.) - Lab Results Fish Bones: 06/24/19 13:02 06/24/19 04:40 Other Labs: Lab Results x24hrs 06/24/19 06/24/19 06/24/19 Range/Units 20:33 16:29 13:02 Hgb 9.7 L (12.0-16.0) g/dL Hct 31.2 L (37.0-47.0) % POC Whole Bld Glucose 124 H 119 H (70 - 100) mg/dL 06/24/19 Range/Units 11:57 Hgb (12.0-16.0) g/dL Hct (37.0-47.0) % POC Whole Bld Glucose 152 H (70 - 100) mg/dL ABX Reporting Has patient been on IV antibiotics over the past 48 hours?: No Sepsis Event Note (H) - Evaluation Current Stage of Sepsis: Ruled out Assessment/Plan - Problem List (1) Ischemic bowel disease Impression: An elderly female who presented with blood in her stool 3 times on the day of admission and another maroon stool in the emergency room. Hemoglobin on admission is 10.9. She had another bloody bowel movement June 23 and . EGD and colonoscopy done June 24 showing a negative EGD, changes of ischemic colitis on her colonoscopy, and a colonic mass. Pathology is pending. She has had another bloody bowel movement this morning. No fever, no abdominal pain.As such, even though general surgery feels that she may have ischemic colitis, she has no abdominal pain, no fever, no elevated white cell count. She does not meet the clinical scenario of someone with ischemic bowel on physical exam. Plan: Continue to hold Xarelto that is being used for her A. fib. Continue to monitor hemoglobin Discussed with general surgery about what the overall plans are. General surgery does not feel this patient is a candidate for any surgical intervention at our institution. We need a higher level of care especially with specialty care. If this patient is going to remain in the hospital they recommend transfer. Her overall prognosis for surgery is poor and that she is 89 years old, and has ejection fraction that is diminished. She also has mild to moderate cognitive deficits. I will contact [facility]. (2)cogntitive deficit of aging with hospital delirium using verbal prompting. (3) Atrial fibrillation Conclusion/Plan: pt's HR is stable, pt denies palpitation, chest pain. reconcile home meds: coreg, cardizem resumed even though cardizem is contraindicated in reduced EF. Needed for rate control. hold Xarelto for GI bleed tele and vital monitor (4) Type 2 diabetes mellitus Conclusion/Plan: pt took metformin at home. Her A1c is 6.4%. On sliding scale, ACHS, hypoglycemia protocol I would not recommend metformin to be resumed when she leaves the hospital (5)acute kidney injury superimposed on chronic kidney disease stage III Conclusion/Plan: creatinine 1.7> 1.1>1.0 improving on IVF (6) Delirium and Anxiety Conclusion/Plan: stable, pt has Xanax at home, reconcile it Add risperal po (7) History of COPD Conclusion/Plan: pt has no respiratory distress now. reconcile home meds, breath treatment PRN (8) HTN (hypertension) Conclusion/Plan: stable, reconcile home BP meds, continue to monitor (9)combined systolic and diastolic heart failure 12/ ECHO reveals pt has 40-45% and severe right heart abnormal pressure, RVSP 89mmhg which was better then previous ECHO study. continue home meds Coreg and cardizem for HR control, precaution of IVF. IVF start after pt is on NPO continue tele and vital monitor
[2019-06-25] MEDS: FERROUS SULFATE 325 MG TABLET PO SCH (08:18)
[2019-06-25] MEDS: carvediloL 12.5 MG TABLET PO SCH ×2 (08:18→17:00)
[2019-06-25] MEDS: diltiaZEM CD 120 MG CAPSULE PO SCH (08:18)
[2019-06-25] MEDS: INSULIN ASPART 300 UNIT/3 ML PEN SUBQ SCH ×3 (08:19→17:01)
[2019-06-25] MEDS ORDERED: PANTOPRAZOLE 40 MG VIAL IVP SCH (09:00)
--- NOTE | 2019-06-25 10:46 | PROVIDER PROGRESS NOTE ---
Subjective - General Admit Date: 06/24/19 Procedure Date: 06/24/19 Post Op Days: 1 Procedure Performed: EGD and Colonoscopy Objective - Patient Data Reviewed Vital Signs: Yes Vital Signs: Vital Signs x48h Pulse Pulse BP 06/25/19 08:17 96 173/106 H 06/25/19 08:16 117 H 184/125 H Intake & Output: Intake and Output Totals x24h 06/23/19 06/24/19 06/25/19 23:59 23:59 23:59 Intake Total 2814.75 3420.691 180 Output Total 1 150 100 Balance 2813.75 3270.691 80 - Lab Results Lab Results: 06/24/19 13:02 06/24/19 04:40 Other Lab Results: Lab Results x24hrs 06/25/19 06/24/19 06/24/19 Range/Units 08:03 20:33 16:29 Hgb (12.0-16.0) g/dL Hct (37.0-47.0) % POC Whole Bld Glucose 118 H 124 H 119 H (70 - 100) mg/dL 06/24/19 06/24/19 Range/Units 13:02 11:57 Hgb 9.7 L (12.0-16.0) g/dL Hct 31.2 L (37.0-47.0) % POC Whole Bld Glucose 152 H (70 - 100) mg/dL - Current Medications Current Medications: Current Medications Generic Name Dose Route Start Last Admin Trade Name Freq PRN Reason Stop Dose Admin Alprazolam 0.25 mg 06/22/19 14:05 06/22/19 20:21 Xanax PO 0.25 mg DAILY PRN Administration Anxiety Carvedilol 25 mg 06/22/19 17:00 06/25/19 08:18 Coreg PO 25 mg BIDWM [facility] Administration Cetirizine HCl 10 mg 06/23/19 21:00 06/24/19 20:43 Zyrtec PO Not Given QPM [facility] Diltiazem HCl 120 mg 06/22/19 21:00 06/25/19 08:18 Cardizem Cd PO 120 mg BID [facility] Administration Ferrous Sulfate 325 mg 06/23/19 13:00 06/25/19 08:18 Feosol PO 325 mg DAILYWM [facility] Administration Fluticasone Propionate 1 sprays 06/23/19 23:00 06/24/19 07:56 Flonase RODNEY Not Given DAILY [facility] Insulin Aspart 1 - 9 unit 06/22/19 17:00 06/25/19 08:19 Novolog SUBQ Not Given 0800,1200,1700,2100 [facility] Protocol Methimazole 10 mg 06/22/19 15:00 06/24/19 17:41 Tapazole PO Not Given MOWEFR [facility] Montelukast Sodium 10 mg 06/22/19 21:00 06/24/19 20:44 Singulair PO Not Given QPM [facility] Pantoprazole Sodium 40 mg 06/25/19 09:00 06/25/19 08:18 Protonix IVP 40 mg DAILY [facility] Administration Sodium Chloride 10 ml 06/22/19 13:50 06/23/19 20:25 Normal Saline Flush 0.9% IVP 10 ml PRN PRN Administration NEEDED PER PROVIDER ORDERS Sodium Chloride 10 ml 06/22/19 17:00 06/25/19 08:18 Normal Saline Flush 0.9% IVP 10 ml 0100,0900,1700 [facility] Administration - Physical Exam General Appearance: positive: No acute distress, Anxious Eyes Bilateral: positive: Normal inspection, PERRL ENT: positive: ENT inspection nml Neck: positive: Nml inspection. negative: Swelling/bruising Respiratory: positive: No respiratory distress Abdomen: positive: Non-tender, Nml bowel sounds, No distention. negative: Guarding, Rebound Impression/Plan - Problem List Problem List: Unfortunate and somewhat confused elderly lady with ischemic colitis and a bowel mass in the setting of significant cardiac disease. She says she wants to go home and watch the [employer] game on television. Her prognosis is extremely poor at this time. Should she and her family change their mind regarding surgical intervention, she is not a candidate for intervention at this facility. Agree with all excellent care by the Hospitalist service.
[2019-06-25] MEDS: FLUTICASONE NASAL SPRAY NAS SCH (14:46)
[2019-06-25] MEDS: ALPRAZolam 0.25 MG TABLET PO PRN (17:00)
--- NOTE | 2019-06-25 17:59 | DISCHARGE SUMMARY ---
"Discharge Summary Discharge Date: 06/25/19 Code Status: Do Not Attempt Resuscitation Condition at Discharge: Fair Discharge Disposition: 02 Transfer Acute Care Hosp - DIAGNOSES Discharge Diagnoses with Status of Each Condition: 1. Hematochezia 2. Colon mass on colonoscopy 3. Delirium 4. Chronic atrial fibrillation 5. Type 2 diabetes mellitus, controlled, without complications, not on long- term use of insulin 6. Dehydration resolved 7. Anxiety disorder 8. History of COPD 9. Hypertension 10. Chronic combined systolic and diastolic heart failure 11. Tricuspid regurgitation 12. Chronic right-sided congestive heart failure - HPI History of Present Illness: Ms. Waddell is a 89-yrs-old female with a PMH significant for HTN, chronic anemia, Afib with Xarelto, DM2, anxiety, COPD, asthma, who present ER complain of GI bleeding. pt report she had three times blood in stool in this am at her home. She reports she's had 3 loose BMs this am with bright red blood in the toilet and on paper. she had one maroon stool in ER. She denies syncope, dizziness, lightheaded, chest pain, shortness of breath. She denies abdominal pain, nausea, vomiting or diarrhea, dysuria, hemtauria, headache, vision, focal neurological deficits. she report she had one colonoscopy about twenty years ago which was benign as she remembered. she report she took Xaralto for A-fib. The last dose was on the last night. Her HGB is 10.9 today. Otherwise, she is hemodynamic stable. GI surgeon was called by ER provider. pt is admitted for GI bleed. History - Past Medical History Cardiovascular: reports: Hypertension, High cholesterol, Atrial fibrillation Respiratory: reports: Other Neuro: reports: None Endocrine/Autoimmune: reports: Type 2 diabetes GI: reports: Diverticulitis CURRICULUM DEVELOPMENT SPECIALIST: reports: None : reports: None HEENT: reports: Chronic vision loss, Chronic hearing loss Psych: reports: Anxiety Musculoskeletal: reports: Osteoarthritis Derm: reports: Eczema - CONSULTS | PROCEDURES Consultations: General surgery, Dr. Lyn and Dr. Wilde Procedures: 1. Echocardiogram this is a preliminary report. Final pending. Compared to March 2018 echo which had an ejection fraction of 35 to 40%, global hypokinesis, moderate right ventricular enlargement, right ventricular systolic pressure 118 mmHg, severe tricuspid regurgitation, there is now atrial fibrillation, ejection fraction 40 to 45%, moderate right ventricular enlargement, right ventricular systolic function mildly impaired, severe increased left atrial volume index, severe right atrial enlargement, right ventricular systolic pressure 89 mmHg, moderate tricuspid regurgitation. 2. EGD and colonoscopy. Reports are not available in the electronic medical record. Surgeon gave us a verbal report and written reports are not dictated yet. EGD is negative. Colon mucosa was signs of ischemic colitis, and there is a bowel mass with biopsies pending. - HOSPITAL COURSE Hospital Course: The patient was placed in the hospital for follow-up of her lower GI hematochezia. She continued to have maroon stools the day after admission. Hemoglobin on admission was 10.9. In the lower she drifted to was 8.9. She did not require transfusion. Hemoglobin on the day of discharge was 9.7. The day before colonoscopy she did not have any more stools, but the day after colonoscopy had more maroon stools overnight. By this time, on-call surgeon was Dr. Wilde. When alerted about continued GI bleed, she was worried that the patient may need surgical intervention. However this patient is not a candidate for surgical intervention at our hospital because of limited specialty services. By this time, the patient was also experiencing delirium. She was convinced that her and daughter were trying to kill her. She was also convinced that we were trying to poison her, specifically the nurses. When I asked how she knew this she explained that the water and food tasted if there was poison in it. She was refusing to eat. She finally allowed physical therapist, Michael Fisher, to give her a protein bar, and a cup of water from the water faucet if she could watch him for the water. She was weak, debilitated. Demanding to go home. Daughter and could not calm her down. They initially asked if we could transfer her to [place] at her request. But [facility] declined. She then asked if we could transfer her to [facility] since her patternmaker apprentice wood, Dr. Kilpatrick was there. I spoke to the hospitalist electrician front and surgeon on-call and they accepted the patient in transfer. During her stay diabetes was controlled. She was usually 109, 111, 119. The highest she went to was 158 on the day of discharge. She was controlled with sliding scale insulin. She was eating anywhere from 25 to 50% of her food if we could coax her into it. Atrial fibrillation remained stable and that it was rate controlled. We could not anticoagulate her. COPD was without exacerbation. She has a history of combined systolic and diastolic heart failure and right-sided heart failure with pulmonary hypertension. That also remained stable as well. She is transferred in stable condition to Psychiatric. Temperature is 37, pulse 88 and irregular, blood pressure 149/54, respirations 24 and 98% on room air. She knows that she is at [facility] but does not know the date. She recognizes her and daughter and initially does not want to have anything to do with him because are trying to kill her. She then calms down and speaks to them. Neck is supple, lungs are clear, she has an irregularly irregular rate with both a diastolic and systolic murmur. Abdomen is soft, hypoactive bowel sounds, nontender. If she has ischemic colitis she does not have a fever, white cell count, or tender abdomen. Extremities are thin. Greater than 30 minutes was spent coordinating discharge. - ALLERGIES Allergies/Adverse Reactions: Allergies Allergy/AdvReac Type Severity Reaction Status Date / Time SEGUNDO Inhibitors Allergy Unknown Verified 06/22/19 10:35 amoxicillin Allergy Unknown Verified 06/22/19 10:35 codeine Allergy hyperactivi Verified 06/22/19 10:35 ty Penicillins Allergy Rash Verified 06/22/19 10:35 - MEDICATIONS Home Medications: Ambulatory Orders Medication Instructions Recorded Confirmed RX: Furosemide 20 mg PO DAILY 09/24/13 06/22/19 RX: Pantoprazole Sodium [Protonix] 40 mg PO DAILY 09/24/13 06/22/19 RX: metFORMIN [Glucophage] 500 mg PO BIDWM 09/24/13 06/22/19 RX: methIMAzole [Methimazole] 10 mg PO MOWEFR 09/24/13 06/22/19 RX: Albuterol Sulfate [Proair 90 mcg IH Q4HR PRN 07/13/15 06/22/19 Respiclick] RX: Diclofenac Sodium [Voltaren] 2 - 4 gm TP DAILY 07/13/15 06/22/19 RX: Minoxidil [Hair Regrowth 0 gm TP BID 07/13/15 06/22/19 Treatment] RX: ALPRAZolam [Alprazolam] 0.25 mg PO DAILY PRN 08/10/17 06/22/19 RX: Niacin [Niaspan] 500 mg PO DAILY 08/10/17 06/22/19 RX: Cholecalciferol (Vitamin D3) 2,000 unit PO DAILY 09/10/17 06/22/19 [Vitamin D3] RX: Cetirizine [ZyrTEC] 10 mg PO DAILY 09/11/17 06/22/19 RX: Ipratropium [place] 2 sprays RODNEY Q8H PRN 09/11/17 06/22/19 RX: Montelukast [Singulair] 10 mg PO QPM 09/11/17 06/22/19 RX: Rivaroxaban [Xarelto] 15 mg PO QDDINNER 09/11/17 06/22/19 RX: carvediloL [Coreg] 25 mg PO BIDWM #0 09/11/17 06/22/19 RX: diltiaZEM [Cardizem] 120 mg PO BID 11/23/18 06/22/19 - LABS Result Diagrams: 06/24/19 13:02 06/24/19 04:40 - SEPSIS Current Stage of Sepsis: Ruled out"
[2019-06-25 18:51] VITALS: BP 149/54
[2019-06-25] MEDS ORDERED: NEOSTIGMINE 1 MG/1 ML 10 ML MDV IVP ONE (19:44)
[2019-06-25] MEDS ORDERED: MIDAZOLAM 2 MG/2 ML VIAL IVP ONE (19:44)
[2019-06-25] MEDS ORDERED: PROPOFOL 200 MG/20 ML VIAL IVP ONE (19:44)
[2019-06-25] MEDS ORDERED: risperiDONE 0.25 MG TABLET PO SCH (21:00)
== END 2019-06-25 19:45 | disposition short-term general hospital (02) | DRG 394 ==
LOC: ED 10:28 → MS3 13:50 → OBSVTOIN 06-24 07:40
PROVIDERS: ADMIT Nurse Practitioner Gerontology; ATTEND Specialist
PROC: 0DBK8ZX Excision of Ascending Colon, Via Natural or Artificial Opening Endoscopic, Diagnostic (ICD-10-PCS; principal; 2019-06-24 11:30)
PROC: 0DJ08ZZ Inspection of Upper Intestinal Tract, Via Natural or Artificial Opening Endoscopic (ICD-10-PCS; 2019-06-24 11:30)
DX: K92.1 Melena (principal); K55.9 Vascular disorder of intestine, unspecified; I48.20 Chronic atrial fibrillation, unspecified; I50.42 Chronic combined systolic (congestive) and diastolic (congestive) heart failure; N17.9 Acute kidney failure, unspecified; I13.0 Hypertensive heart and chronic kidney disease with heart failure and stage 1 through stage 4 chronic kidney disease, or unspecified chronic kidney disease; E11.9 Type 2 diabetes mellitus without complications; I11.0 Hypertensive heart disease with heart failure; D68.32 Hemorrhagic disorder due to extrinsic circulating anticoagulants; D64.9 Anemia, unspecified; C18.2 Malignant neoplasm of ascending colon; T45.515A Adverse effect of anticoagulants, initial encounter; Y92.002 Bathroom of unspecified non-institutional (private) residence as the place of occurrence of the external cause; E11.22 Type 2 diabetes mellitus with diabetic chronic kidney disease; N18.3 Chronic kidney disease, stage 3 (moderate); E86.0 Dehydration; F41.9 Anxiety disorder, unspecified; J44.9 Chronic obstructive pulmonary disease, unspecified; I07.1 Rheumatic tricuspid insufficiency; R41.0 Disorientation, unspecified; I27.20 Pulmonary hypertension, unspecified; I27.81 Cor pulmonale (chronic); D50.9 Iron deficiency anemia, unspecified; Z66 Do not resuscitate; Z79.01 Long term (current) use of anticoagulants; Z87.19 Personal history of other diseases of the digestive system; Z79.84 Long term (current) use of oral hypoglycemic drugs; Z79.899 Other long term (current) drug therapy
CPT/HCPCS: 36415; 80048; 80053; 82607; 82728; 83036; 83540; 83615; 83690; 83735; 84466; 84484; 85014; 85018; 85025; 85045; 85610; 86850; 86900; 86901; 93005; 93306; 96361; 96365; 96375; 96376; 99285; A9270; G0378; J7120

== ENCOUNTER 2019-06-25 18:58 | Outpatient (CLI) | payer MEDICARE, OTHER | END 2019-06-25 18:59 | disposition short-term general hospital (02) | LOC: EMS 18:58 | PROVIDERS: ATTEND Surgery | DX: K92.1 Melena (principal); R41.0 Disorientation, unspecified | CPT/HCPCS: A0425; A0428 ==

== ENCOUNTER 2019-08-02 11:34 | Outpatient (CLI) | payer MEDICARE, OTHER ==
--- NOTE | 2019-08-03 01:29 | XRAY Report ---
Reason: 4TH TOE PAIN Procedure Date: 08/02/2019 Accession Number: [id number] / [id number] Procedure: XR - Foot 3 View RT CPT Code: Final Report FULL RESULT: EXAM: RIGHT FOOT RADIOGRAPHY EXAM DATE: 08/02/2019 11:54 AM CLINICAL HISTORY: 4th toe pain. COMPARISON: FOOT 3 VIEW RT 09/24/2013 8:43 AM. TECHNIQUE: 3 views. FINDINGS: Bones: Normal. No fractures or bone lesions. Joints: There are advanced degenerative changes at the first MTP joint. Degenerative changes also seen at the tarsometatarsal joints. No subluxations. Soft Tissues: Normal. No soft tissue swelling. IMPRESSION: No fractures or dislocations. Midfoot and first MTP joint degenerative changes. RADIA
== END 2019-08-02 11:35 | disposition home or self-care (01) ==
LOC: DI 11:34
PROVIDERS: ATTEND Physician Assistant Medical
DX: M19.071 Primary osteoarthritis, right ankle and foot (principal)

== ENCOUNTER 2020-02-02 10:38 | Outpatient (CLI) | payer MEDICARE, OTHER ==
[2020-02-02] MEDS ORDERED: IOVERSOL 320 50 ML VIAL ONE (10:51)
[2020-02-02] MEDS ORDERED: IOVERSOL 320 100 ML VIAL IVP ONE ×2 (10:51→13:54)
[2020-02-02 11:04] LABS: CREATININE 1.9 mg/dL (0.4-1.0)
--- NOTE | 2020-02-02 12:54 | CT Report ---
PROCEDURE: Abdomen/Pelvis W INDICATIONS: COLON MASS CONTRAST: IV CONTRAST: Optiray 320 ml: 50 PO CONTRAST: Optiray 320 ml50 TECHNIQUE: After the administration of oral and intravenous contrast, 5 mm thick sections acquired from the diap hragms to the symphysis. 5 mm thick coronal and sagittal reformats were acquired. For radiation dos e reduction, the following was used: automated exposure control, adjustment of mA and/or kV accordin g to patient size. COMPARISON: 12/10/2018 CT scanning that included the lung bases, and the abdomen/pelvis. FINDINGS: Image quality: Excellent. ABDOMEN: Lung bases: Lung bases are improved with a reduction in size of a medial right lung base area of mary g radiodensity previously measuring up to 5.1 x 3.9 cm, solid in appearance, and now measuring only 2 .2 x 1.7 cm. Chronic lung disease at each lung base is present posteriorly with mild prominence of t he peribronchial soft tissues consistent with chronic bronchitis. Heart size is normal. Solid organs: Liver and spleen are normal in size and enhancement considering the relatively early p hase of contrast enhancement. Gallbladder appears normal Biliary system is non dilated. Pancreas e nhances normally. No adrenal nodules. Kidneys demonstrate normal size and enhancement, without hydr onephrosis. Peritoneum and bowel: Bowel loops demonstrate normal wall thickness and caliber. No free fluid or a ir. Scattered colonic diverticulosis is noted without acute diverticulitis. Nodes and vessels: No retroperitoneal or mesenteric adenopathy by size criteria. Aorta and inferior vena cava are normal in size. Miscellaneous: No ventral hernias. PELVIS: Genitourinary: Bladder wall thickness is normal. Miscellaneous: No inguinal hernias or adenopathy. Metal artifact from bilateral hip arthroplasty pr ocedures results in relatively poor visualization over the lower third of the pelvis. Crossing throug h this area is a portion of the rectum and sigmoid bowel, and the sigmoid shows extensive sigmoid div erticulosis without definite acute diverticulitis. Bones: No suspicious bony lesions. No vertebral body compression fractures. IMPRESSION: 1. As discussed above there is extensive sigmoid diverticulosis but without definite acute diverticul itis. 2. The clinical history indicates presence of a colonic mass lesion but significant portions of the l ower third of the pelvis are not well visualized due to metal artifact from bilateral hip arthroplast y procedures in the past. Please correlate clinically for area of mass. 3. No adenopathy is found, no hepatic metastatic disease is seen. The contrast enhancement phase for this examination is relatively early resulting in reduced opacification of the hepatic veins and live r parenchyma. 4. An area of dense solid-appearing consolidation found at the medial right lung base on prior CT sca nning that included that area has significantly improved with only mild residual and this indicates t hat benign etiology from chronic inflammation in that area is the presumed cause, rather than primary or metastatic neoplasm. Reviewed by: Trent Salamanca MD on 02/02/2020 12:52 PM PDT Approved by: Trent Salamanca MD on 02/02/2020 12:52 PM PDT Station ID: [id number]
[2020-02-02] MEDS ORDERED: IOVERSOL 320 50 ML VIAL PO ONE (13:53)
== END 2020-02-02 10:39 | disposition home or self-care (01) ==
LOC: LAB 10:38
PROVIDERS: ATTEND Surgery
DX: K57.30 Diverticulosis of large intestine without perforation or abscess without bleeding (principal); R91.8 Other nonspecific abnormal finding of lung field; K63.89 Other specified diseases of intestine
CPT/HCPCS: 36415; 74177; 82565; Q9967

== ENCOUNTER 2021-03-13 07:40 | Inpatient (IN) | payer MEDICARE, OTHER ==
[2021-03-13 08:12] LABS: BASOPHILS # (AUTO) 0.1 10^3/uL (0.0-0.1); BASOPHILS % (AUTO) 0.8 %; EOSINOPHILS # (AUTO) 0.1 10^3/uL (0.0-0.7); EOSINOPHILS % (AUTO) 2.1 %; HCT - HEMATOCRIT 36.9 % (37.0-47.0); HGB - HEMOGLOBIN 11.4 g/dL (12.0-16.0); LYMPHOCYTES % (AUTO) 16.9 %; MEAN CORPUSCULAR HGB CONC 30.9 g/dL (32.0-36.0); MEAN CORPUSCULAR VOLUME 87.2 fL (81.0-99.0); MEAN PLATELET VOLUME 10.7 fL (7.9-10.8); MONOCYTES # (AUTO) 0.6 10^3/uL (0.0-1.0); MONOCYTES % (AUTO) 9.5 %; NEUTROPHILS # (AUTO) 4.3 10^3/uL (1.5-6.6); NEUTROPHILS % (AUTO) 70.5 %; PLT - PLATELET COUNT 126 10^3/uL (130-450); RED BLOOD COUNT 4.23 10^6/uL (4.20-5.40); RED CELL DISTRIBUTION WIDTH 15.3 % (12.0-15.0); WHITE BLOOD COUNT 6.1 x10^3/uL (4.8-10.8)
[2021-03-13 08:19] LABS: INR 1.1 (0.8-1.2); PT - PROTHROMBIN TIME 12.2 secs (9.9-12.6)
[2021-03-13 08:23] LABS: ALBUMIN 4.5 g/dL (3.2-5.5); ALBUMIN/GLOBULIN RATIO 1.1 (1.0-2.2); BILIRUBIN,TOTAL 0.7 mg/dL (0.2-1.0); CALCIUM 9.6 mg/dL (8.5-10.3); CREATININE 1.4 mg/dL (0.4-1.0); POTASSIUM 4.5 mmol/L (3.5-5.0); TOTAL PROTEIN 8.6 g/dL (6.7-8.2)
[2021-03-13 08:26] LABS: PARTIAL THROMBOPLASTIN TIME 39.4 secs (24.9-33.3)
[2021-03-13 08:31] LABS: BILIRUBIN,URINE NEGATIVE (NEGATIVE); GLUCOSE, URINE (UA) NEGATIVE (NEGATIVE); KETONES,URINE (UA) NEGATIVE (NEGATIVE); LEUKOCYTE ESTERASE, URINE NEGATIVE (NEGATIVE); NITRITE,URINE NEGATIVE (NEGATIVE); OCCULT BLOOD,URINE SMALL (NEGATIVE); PH,URINE 6.5 PH (5.0-7.5); PROTEIN,URINE NEGATIVE (NEGATIVE); UROBILINOGEN,URINE 0.2 (NORMAL) E.U./dL (NORMAL)
[2021-03-13 08:32] LABS: CLARITY,URINE CLEAR (CLEAR)
[2021-03-13] MEDS ORDERED: IOPAMIDOL-300 50 ML VIAL ONE (08:37)
[2021-03-13 08:38] LABS: BACTERIA,URINE Rare /HPF (None Seen); RBC,URINE 0-5 /HPF (0-5); SQUAMOUS EPITHELIAL CELL,UR RARE Squamous (<= Few); WBC,URINE 0-3 /HPF (0-5)
[2021-03-13] MEDS ORDERED: SODIUM CHLORIDE 0.9% 500 ML IV STA (08:44)
[2021-03-13] MEDS ORDERED: IOPAMIDOL-300 50 ML VIAL IVP ONE (09:13)
--- NOTE | 2021-03-13 09:28 | CT Report ---
PROCEDURE: Abdomen/Pelvis W INDICATIONS: rectal bleeding, h/o tubular adenoma, diverticulos CONTRAST: IV CONTRAST: Isovue 300 ml: 90 PO CONTRAST: *NO PO CONTRAST TECHNIQUE: After the administration of contrast, 5 mm thick sections acquired from the diaphragms to the sym physis. 5 mm thick coronal and sagittal reformats were acquired. For radiation dose reduction, the following was used: automated exposure control, adjustment of mA and/or kV according to patient size . COMPARISON: Prior CT abdomen/pelvis 02/02/2020, 12/10/2018.. FINDINGS: Image quality: Excellent. ABDOMEN: Lung bases: Lung bases are clear scarring with a degree of round atelectasis at the right lung base in an area of possible prior pulmonary mass identified 02/02/2020. The appearance now in that area is consistent with chronic scarring. Heart size is chronically mildly enlarged. Solid organs: Liver and spleen are normal in size and the liver is mildly heterogeneous in enhanceme nt, and there is a focus of stable appearing hyperenhancement at the right posterior hepatic segment seen on series 3 image 14, present also in November 2018, potentially a unilocular hemangioma. Gallbladde r appears free of active inflammation or calcified gallstones Biliary system is non dilated. Pancre as enhances normally. No adrenal nodules. Kidneys demonstrate normal size and enhancement, without hydronephrosis. Peritoneum and bowel: Bowel loops demonstrate normal wall thickness and caliber. No free fluid or a ir. Nodes and vessels: No retroperitoneal or mesenteric adenopathy by size criteria. Aorta and inferior vena cava are normal in size. Miscellaneous: No ventral hernias. PELVIS: Genitourinary: Bladder wall thickness is normal. Miscellaneous: No inguinal hernias or adenopathy. There is extensive metal artifact associated with bilateral total hip arthroplasty devices obscuring clear visualization of much of the lower third of the pelvis. Sigmoid diverticulosis is prominent without identified acute diverticulitis. A colonic m ass lesion is not seen. Bones: No suspicious bony lesions. No vertebral body compression fractures. IMPRESSION: Source of reported rectal bleeding is not identified. Chronic diverticulosis is prominen t at the sigmoid colon. Much of the lower third of the pelvis cannot be seen due to relatively dense metal artifact from bilateral hip arthroplasties Crossing through this area. No underlying infection or neoplasm is found but depending on the clinical status follow-up colonoscopy may be warranted. Chronic mild cardiomegaly, mild heterogeneity of the liver parenchyma, possible unilocular hemangioma noted right posterior hepatic segment that present since at least November 2018 and therefore requiring n o specific follow-up. Reviewed by: Trent Salamanca MD on 03/13/2021 9:27 AM PDT Approved by: Trent Salamanca MD on 03/13/2021 9:27 AM PDT Station ID: [id number]
--- NOTE | 2021-03-13 09:46 | ED Physician Documentation ---
History of Present Illness - Stated complaint Stated Complaint: BLOOD IN STOOL - Chief complaint Chief Complaint: General - History obtained from History obtained from: Patient - History of Present Illness Timing: Today Pain level max: 0 Pain level now: 0 - Additonal information Additional information: 89-year-old female presents to the emergency department with bright red blood per rectum x3 today. Denies any abdominal pain. Had similar history about 3 to 4 years ago. She states that at that time she was found to have a tubular adenoma. This was not further resected but was biopsied on colonoscopy. She also was on Xarelto for atrial fibrillation at that time. Has had no fevers. No trauma. Nothing makes it better or worse. Review of Systems Ten Systems: 10 systems reviewed and negative Constitutional: denies: Fever, Chills Cardiac: denies: Chest pain / pressure, Palpitations Respiratory: denies: Dyspnea, Cough GI: denies: Vomiting Skin: denies: Rash Musculoskeletal: denies: Neck pain, Back pain Neurologic: denies: Headache PD PAST MEDICAL HISTORY - Past Medical History Past Medical History: Yes Cardiovascular: Hypertension, High cholesterol, Coronary artery disease, [place], Atrial fibrillation, Valve disorder, Other Respiratory: Other Neuro: None Endocrine/Autoimmune: Type 2 diabetes, HyPOthyroidism GI: GERD, Diverticulitis, 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 : None HEENT: Chronic vision loss, Chronic hearing loss Psych: Anxiety Musculoskeletal: Osteoarthritis, Gout Derm: Eczema Other Past Medical History: pulmonary HTN - Past Surgical History Past Surgical History: Yes General: Colonoscopy Ortho: Hip replacement, Spine surgery, Other HEENT: Tonsil/Adenoidectomy - Present Medications Home Medications: Ambulatory Orders Medication Instructions Recorded Confirmed Furosemide 40 mg PO DAILY 09/24/13 03/13/21 Pantoprazole Sodium [Protonix] 40 mg PO DAILY 09/24/13 03/13/21 methIMAzole [Methimazole] 5 mg PO MOWEFR 09/24/13 06/22/19 Albuterol Sulfate [Proair 2 puffs IH Q4HR PRN 07/13/15 03/13/21 Respiclick] Diclofenac Sodium [Voltaren] 2 - 4 gm TP DAILY 07/13/15 03/13/21 Minoxidil [Hair Regrowth Treatment] 1 applic TP BID 07/13/15 06/22/19 ALPRAZolam [Alprazolam] 0.25 mg PO DAILY PM PRN 08/10/17 03/13/21 Cetirizine [ZyrTEC] 10 mg PO DAILY 09/11/17 03/13/21 carvediloL [Coreg] 25 mg PO BIDWM #0 09/11/17 03/13/21 Biotin 2,500 mcg PO DAILY 03/13/21 03/13/21 Carboxymethylcellulos/Glycerin 1 - 3 drops OP TID PRN 03/13/21 03/13/21 [Refresh Optive Eye Drops] Clobetasol Propionate [Temovate] 1 applic TP DAILY PRN 03/13/21 03/13/21 Diltiazem HCl [Diltiazem 12Hr ER] 120 mg PO BID 03/13/21 03/13/21 Fluticasone [Flonase] 2 sprays RODNEY DAILY 03/13/21 03/13/21 Losartan Potassium 25 mg PO DAILY 03/13/21 03/13/21 Potassium Chloride [Klor-Con 10] 25 meq PO DAILY 03/13/21 03/13/21 Simvastatin [Zocor] 20 mg PO HS 03/13/21 03/13/21 - Allergies Allergies/Adverse Reactions: Allergies Allergy/AdvReac Type Severity Reaction Status Date / Time SEGUNDO Inhibitors Allergy Unknown Verified 03/13/21 07:52 amoxicillin Allergy Unknown Verified 03/13/21 07:52 codeine Allergy hyperactivi Verified 03/13/21 07:52 ty Penicillins Allergy Rash Verified 03/13/21 07:52 - Social History Does the pt smoke?: No Smoking Status: Never smoker Does the pt drink ETOH?: Yes Does the pt have substance abuse?: No - Immunizations Immunizations are current?: Yes - POLST Patient has POLST: Yes PD ED PE NORMAL - Vitals Vital signs reviewed: Yes - General General: Alert and oriented X 3, No acute distress - HEENT HEENT: Moist mucous membranes - Neck Neck: Supple, no meningeal sign - Cardiac Cardiac: RRR - Respiratory Respiratory: No respiratory distress, Clear bilaterally - Abdomen Abdomen: Soft, Non tender, Non distended - Rectal Rectal: Pt declined - Back Back: No CVA TTP, No spinal TTP - Derm Derm: Warm and dry - Extremities Extremities: No edema - Neuro Neuro: Alert and oriented X 3 - Psych Psych: Normal mood, Normal affect Results - Vitals Vitals: Vital Signs - 24 hr 03/13/21 03/13/21 03/13/21 07:46 08:07 09:47 Temperature 36.6 C Heart Rate 62 72 77 Respiratory 18 20 16 Rate Blood Pressure 147/58 H 166/76 H 157/69 H O2 Saturation 99 99 100 03/13/21 10:00 Temperature Heart Rate 75 Respiratory 16 Rate Blood Pressure 142/77 H O2 Saturation 100 Oxygen O2 Source Room air - Labs Labs: Laboratory Tests 03/13/21 03/13/21 03/13/21 08:08 08:08 08:08 WBC 6.1 RBC 4.23 Hgb 11.4 L Hct 36.9 L MCV 87.2 MCH 27.0 MCHC 30.9 L RDW 15.3 H Plt Count 126 L MPV 10.7 Neut # (Auto) 4.3 Lymph # (Auto) 1.0 L Snyder # (Auto) 0.6 Eos # (Auto) 0.1 Baso # (Auto) 0.1 Absolute Nucleated RBC 0.00 Nucleated RBC % 0.0 PT 12.2 INR 1.1 APTT 39.4 H Sodium 136 Potassium 4.5 Chloride 99 L Carbon Dioxide 25 Anion Gap 12.0 BUN 33 H Creatinine 1.4 H Estimated GFR (MDRD) 35 L Glucose 115 H Calcium 9.6 Total Bilirubin 0.7 AST 21 ALT 17 Alkaline Phosphatase 120 Total Protein 8.6 H Albumin 4.5 Globulin 4.1 Albumin/Globulin Ratio 1.1 Lipase 40 Urine Color Urine Clarity Urine pH Ur Specific [place] Urine Protein Urine Glucose (UA) Urine Ketones Urine Occult Blood Urine Nitrite Urine Bilirubin Urine Urobilinogen Ur Leukocyte Esterase Urine RBC Urine WBC Ur Squamous Epith Cells Urine Bacteria Ur Microscopic Review Urine Culture Comments Nasal Adenovirus (PCR) Nasal B. parapertussis DNA (PCR) Nasal Coronavir 229E PCR Nasal Coronavir HKU1 PCR Nasal Coronavir NL63 PCR Nasal Coronavir OC43 PCR Nasal Enterovir/Rhinovir PCR Nasal Influenza B PCR Nasal Influenza A PCR Nasal Parainfluen 1 PCR Nasal Parainfluen 2 PCR Nasal Parainfluen 3 PCR Nasal Parainfluen 4 PCR Nasal RSV (PCR) Nasal B.pertussis DNA PCR Nasal C.pneumoniae (PCR) Rodney Human Metapneumo PCR Nasal M.pneumoniae (PCR) Nasal SARS-CoV-2 (PCR) 03/13/21 03/13/21 08:15 10:17 WBC RBC Hgb Hct MCV MCH MCHC RDW Plt Count MPV Neut # (Auto) Lymph # (Auto) Snyder # (Auto) Eos # (Auto) Baso # (Auto) Absolute Nucleated RBC Nucleated RBC % PT INR APTT Sodium Potassium Chloride Carbon Dioxide Anion Gap BUN Creatinine Estimated GFR (MDRD) Glucose Calcium Total Bilirubin AST ALT Alkaline Phosphatase Total Protein Albumin Globulin Albumin/Globulin Ratio Lipase Urine Color STRAW Urine Clarity CLEAR Urine pH 6.5 Ur Specific [place] 1.010 Urine Protein NEGATIVE Urine Glucose (UA) NEGATIVE Urine Ketones NEGATIVE Urine Occult Blood SMALL H Urine Nitrite NEGATIVE Urine Bilirubin NEGATIVE Urine Urobilinogen 0.2 (NORMAL) Ur Leukocyte Esterase NEGATIVE Urine RBC 0-5 Urine WBC 0-3 Ur Squamous Epith Cells RARE Squamous Urine Bacteria Rare Ur Microscopic Review INDICATED Urine Culture Comments NOT INDICATED Nasal Adenovirus (PCR) NOT DETECTED Nasal B. parapertussis DNA (PCR) NOT DETECTED Nasal Coronavir 229E PCR NOT DETECTED Nasal Coronavir HKU1 PCR NOT DETECTED Nasal Coronavir NL63 PCR NOT DETECTED Nasal Coronavir OC43 PCR NOT DETECTED Nasal Enterovir/Rhinovir PCR NOT DETECTED Nasal Influenza B PCR NOT DETECTED Nasal Influenza A PCR NOT DETECTED Nasal Parainfluen 1 PCR NOT DETECTED Nasal Parainfluen 2 PCR NOT DETECTED Nasal Parainfluen 3 PCR NOT DETECTED Nasal Parainfluen 4 PCR NOT DETECTED Nasal RSV (PCR) NOT DETECTED Nasal B.pertussis DNA PCR NOT DETECTED Nasal C.pneumoniae (PCR) NOT DETECTED Rodney Human Metapneumo PCR NOT DETECTED Nasal M.pneumoniae (PCR) NOT DETECTED Nasal SARS-CoV-2 (PCR) NOT DETECTED - Rads (name of study) CT abd/pelvis Radiology: Final report received, EMP read contemporaneously, See rad report PD MEDICAL DECISION MAKING - ED course Complexity details: reviewed old records, reviewed results, re-evaluated patient, considered differential, d/w patient, d/w political consultant ED course: Recommends [id number] female with rectal bleeding. Did have 2 more episodes of rectal bleeding here with stooling. Bright red blood. She is not currently anticoagulated. Discussed the case with Dr. Gomez, general surgery on-call care, does not see a need to repeat a colonoscopy as her last colonoscopy was 3 years ago and showed a tubular adenoma. No acute findings on CT scan. He states he is happy to consult on the patient if the patient worsens. Recommends observation with medicine. Discussed the case with Dr. Jules, hospitalist who accepts This document was made in part using voice recognition software. While efforts are made to proofread this document, sound alike and grammatical errors may occur. IMPRESSION: Source of reported rectal bleeding is not identified. Chronic diverticulosis is prominent at the sigmoid colon. Much of the lower third of the pelvis cannot be seen due to relatively dense metal artifact from bilateral hip arthroplasties Crossing through this area. No underlying infection or neoplasm is found but depending on the clinical status follow-up colonoscopy may be warranted. Chronic mild cardiomegaly, mild heterogeneity of the liver parenchyma, possible unilocular hemangioma noted right posterior hepatic segment that present since at least November 2018 and therefore requiring no specific follow-up. Departure - Departure Disposition: ED Place in Observation Clinical Impression: GI bleeding Qualifiers: GI bleed type/associated pathology: anorectal hemorrhage Qualified Code(s): K62.5 - Hemorrhage of anus and rectum Condition: Stable Discharge Date/Time: 03/13/21 11:13
[2021-03-13] MEDS ORDERED: SODIUM CHLORIDE FLUSH 0.9% 10 ML SYRINGE IVP PRN (10:25)
[2021-03-13] MEDS ORDERED: ONDANSETRON 4 MG/2 ML VIAL IVP PRN (10:25)
--- NOTE | 2021-03-13 10:32 | HISTORY & PHYSICAL EXAMINATION ---
Chief Complaint - Chief Complaint Chief Complaint: Blood in stool History of Present Illness - Admitted From Admitted From:: Home - History Obtained From Records Reviewed: Yes History obtained from: Patient, ER Physician, EMR - History of Present Illness HPI Comment/Other: This is a 89-year-old female with a past medical history significant for chronic heart failure with reduced ejection fraction, atrial fibrillation, COPD, cecal polyp who presents today complaining of blood in her stool. She states that she woke up this morning and had 3-4 bloody bowel movements. She had this before nearly 2 years ago and she is aware that she has a polyp in her colon. She was transferred to centers at [place] at that time but she states they did not perform any surgical intervention for her as it was felt that she was high risk for any procedure. She has been off of all anticoagulation since then and has been doing well up until this morning. She has no associated abdominal pain. Denies nausea, vomiting, dysuria, urgency, hematuria. She continued to have bloody stool in the emergency department. In the emergency department, she is noted to be hemodynamically stable. Her hemoglobin was noted to 11.4 and her platelet count was low 126. She underwent a CT of the abdomen and pelvis which showed no obvious source of the bleeding. Given her ongoing bleeding, medicine was consulted for admission. I did discuss goals of care with the patient and she would like to be a DNR. 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 She has 3 siblings who all from cancer. They were all smokers. One brother had lung cancer but she is unaware of what the other 2 cancers were. Living arrangement: At home Living Situation: With spouse/s.o. Social History Notes: She lives at home with her . She is a non-smoker and rarely drinks alcohol. - POLST Patient has POLST: Yes Meds/Allgy - Home Medications Home Medications: Ambulatory Orders Medication Instructions Recorded Confirmed Furosemide 40 mg PO DAILY 09/24/13 03/13/21 Pantoprazole Sodium [Protonix] 40 mg PO DAILY 09/24/13 03/13/21 methIMAzole [Methimazole] 5 mg PO MOWEFR 09/24/13 06/22/19 Albuterol Sulfate [Proair 2 puffs IH Q4HR PRN 07/13/15 03/13/21 Respiclick] Diclofenac Sodium [Voltaren] 2 - 4 gm TP DAILY 07/13/15 03/13/21 Minoxidil [Hair Regrowth Treatment] 1 applic TP BID 07/13/15 06/22/19 ALPRAZolam [Alprazolam] 0.25 mg PO DAILY PM PRN 08/10/17 03/13/21 Cetirizine [ZyrTEC] 10 mg PO DAILY 09/11/17 03/13/21 carvediloL [Coreg] 25 mg PO BIDWM #0 09/11/17 03/13/21 Biotin 2,500 mcg PO DAILY 03/13/21 03/13/21 Carboxymethylcellulos/Glycerin 1 - 3 drops OP TID PRN 03/13/21 03/13/21 [Refresh Optive Eye Drops] Clobetasol Propionate [Temovate] 1 applic TP DAILY PRN 03/13/21 03/13/21 Diltiazem HCl [Diltiazem 12Hr ER] 120 mg PO BID 03/13/21 03/13/21 Fluticasone [Flonase] 2 sprays RODNEY DAILY 03/13/21 03/13/21 Losartan Potassium 25 mg PO DAILY 03/13/21 03/13/21 Potassium Chloride [Klor-Con 10] 25 meq PO DAILY 03/13/21 03/13/21 Simvastatin [Zocor] 20 mg PO HS 03/13/21 03/13/21 - Allergies Allergies/Adverse Reactions: Allergies Allergy/AdvReac Type Severity Reaction Status Date / Time SEGUNDO Inhibitors Allergy Unknown Verified 03/13/21 07:52 amoxicillin Allergy Unknown Verified 03/13/21 07:52 codeine Allergy hyperactivi Verified 03/13/21 07:52 ty Penicillins Allergy Rash Verified 03/13/21 07:52 Review of Systems - Constitutional Constitutional: denies: Fever, Chills, Malaise, Weakness - Cardiovascular Cariovascular: denies: Chest pain, Exertional dyspnea, Decr. exercise tolerance - Respiratory Respiratory: reports: SOB with exertion. denies: SOB at rest - Gastrointestinal Gastrointestinal: reports: Rectal bleeding, Bloody stools. denies: Abdominal pain, Constipation, Diarrhea, Nausea, Vomiting, Levy blood emesis - Genitourinary Genitourinary: denies: Dysuria, Frequency, Urgency, Hematuria - Integumentary Integumentary: denies: Rash - Neurological Neurological: denies: General weakness, Focal weakness - Hematologic/Lymphatic Hematologic/Lymphatic: reports: Bleeding tendencies. denies: Anemia - All Other Systems All Other Systems: reports: Reviewed and negative Prior Level of Functionality: She is independent with her ADLs. She ambulates with a cane at baseline. Exam - Vital Signs Reviewed Vital Signs: Yes Vital Signs: Vital Signs x48h Temp Pulse Resp BP Pulse Ox 03/13/21 09:47 77 16 157/69 H 100 03/13/21 08:07 72 20 166/76 H 99 03/13/21 07:46 36.6 C 62 18 147/58 H 99 - Physical Exam General Appearance: positive: No acute distress, Alert ENT: positive: ENT inspection nml Neck: positive: Nml inspection Respiratory: positive: No respiratory distress. negative: Wheezes, Rales Cardiovascular: positive: Irregularly irregular. negative: Tachycardia, Systolic murmur Abdomen: positive: Non-tender, Nml bowel sounds, No distention. negative: Tenderness, Guarding, Rebound Skin: positive: Warm, Dry Extremities: positive: No pedal edema Neurologic/Psychiatric: negative: Disoriented to person, Disoriented to place Conclusion/Plan - Problem List (1) Lower GI bleed Conclusion/Plan: She presents with bright red blood per rectum which may be secondary to diverticulosis or the cecal polyp which was known from previous colonoscopy. Given she has continued to have bleeding in the emergency department, we will place her in observation overnight. We will trend her hemoglobin every 8 hours. There is no indication for transfusion at this point in time. We are hopeful that her bleeding will subside but if it persists then will discuss with general surgery to see if there is a role for colonoscopy. If he does have ongoing bleeding has significant she may need to be transferred to high-level care for surgical intervention given she has the known cecal polyp and she likely would not be a good surgical candidate for our facility. (2) Adenomatous polyp of cecum Conclusion/Plan: She has a known cecal polyp and biopsies revealed a tubular adenoma. She was transferred to [place] during the prior hospitalization but reportedly has not had any intervention on this mass. This can be contributing to her current episode of bleeding. I have requested records from [place] to see what exactly was done during her previous hospitalization. We will continue to monitor for bleeding as mentioned above. (3) Atrial fibrillation Conclusion/Plan: She is no longer on Xarelto given the GI bleed and known cecal mass. We will continue her home carvedilol and diltiazem. Qualifiers: Atrial fibrillation type: chronic (4) Chronic HFrEF (heart failure with reduced ejection fraction) Conclusion/Plan: Her last echocardiogram revealed an ejection fraction of 45%. This is currently not in exacerbation. We will continue her home losartan and carvedilol. We will look to resume her Lasix tomorrow. (5) Chronic obstructive pulmonary disease (COPD) Conclusion/Plan: Stable and not in exacerbation. Continue with albuterol as needed. (6) Cor pulmonale (chronic) Conclusion/Plan: This is likely secondary to her chronic heart failure and her COPD. Her last echocardiogram revealed a RVSP of 89 mmHg. We will look to resume her home Lasix tomorrow. - Lab Results Lab results reviewed: Yes Maicol Bones: 03/13/21 08:08 03/13/21 08:08 - Diagnostic Imaging Results Diagnostic Imaging Results: positive: Final report reviewed Core Measures - Anticipated LOS I expect patient to be DC'd or transferred within 96 hours.: Yes - Issues Hospital Issues and Management Plan: 89-year-old female with a known cecal polyp and diverticulosis presents with lower GI bleed. Will place in observation to monitor hemoglobin and monitor for further evidence of bleeding. - DVT/VTE - Prophylaxis VTE/DVT Device ordered at admit?: Yes VTE/DVT Prophylaxis med ordered at admit?: No Not Ordered - Medical Reason: Contraindicated
[2021-03-13] MEDS ORDERED: LACTATED RINGERS 1,000 ML IV SCH (11:00)
--- NOTE | 2021-03-13 11:01 | PHARMACY PROGRESS NOTE ---
- Best Possible Medication History Admit Date and Time: 03/13/21 1025 Processed by: Nursing (MED REC COMPLETED BY NURSING) Medication History completed: Yes Patient Interview: Completed As the person ultimately responsible for medication therapy, providers are able to order a medication from an existing home medication list in [facility] via the "Reconcile Routine" prior to Confirmation of that medication by peer support specialist. Such practice is discouraged except when the physician, in their clinical judgment, deems that a medical need exists for a medication without regard to previous use.
[2021-03-13 11:47] LABS: B. PARAPERTUSSIS- RESP PCR PAN NOT DETECTED; B. PERTUSSIS- RESP PCR PANEL NOT DETECTED; C. PNEUMONIAE- RESP PCR PANEL NOT DETECTED; CORONAVIRUS 229E-RESP PCR NOT DETECTED; CORONAVIRUS HKU1-RESP PCR NOT DETECTED; CORONAVIRUS NL63-RESP PCR NOT DETECTED; CORONAVIRUS OC43-RESP PCR NOT DETECTED; HUMAN METAPNEUMOVIRUS NOT DETECTED; INFLUENZA A- RESP PCR PANEL NOT DETECTED; INFLUENZA B - RESP PCR PANEL NOT DETECTED; M. PNEUMONIAE- RESP PCR PANEL NOT DETECTED; PARAINFLUENZA VIRUS 1 NOT DETECTED; PARAINFLUENZA VIRUS 2 NOT DETECTED; PARAINFLUENZA VIRUS 3 NOT DETECTED; PARAINFLUENZA VIRUS 4 NOT DETECTED; RHINOVIRUS/ENTEROVIRUS NOT DETECTED; RSV- RESP PCR PANEL NOT DETECTED; SARS-CoV-2 -RESP PCR PANEL NOT DETECTED
[2021-03-13] MEDS ORDERED: ALBUTEROL SULFATE 90 MCG IH PRN (12:08)
[2021-03-13] MEDS ORDERED: ALBUTEROL NEB 2.5 MG/3 ML INH PRN (12:22)
[2021-03-13 13:53] LABS: HCT - HEMATOCRIT 32.3 % (37.0-47.0)
[2021-03-13] MEDS: SODIUM CHLORIDE FLUSH 0.9% 10 ML SYRINGE IVP SCH (16:35)
[2021-03-13] MEDS: carvediloL 12.5 MG TABLET PO SCH (16:35)
[2021-03-13] MEDS: ATORVASTATIN 10 MG TABLET PO SCH (20:16)
[2021-03-13] MEDS: diltiaZEM CD 120 MG CAPSULE PO SCH (20:16)
[2021-03-13] MEDS ORDERED: ALPRAZolam 0.25 MG TABLET PO PRN (21:00)
[2021-03-13 21:53] LABS: HCT - HEMATOCRIT 32.6 % (37.0-47.0); HGB - HEMOGLOBIN 10.1 g/dL (12.0-16.0)
[2021-03-14] MEDS: SODIUM CHLORIDE FLUSH 0.9% 10 ML SYRINGE IVP SCH ×3 (00:27→17:05)
[2021-03-14] MEDS: ACETAMINOPHEN 325 MG TABLET PO PRN ×3 (04:25→21:11)
[2021-03-14 06:03] LABS: BASOPHILS % (AUTO) 0.6 %; EOSINOPHILS # (AUTO) 0.1 10^3/uL (0.0-0.7); EOSINOPHILS % (AUTO) 1.1 %; HCT - HEMATOCRIT 29.5 % (37.0-47.0); HGB - HEMOGLOBIN 9.3 g/dL (12.0-16.0); LYMPHOCYTES # (AUTO) 1.2 10^3/uL (1.5-3.5); LYMPHOCYTES % (AUTO) 17.9 %; MEAN CORPUSCULAR HEMOGLOBIN 27.2 pg (27.0-31.0); MEAN CORPUSCULAR HGB CONC 31.5 g/dL (32.0-36.0); MEAN CORPUSCULAR VOLUME 86.3 fL (81.0-99.0); MEAN PLATELET VOLUME 10.3 fL (7.9-10.8); MONOCYTES # (AUTO) 0.7 10^3/uL (0.0-1.0); MONOCYTES % (AUTO) 10.7 %; NEUTROPHILS # (AUTO) 4.5 10^3/uL (1.5-6.6); NEUTROPHILS % (AUTO) 69.4 %; PLT - PLATELET COUNT 121 10^3/uL (130-450); RED BLOOD COUNT 3.42 10^6/uL (4.20-5.40); RED CELL DISTRIBUTION WIDTH 15.2 % (12.0-15.0); WHITE BLOOD COUNT 6.5 x10^3/uL (4.8-10.8)
[2021-03-14] MEDS: PANTOPRAZOLE 40 MG TABLET PO SCH (06:10)
[2021-03-14 06:12] LABS: CALCIUM 9.2 mg/dL (8.5-10.3); CREATININE 1.4 mg/dL (0.4-1.0)
[2021-03-14] MEDS: LOSARTAN 50 MG TABLET PO SCH (10:18)
[2021-03-14] MEDS: carvediloL 12.5 MG TABLET PO SCH ×2 (10:18→17:04)
[2021-03-14] MEDS: CETIRIZINE 10 MG TABLET PO SCH (10:18)
[2021-03-14] MEDS: POTASSIUM CHLORIDE 20 MEQ TABLET PO SCH (10:18)
[2021-03-14] MEDS: diltiaZEM CD 120 MG CAPSULE PO SCH ×2 (10:18→21:12)
[2021-03-14 14:04] LABS: HCT - HEMATOCRIT 28.4 % (37.0-47.0); HGB - HEMOGLOBIN 8.8 g/dL (12.0-16.0)
--- NOTE | 2021-03-14 14:43 | PROVIDER PROGRESS NOTE ---
Subjective - Prog Note Date Prog Note Date: 03/14/21 - Subjective Subjective: She felt like the bleeding had subsided yesterday evening but this morning she another noted bloody bowel movement. She denies abdominal pain. She reports feeling well otherwise. Denies dizziness or lightheadedness. She has made it quite clear she does not want any surgical intervention. Current Medications - Current Medications Current Medications: Active Medications Acetaminophen (Acetaminophen 325 Mg Tablet) 650 mg PO Q4HR PRN PRN Reason: Pain 1 to 4 Last Admin: 03/14/21 11:33 Dose: 650 mg Documented by: Albuterol (Albuterol Neb 2.5 Mg/3 Ml) 2.5 mg INH RTQ4H PRN PRN Reason: Wheezing Alprazolam (Alprazolam 0.25 Mg Tablet) 0.25 mg PO QPM PRN PRN Reason: Anxiety Atorvastatin Calcium (Atorvastatin 10 Mg Tablet) 10 mg PO QPM [facility] Last Admin: 03/13/21 20:16 Dose: 10 mg Documented by: Carvedilol (Carvedilol 12.5 Mg Tablet) 25 mg PO BIDWM [facility] Last Admin: 03/14/21 10:18 Dose: 25 mg Documented by: Cetirizine HCl (Cetirizine 10 Mg Tablet) 10 mg PO DAILY [facility] Last Admin: 03/14/21 10:18 Dose: 10 mg Documented by: Diltiazem HCl (Diltiazem Cd 120 Mg Capsule) 120 mg PO BID [facility] Last Admin: 03/14/21 10:18 Dose: 120 mg Documented by: Losartan Potassium (Losartan 50 Mg Tablet) 25 mg PO DAILY [facility] Last Admin: 03/14/21 10:18 Dose: 25 mg Documented by: Ondansetron HCl (Ondansetron 4 Mg/2 Ml Vial) 4 mg IVP Q6HR PRN PRN Reason: Nausea / Vomiting Pantoprazole Sodium (Pantoprazole 40 Mg Tablet) 40 mg PO QDAC [facility] Last Admin: 03/14/21 06:10 Dose: 40 mg Documented by: Potassium Chloride (Potassium Chloride 20 Meq Tablet) 25 meq PO DAILYWM [facility] Last Admin: 03/14/21 10:18 Dose: 25 meq Documented by: Sodium Chloride (Sodium Chloride Flush 0.9% 10 Ml Syringe) 10 ml IVP PRN PRN PRN Reason: NEEDED PER PROVIDER ORDERS Sodium Chloride (Sodium Chloride Flush 0.9% 10 Ml Syringe) 10 ml IVP 0100,0900,1700 MILANA Last Admin: 03/14/21 10:19 Dose: 10 ml Documented by: Furosemide 40 mg PO DAILY 09/24/13 Pantoprazole Sodium [Protonix] 40 mg PO DAILY 09/24/13 methIMAzole [Methimazole] 5 mg PO MOWEFR 09/24/13 Albuterol Sulfate [Proair Respiclick] 2 puffs IH Q4HR PRN 07/13/15 Diclofenac Sodium [Voltaren] 2 - 4 gm TP DAILY 07/13/15 Minoxidil [Hair Regrowth Treatment] 1 applic TP BID 07/13/15 ALPRAZolam [Alprazolam] 0.25 mg PO DAILY PM PRN 08/10/17 Cetirizine [ZyrTEC] 10 mg PO DAILY 09/11/17 Biotin 2,500 mcg PO DAILY 03/13/21 Carboxymethylcellulos/Glycerin [Refresh Optive Eye Drops] 1 - 3 drops OP TID PRN 03/13/21 Clobetasol Propionate [Temovate] 1 applic TP DAILY PRN 03/13/21 Diltiazem HCl [Diltiazem 12Hr ER] 120 mg PO BID 03/13/21 Fluticasone [Flonase] 2 sprays RODNEY DAILY 03/13/21 Losartan Potassium 25 mg PO DAILY 03/13/21 Potassium Chloride [Klor-Con 10] 25 meq PO DAILY 03/13/21 Simvastatin [Zocor] 20 mg PO HS 03/13/21 Objective - Vital Signs/Intake & Output Reviewed Vital Signs: Yes Vital Signs: Vital Signs x48h Temp Pulse Resp BP Pulse Ox 03/14/21 11:34 36.4 C L 74 19 126/53 L 98 03/14/21 10:16 86 148/66 H 03/14/21 07:35 36.9 C 77 19 145/63 H 97 Intake & Output: Intake & Output 03/11/21 03/12/21 03/13/21 03/14/21 23:59 23:59 23:59 23:59 Intake Total 3056 660 Output Total 750 1000 Balance 2306 -340 - Objective General Appearance: positive: No acute distress, Alert Eyes Bilateral: positive: Normal inspection ENT: positive: ENT inspection nml Neck: positive: Nml inspection Respiratory: positive: No respiratory distress. negative: Wheezes, Rales Cardiovascular: positive: Irregularly irregular. negative: Tachycardia Abdomen: positive: Non-tender, No distention. negative: Tenderness Skin: positive: Warm, Dry Extremities: positive: No pedal edema Neurologic/Psychiatric: negative: Disoriented to person, Disoriented to place - Lab Results Fish Bones: 03/14/21 14:00 03/14/21 05:46 Other Labs: Lab Results x24hrs 03/14/21 03/14/21 03/14/21 Range/Units 14:00 05:46 05:46 WBC 6.5 (4.8-10.8) x10^3/uL RBC 3.42 L (4.20-5.40) 10^6/uL Hgb 8.8 L 9.3 L (12.0-16.0) g/dL Hct 28.4 L 29.5 L (37.0-47.0) % MCV 86.3 (81.0-99.0) fL MCH 27.2 (27.0-31.0) pg MCHC 31.5 L (32.0-36.0) g/dL RDW 15.2 H (12.0-15.0) % Plt Count 121 L (130-450) 10^3/uL MPV 10.3 (7.9-10.8) fL Neut # (Auto) 4.5 (1.5-6.6) 10^3/uL Lymph # (Auto) 1.2 L (1.5-3.5) 10^3/uL Starke # (Auto) 0.7 (0.0-1.0) 10^3/uL Eos # (Auto) 0.1 (0.0-0.7) 10^3/uL Baso # (Auto) 0.0 (0.0-0.1) 10^3/uL Absolute Nucleated RBC 0.00 x10^3/uL Nucleated RBC % 0.0 /100WBC Sodium 137 (135-145) mmol/L Potassium 4.0 (3.5-5.0) mmol/L Chloride 103 (101-111) mmol/L Carbon Dioxide 24 (21-32) mmol/L Anion Gap 10.0 (6-13) BUN 28 H (6-20) mg/dL Creatinine 1.4 H (0.4-1.0) mg/dL Estimated GFR (MDRD) 35 L (>89) Glucose 110 H (70-100) mg/dL Calcium 9.2 (8.5-10.3) mg/dL Blood Type Antibody Screen 03/13/21 03/13/21 Range/Units 21:45 21:45 WBC (4.8-10.8) x10^3/uL RBC (4.20-5.40) 10^6/uL Hgb 10.1 L (12.0-16.0) g/dL Hct 32.6 L (37.0-47.0) % MCV (81.0-99.0) fL MCH (27.0-31.0) pg MCHC (32.0-36.0) g/dL RDW (12.0-15.0) % Plt Count (130-450) 10^3/uL MPV (7.9-10.8) fL Neut # (Auto) (1.5-6.6) 10^3/uL Lymph # (Auto) (1.5-3.5) 10^3/uL Starke # (Auto) (0.0-1.0) 10^3/uL Eos # (Auto) (0.0-0.7) 10^3/uL Baso # (Auto) (0.0-0.1) 10^3/uL Absolute Nucleated RBC x10^3/uL Nucleated RBC % /100WBC Sodium (135-145) mmol/L Potassium (3.5-5.0) mmol/L Chloride (101-111) mmol/L Carbon Dioxide (21-32) mmol/L Anion Gap (6-13) BUN (6-20) mg/dL Creatinine (0.4-1.0) mg/dL Estimated GFR (MDRD) (>89) Glucose (70-100) mg/dL Calcium (8.5-10.3) mg/dL Blood Type B POSITIVE Antibody Screen NEGATIVE ABX Reporting Has patient been on IV antibiotics over the past 48 hours?: No Assessment/Plan - Problem List (1) Lower GI bleed Impression: She continues to have bleeding and her hemoglobin is decreasing. It appears the frequency of the bleeding has improved. Our plan at this time is to continue supportive measures and hope that the bleeding subsides on its own. I do not believe a colonoscopy would be of benefit as we already know she has the cecal mass and a colonoscopy would not be therapeutic. She is also made it quite clear she does not want surgical intervention and if she were to have s ignificant bleeding then she would consider comfort measures. We will continue to trend her hemoglobin every 8 hours and transfuse as needed for goal hemoglobin greater than 7. I would like to see her have minimal bleeding and for her hemoglobin to stabilize before we consider discharge. (2) Acute blood loss anemia Impression: This is secondary to the lower GI bleed. Her hemoglobin is slowly decreasing but there is no indication for transfusion. We will continue to monitor hemoglobin every 8 hours and transfuse for goal hemoglobin greater than 7. (3) Adenomatous polyp of cecum Impression: This is a likely cause of her GI bleed. She has made it quite clear she does not want surgical intervention. We are hoping that the bleeding will subside on its own. We did discuss that there is a good chance this will occur again without surgical intervention and she understands this. (4) Atrial fibrillation Impression: She remains rate controlled on diltiazem and carvedilol which we are continuing. She is not on anticoagulation due to the bleeding. Qualifiers: Atrial fibrillation type: chronic (5) Chronic HFrEF (heart failure with reduced ejection fraction) Impression: Not in exacerbation. IV fluids have been discontinued. We will resume her oral Lasix. (6) Chronic obstructive pulmonary disease (COPD) Impression: Stable and not in exacerbation. Continue albuterol as needed. (7) Cor pulmonale (chronic) Impression: This is likely secondary to her heart failure and COPD. We will resume her oral Lasix.
[2021-03-14] MEDS: ATORVASTATIN 10 MG TABLET PO SCH (21:12)
[2021-03-14 22:05] LABS: HCT - HEMATOCRIT 27.3 % (37.0-47.0); HGB - HEMOGLOBIN 8.6 g/dL (12.0-16.0)
[2021-03-15] MEDS: SODIUM CHLORIDE FLUSH 0.9% 10 ML SYRINGE IVP SCH ×4 (00:15→23:34)
[2021-03-15 05:18] LABS: BASOPHILS % (AUTO) 0.9 %; EOSINOPHILS # (AUTO) 0.1 10^3/uL (0.0-0.7); EOSINOPHILS % (AUTO) 2.4 %; HCT - HEMATOCRIT 27.8 % (37.0-47.0); HGB - HEMOGLOBIN 8.4 g/dL (12.0-16.0); LYMPHOCYTES # (AUTO) 1.3 10^3/uL (1.5-3.5); LYMPHOCYTES % (AUTO) 27.5 %; MEAN CORPUSCULAR HEMOGLOBIN 26.2 pg (27.0-31.0); MEAN CORPUSCULAR HGB CONC 30.2 g/dL (32.0-36.0); MEAN CORPUSCULAR VOLUME 86.6 fL (81.0-99.0); MEAN PLATELET VOLUME 10.2 fL (7.9-10.8); MONOCYTES # (AUTO) 0.6 10^3/uL (0.0-1.0); NEUTROPHILS # (AUTO) 2.7 10^3/uL (1.5-6.6); PLT - PLATELET COUNT 117 10^3/uL (130-450); RED BLOOD COUNT 3.21 10^6/uL (4.20-5.40); WHITE BLOOD COUNT 4.7 x10^3/uL (4.8-10.8)
[2021-03-15 05:25] LABS: CALCIUM 8.9 mg/dL (8.5-10.3); CREATININE 1.5 mg/dL (0.4-1.0); POTASSIUM 3.9 mmol/L (3.5-5.0)
[2021-03-15] MEDS: PANTOPRAZOLE 40 MG TABLET PO SCH (06:27)
[2021-03-15] MEDS: POTASSIUM CHLORIDE 20 MEQ TABLET PO SCH (07:56)
[2021-03-15] MEDS: carvediloL 12.5 MG TABLET PO SCH ×2 (07:57→15:53)
[2021-03-15] MEDS: ACETAMINOPHEN 325 MG TABLET PO PRN ×3 (07:57→20:13)
[2021-03-15] MEDS: FUROSEMIDE 20 MG TABLET PO SCH (09:27)
[2021-03-15] MEDS: diltiaZEM CD 120 MG CAPSULE PO SCH ×2 (09:27→20:13)
[2021-03-15] MEDS: LOSARTAN 50 MG TABLET PO SCH (09:27)
[2021-03-15] MEDS: CETIRIZINE 10 MG TABLET PO SCH (09:27)
--- NOTE | 2021-03-15 12:32 | PROVIDER PROGRESS NOTE ---
Subjective - Prog Note Date Prog Note Date: 03/15/21 - Subjective Subjective: She reports feeling well. Denies any lightheadedness or dizziness. Still had 2 bloody bowel movements this morning but feels like it may be slightly less bloody this time. She would like to go home as soon as possible. Denies abdominal pain. Current Medications - Current Medications Current Medications: Active Medications Acetaminophen (Acetaminophen 325 Mg Tablet) 650 mg PO Q4HR PRN PRN Reason: Pain 1 to 4 Last Admin: 03/15/21 07:57 Dose: 650 mg Documented by: Albuterol (Albuterol Neb 2.5 Mg/3 Ml) 2.5 mg INH RTQ4H PRN PRN Reason: Wheezing Alprazolam (Alprazolam 0.25 Mg Tablet) 0.25 mg PO QPM PRN PRN Reason: Anxiety Atorvastatin Calcium (Atorvastatin 10 Mg Tablet) 10 mg PO QPM [facility] Last Admin: 03/14/21 21:12 Dose: 10 mg Documented by: Carvedilol (Carvedilol 12.5 Mg Tablet) 25 mg PO BIDWM [facility] Last Admin: 03/15/21 07:57 Dose: 25 mg Documented by: Cetirizine HCl (Cetirizine 10 Mg Tablet) 10 mg PO DAILY [facility] Last Admin: 03/15/21 09:27 Dose: 10 mg Documented by: Diltiazem HCl (Diltiazem Cd 120 Mg Capsule) 120 mg PO BID [facility] Last Admin: 03/15/21 09:27 Dose: 120 mg Documented by: Furosemide (Furosemide 20 Mg Tablet) 40 mg PO DAILY [facility] Last Admin: 03/15/21 09:27 Dose: 40 mg Documented by: Losartan Potassium (Losartan 50 Mg Tablet) 25 mg PO DAILY [facility] Last Admin: 03/15/21 09:27 Dose: 25 mg Documented by: Ondansetron HCl (Ondansetron 4 Mg/2 Ml Vial) 4 mg IVP Q6HR PRN PRN Reason: Nausea / Vomiting Pantoprazole Sodium (Pantoprazole 40 Mg Tablet) 40 mg PO QDAC [facility] Last Admin: 03/15/21 06:27 Dose: 40 mg Documented by: Potassium Chloride (Potassium Chloride 20 Meq Tablet) 25 meq PO DAILYWM [facility] Last Admin: 03/15/21 07:56 Dose: 25 meq Documented by: Sodium Chloride (Sodium Chloride Flush 0.9% 10 Ml Syringe) 10 ml IVP PRN PRN PRN Reason: NEEDED PER PROVIDER ORDERS Sodium Chloride (Sodium Chloride Flush 0.9% 10 Ml Syringe) 10 ml IVP 0100, 0900,1700 MILANA Last Admin: 03/15/21 12:02 Dose: 10 ml Documented by: Furosemide 40 mg PO DAILY 09/24/13 Pantoprazole Sodium [Protonix] 40 mg PO DAILY 09/24/13 methIMAzole [Methimazole] 5 mg PO MOWEFR 09/24/13 Albuterol Sulfate [Proair Respiclick] 2 puffs IH Q4HR PRN 07/13/15 Diclofenac Sodium [Voltaren] 2 - 4 gm TP DAILY 07/13/15 Minoxidil [Hair Regrowth Treatment] 1 applic TP BID 07/13/15 ALPRAZolam [Alprazolam] 0.25 mg PO DAILY PM PRN 08/10/17 Cetirizine [ZyrTEC] 10 mg PO DAILY 09/11/17 Biotin 2,500 mcg PO DAILY 03/13/21 Carboxymethylcellulos/Glycerin [Refresh Optive Eye Drops] 1 - 3 drops OP TID PRN 03/13/21 Clobetasol Propionate [Temovate] 1 applic TP DAILY PRN 03/13/21 Diltiazem HCl [Diltiazem 12Hr ER] 120 mg PO BID 03/13/21 Fluticasone [Flonase] 2 sprays RODNEY DAILY 03/13/21 Losartan Potassium 25 mg PO DAILY 03/13/21 Potassium Chloride [Klor-Con 10] 25 meq PO DAILY 03/13/21 Simvastatin [Zocor] 20 mg PO HS 03/13/21 Objective - Vital Signs/Intake & Output Reviewed Vital Signs: Yes Vital Signs: Vital Signs x48h Temp Pulse Resp BP Pulse Ox 03/15/21 07:32 36.9 C 78 16 145/54 H 98 03/15/21 04:47 37 C 89 20 129/50 L 96 Intake & Output: Intake & Output 03/12/21 03/13/21 03/14/21 03/15/21 23:59 23:59 23:59 23:59 Intake Total 3056 1668 480 Output Total 750 1150 400 Balance 2306 518 80 - Objective General Appearance: positive: No acute distress, Alert Eyes Bilateral: positive: Normal inspection ENT: positive: ENT inspection nml Neck: positive: Nml inspection Respiratory: positive: No respiratory distress. negative: Wheezes, Rales Cardiovascular: positive: Regular rate & rhythm. negative: Irregularly irregular, Tachycardia Abdomen: positive: Non-tender, No distention. negative: Tenderness Skin: positive: Warm, Dry Extremities: positive: No pedal edema Neurologic/Psychiatric: negative: Disoriented to person, Disoriented to place - Lab Results Fish Bones: 03/15/21 05:06 03/15/21 05:06 Other Labs: Lab Results x24hrs 03/15/21 03/15/21 03/14/21 Range/Units 05:06 05:06 21:59 WBC 4.7 L (4.8-10.8) x10^3/uL RBC 3.21 L (4.20-5.40) 10^6/uL Hgb 8.4 L 8.6 L (12.0-16.0) g/dL Hct 27.8 L 27.3 L (37.0-47.0) % MCV 86.6 (81.0-99.0) fL MCH 26.2 L (27.0-31.0) pg MCHC 30.2 L (32.0-36.0) g/dL RDW 15.0 (12.0-15.0) % Plt Count 117 L (130-450) 10^3/uL MPV 10.2 (7.9-10.8) fL Neut # (Auto) 2.7 (1.5-6.6) 10^3/uL Lymph # (Auto) 1.3 L (1.5-3.5) 10^3/uL Mckenzie # (Auto) 0.6 (0.0-1.0) 10^3/uL Eos # (Auto) 0.1 (0.0-0.7) 10^3/uL Baso # (Auto) 0.0 (0.0-0.1) 10^3/uL Absolute Nucleated RBC 0.00 x10^3/uL Nucleated RBC % 0.0 /100WBC Sodium 135 (135-145) mmol/L Potassium 3.9 (3.5-5.0) mmol/L Chloride 104 (101-111) mmol/L Carbon Dioxide 22 (21-32) mmol/L Anion Gap 9.0 (6-13) BUN 27 H (6-20) mg/dL Creatinine 1.5 H (0.4-1.0) mg/dL Estimated GFR (MDRD) 33 L (>89) Glucose 104 H (70-100) mg/dL Calcium 8.9 (8.5-10.3) mg/dL 03/14/21 Range/Units 14:00 WBC (4.8-10.8) x10^3/uL RBC (4.20-5.40) 10^6/uL Hgb 8.8 L (12.0-16.0) g/dL Hct 28.4 L (37.0-47.0) % MCV (81.0-99.0) fL MCH (27.0-31.0) pg MCHC (32.0-36.0) g/dL RDW (12.0-15.0) % Plt Count (130-450) 10^3/uL MPV (7.9-10.8) fL Neut # (Auto) (1.5-6.6) 10^3/uL Lymph # (Auto) (1.5-3.5) 10^3/uL Mckenzie # (Auto) (0.0-1.0) 10^3/uL Eos # (Auto) (0.0-0.7) 10^3/uL Baso # (Auto) (0.0-0.1) 10^3/uL Absolute Nucleated RBC x10^3/uL Nucleated RBC % /100WBC Sodium (135-145) mmol/L Potassium (3.5-5.0) mmol/L Chloride (101-111) mmol/L Carbon Dioxide (21-32) mmol/L Anion Gap (6-13) BUN (6-20) mg/dL Creatinine (0.4-1.0) mg/dL Estimated GFR (MDRD) (>89) Glucose (70-100) mg/dL Calcium (8.5-10.3) mg/dL Assessment/Plan - Problem List (1) Lower GI bleed Impression: This is the cause of her acute blood loss anemia. Suspect this is likely secondary to the cecal polyp or diverticulosis. She still has bloody stool this morning but it appears to have decreased in volume. Her hemoglobin also appears to be stabilizing. We will observe her overnight and if her hemoglobin remains stable then we will plan for discharge. She has made it quite clear that she does not want any surgical intervention. I am hopeful the bleeding will resolve completely or at least be quite minimal before we discharge her. (2) Acute blood loss anemia Impression: Her hemoglobin is still trending down but appears to be plateauing at around 8.4-8.6. Her bleeding also appears to be subsiding. We will start her on oral iron supplementation and monitor her overnight. If her hemoglobin remained stable then we will plan for discharge tomorrow. (3) Adenomatous polyp of cecum Impression: This is the suspected cause of her GI bleed. She has made it quite clear she does not want surgical intervention. We are hoping that the bleeding will resolve on its own. (4) Atrial fibrillation Impression: She remains rate controlled on diltiazem and carvedilol which we are continuing. She is not on anticoagulation due to the bleeding. Qualifiers: Atrial fibrillation type: chronic (5) Chronic HFrEF (heart failure with reduced ejection fraction) Impression: Not in exacerbation. We are continuing her home medications including Lasix. (6) Chronic obstructive pulmonary disease (COPD) Impression: Stable and not in exacerbation. Continue albuterol as need. (7) Cor pulmonale (chronic) Impression: This is likely secondary to her heart failure and COPD. Continue home diuret ics.
[2021-03-15] MEDS: FERROUS SULFATE 325 MG TABLET PO SCH (14:09)
[2021-03-15] MEDS: ATORVASTATIN 10 MG TABLET PO SCH (20:13)
[2021-03-16] MEDS: ACETAMINOPHEN 325 MG TABLET PO PRN (00:39)
[2021-03-16 05:19] LABS: BASOPHILS # (AUTO) 0.1 10^3/uL (0.0-0.1); BASOPHILS % (AUTO) 1.2 %; EOSINOPHILS # (AUTO) 0.1 10^3/uL (0.0-0.7); HCT - HEMATOCRIT 26.2 % (37.0-47.0); HGB - HEMOGLOBIN 8.3 g/dL (12.0-16.0); LYMPHOCYTES # (AUTO) 1.2 10^3/uL (1.5-3.5); LYMPHOCYTES % (AUTO) 27.7 %; MEAN CORPUSCULAR HEMOGLOBIN 27.2 pg (27.0-31.0); MEAN CORPUSCULAR HGB CONC 31.7 g/dL (32.0-36.0); MEAN CORPUSCULAR VOLUME 85.9 fL (81.0-99.0); MEAN PLATELET VOLUME 10.5 fL (7.9-10.8); MONOCYTES # (AUTO) 0.5 10^3/uL (0.0-1.0); MONOCYTES % (AUTO) 11.1 %; NEUTROPHILS # (AUTO) 2.5 10^3/uL (1.5-6.6); NEUTROPHILS % (AUTO) 56.5 %; PLT - PLATELET COUNT 112 10^3/uL (130-450); RED BLOOD COUNT 3.05 10^6/uL (4.20-5.40); RED CELL DISTRIBUTION WIDTH 14.9 % (12.0-15.0); WHITE BLOOD COUNT 4.3 x10^3/uL (4.8-10.8)
[2021-03-16] MEDS: PANTOPRAZOLE 40 MG TABLET PO SCH (05:30)
[2021-03-16 05:31] LABS: CALCIUM 9.1 mg/dL (8.5-10.3); CREATININE 1.5 mg/dL (0.4-1.0); POTASSIUM 3.9 mmol/L (3.5-5.0)
[2021-03-16] MEDS: carvediloL 12.5 MG TABLET PO SCH (08:25)
[2021-03-16] MEDS: FERROUS SULFATE 325 MG TABLET PO SCH (08:32)
[2021-03-16] MEDS: diltiaZEM CD 120 MG CAPSULE PO SCH (08:35)
[2021-03-16] MEDS: LOSARTAN 50 MG TABLET PO SCH (08:36)
[2021-03-16] MEDS: FUROSEMIDE 20 MG TABLET PO SCH (08:37)
[2021-03-16] MEDS: CETIRIZINE 10 MG TABLET PO SCH (08:40)
[2021-03-16] MEDS: SODIUM CHLORIDE FLUSH 0.9% 10 ML SYRINGE IVP SCH (09:00)
[2021-03-16] MEDS ORDERED: POTASSIUM CHLORIDE 20 MEQ TABLET PO SCH (09:00)
[2021-03-16 10:18] LABS: HCT - HEMATOCRIT 27.8 % (37.0-47.0); HGB - HEMOGLOBIN 8.5 g/dL (12.0-16.0)
[2021-03-16 14:22] LABS: HCT - HEMATOCRIT 28.2 % (37.0-47.0); HGB - HEMOGLOBIN 8.6 g/dL (12.0-16.0)
--- NOTE | 2021-03-16 15:02 | Discharge Plan ---
Discharge Plan Problem Reviewed?: Yes Disposition: Home, Self Care Condition: Stable Prescriptions: Ferrous Sulfate [Feosol] 325 mg PO DAILYWM #30 tablet Diet: Cardiac Activity Restrictions: Activity as Tolerated Shower Restrictions: No Assistance Devices: [facility] Concerns: You were admitted for blood loss with bleeding in your stool, most likely from your cecal polyp. You did not require any blood transfusions. Your hemoglobin was monitored throughout the stay and remained stable. At discharge it was 8.6. You should follow up with your PCP in a week, consider getting your labs drawn before going to the appointment. Consider also discussing a Palliative Care referral with your PCP. Return to the ER if you notice large amounts of blood in your stool or if you feel dizzy, light-headed or pass out as you may require a blood transfusion if you have a large blood loss. Plan of Treatment: Avoid all blood thinners including aspirin. Please take the iron tablets once a day. Assessment: Pt and family understand the treatment plan. Additional Instructions or Follow Up instructions: You should follow up with your PCP in a week, consider getting your labs drawn to check your blood counts before going to the appointment. Consider also discu ssing a Palliative Care referral with your PCP. Return to the ER if you notice large amounts of blood in your stool or if you feel dizzy, light-headed or pass out as you may require a blood transfusion if you have a large blood loss. If you are bleeding but the toilet bowl is clear, this likely reflects minor bleeding. If you are passing clots or the toilet bowl water is very dark or not transparent this may reflect large blood loss. I would recommend having your daughter check the toilet bowl after each bowel movement. No Smoking: If you smoke, Please STOP! Call for help. Follow-up with: Og Mckenzie MD [Primary Care Provider] -
--- NOTE | 2021-03-16 15:14 | DISCHARGE SUMMARY ---
Discharge Summary Admit Date: 03/13/21 Discharge Date: 03/16/21 Discharging Provider: KIMBERLY Wheat Primary Care Provider: Og Mckenzie MD Code Status: Do Not Attempt Resuscitation Condition at Discharge: Stable Discharge Disposition: 01 Home, Self Care - DIAGNOSES Admission Diagnoses: From Dr. Jules's H&P 03/13: (1) Lower GI bleed (2) Adenomatous polyp of cecum (3) Atrial fibrillation (4) Chronic HFrEF (heart failure with reduced ejection fraction) (5) Chronic obstructive pulmonary disease (COPD) (6) Cor pulmonale (chronic) Discharge Diagnoses with Status of Each Condition: (1) Lower GI bleed Conclusion/Plan: Stable. She has had continued blood in her stools but this appears to be mild and likely related to her known cecal polyp. H&H was monitored and stable over the past 48 hours, trending up to 8.6 just prior to discharge. The bloody stools have mostly appeared in the mornings with none noted at night. She is tolerating a heart healthy diet. (2) Adenomatous polyp of cecum Conclusion/Plan: Stable. She has a known cecal polyp and biopsies revealed a tubular adenoma. She continued to have episodes of bloody stool though this morning only a scant amount was noted in the toilet bowl. (3) Atrial fibrillation Conclusion/Plan: Stable. She is no longer on Xarelto given the GI bleed and known cecal mass. We will continue her home carvedilol and diltiazem. Qualifiers: Atrial fibrillation type: chronic (4) Chronic HFrEF (heart failure with reduced ejection fraction) Conclusion/Plan: Stable. Her last echocardiogram revealed an ejection fraction of 45%. This is currently not in exacerbation. Her home meds were resumed. (5) Chronic obstructive pulmonary disease (COPD) Conclusion/Plan: Stable and not in exacerbation. Continue with albuterol as needed. (6) Cor pulmonale (chronic) Conclusion/Plan: Stable. This is likely secondary to her chronic heart failure and her COPD. Her last echocardiogram revealed a RVSP of 89 mmHg. Her home meds were resumed. - HPI History of Present Illness: H&P per Dr. Jules 03/13: "This is a 89-year-old female with a past medical history significant for chronic heart failure with reduced ejection fraction, atrial fibrillation, COPD, cecal polyp who presents today complaining of blood in her stool. She states that she woke up this morning and had 3-4 bloody bowel movements. She had this before nearly 2 years ago and she is aware that she has a polyp in her colon. She was transferred to centers at [facility] [place] at that time but she states they did not perform any surgical intervention for her as it was felt that she was high risk for any procedure. She has been off of all anticoagulation since then and has been doing well up until this morning. She has no associated abdominal pain. Denies nausea, vomiting, dysuria, urgency, hematuria. She continued to have bloody stool in the emergency department. In the emergency department, she is noted to be hemodynamically stable. Her hemoglobin was noted to 11.4 and her platelet count was low 126. She underwent a CT of the abdomen and pelvis which showed no obvious source of the bleeding. Given her ongoing bleeding, medicine was consulted for admission. I did discuss goals of care with the patient and she would like to be a DNR." - HOSPITAL COURSE Hospital Course: She was admitted with blood per rectum/lower GI bleed and acute blood loss anemia felt due to her known cecal polyp. A colonoscopy was not obtained as she has a known polyp and it would not change her course of treatment given she has been clear about not desiring any surgical interventions. Her hemoglobin was monitored and remained stable, trending slightly up the afternoon of discharge. She did not require any blood transfusions. Her hemoglobin stabilized and she did continue to have bleeding from stools, but it appeared to be minimal. Ferrous sulfate was started this admission and she has tolerated the pills will. She initially was on a clear liquid diet and transitioned to a heart healthy diet the night before discharge, tolerating the food well for 3 meals prior to discharge. She discharged to home with family on HD 4 with instructions to continue her home meds and iron supplements, continue a heart healthy diet, avoid aspirin and blood thinners, and to return to the ED should she note large amounts of blood in the toilet bowl or feel dizzy, light-headed or faint. All remaining problems in her problem list remained stable with no interventions required this admission. - ALLERGIES Allergies/Adverse Reactions: Allergies Allergy/AdvReac Type Severity Reaction Status Date / Time SEGUNDO Inhibitors Allergy Unknown Verified 03/13/21 07:52 amoxicillin Allergy Unknown Verified 03/13/21 07:52 codeine Allergy hyperactivi Verified 03/13/21 07:52 ty Penicillins Allergy Rash Verified 03/13/21 07:52 - MEDICATIONS Home Medications: Ambulatory Orders Medication Instructions Recorded Confirmed RX: Furosemide 40 mg PO DAILY 09/24/13 03/13/21 RX: Pantoprazole Sodium [Protonix] 40 mg PO DAILY 09/24/13 03/13/21 RX: methIMAzole [Methimazole] 5 mg PO MOWEFR 09/24/13 06/22/19 RX: Albuterol Sulfate [Proair 2 puffs IH Q4HR PRN 07/13/15 03/13/21 Respiclick] RX: Diclofenac Sodium [Voltaren] 2 - 4 gm TP DAILY 07/13/15 03/13/21 RX: Minoxidil [Hair Regrowth 1 applic TP BID 07/13/15 06/22/19 Treatment] RX: ALPRAZolam [Alprazolam] 0.25 mg PO DAILY PM PRN 08/10/17 03/13/21 RX: carvediloL [Coreg] 25 mg PO BIDWM #0 09/11/17 03/13/21 RX: Biotin 2,500 mcg PO DAILY 03/13/21 03/13/21 RX: Carboxymethylcellulos/Glycerin 1 - 3 drops OP TID PRN 03/13/21 03/13/21 [Refresh Optive Eye Drops] RX: Clobetasol Propionate 1 applic TP DAILY PRN 03/13/21 03/13/21 [Temovate] RX: Diltiazem HCl [Diltiazem 12Hr 120 mg PO BID 03/13/21 03/13/21 ER] RX: Fluticasone [Flonase] 2 sprays RODNEY DAILY 03/13/21 03/13/21 RX: Losartan Potassium 25 mg PO DAILY 03/13/21 03/13/21 RX: Potassium Chloride [Klor-Con 25 meq PO DAILY 03/13/21 03/13/21 10] RX: Simvastatin [Zocor] 20 mg PO HS 03/13/21 03/13/21 RX: Cetirizine [ZyrTEC] 10 mg PO DAILY tablet 03/16/21 RX: Ferrous Sulfate 325 mg PO DAILY #30 tab 03/16/21 RX: Ferrous Sulfate [Feosol] 325 mg PO DAILYWM #30 tablet 03/16/21 - PHYSICAL EXAM AT DISCHARGE General Appearance: positive: Alert, Other (Initially anxious this morning but later in the day felt well with no distress, ready to return home. ) Eyes Bilateral: positive: PERRL, Other (Clear sclera. Right lid lag.) ENT: positive: ENT inspection nml, No signs of dehydration Neck: positive: Nml inspection Respiratory: positive: Chest non-tender, No respiratory distress, Breath sounds nml Cardiovascular: positive: No murmur, Irregularly irregular Peripheral Pulses: positive: 2+ Abdomen: positive: Non-tender, Nml bowel sounds, No distention Rectal: positive: Bloody stool (small amounts) Skin: positive: Color nml Extremities: positive: Non-tender Neurologic/Psychiatric: positive: Oriented x3 Physical Exam Other/Comments: Vital Signs - 24 hr 03/15/21 03/15/21 03/15/21 15:25 20:12 23:39 Temperature 37.1 C 36.6 C 36.5 C Heart Rate [ 65 75 77 Brachial] Respiratory 18 19 20 Rate Blood Pressure 133/50 H 120/53 L 121/49 L [Right Brachial artery] O2 Saturation 100 100 98 03/16/21 03/16/21 03/16/21 05:31 08:48 09:55 Temperature 36.8 C 36.3 C L Heart Rate [ 65 76 69 Brachial] Respiratory 18 16 15 Rate Blood Pressure 121/53 L 125/45 L 114/36 L [Right Brachial artery] O2 Saturation 100 99 99 03/16/21 03/16/21 03/16/21 10:11 12:36 15:07 Temperature 37.0 C 36.6 C Heart Rate [ 71 69 60 Brachial] Respiratory 15 14 16 Rate Blood Pressure 131/50 H 126/67 132/57 H [Right Brachial artery] O2 Saturation 99 99 98 Oxygen O2 Source Room air - LABS Result Diagrams: 03/16/21 14:00 03/16/21 04:50 Other Lab Results: Laboratory Results 03/16/21 14:00: Hgb 8.6 L, Hct 28.2 L 03/16/21 10:11: Hgb 8.5 L, Hct 27.8 L 03/16/21 04:50: Sodium 137, Potassium 3.9, Chloride 105, Carbon Dioxide 22, Anion Gap 10.0, BUN 31 H, Creatinine 1.5 H, Estimated GFR (MDRD) 33 L, Glucose 96, Calcium 9.1 03/16/21 04:50: WBC 4.3 L, RBC 3.05 L, Hgb 8.3 L, Hct 26.2 L, MCV 85.9, MCH 27.2, MCHC 31.7 L, RDW 14.9, Plt Count 112 L, MPV 10.5, Neut # (Auto) 2.5, Lymph # (Auto) 1.2 L, [place] # (Auto) 0.5, Eos # (Auto) 0.1, Baso # (Auto) 0.1, Absolute Nucleated RBC 0.00, Nucleated RBC % 0.0 03/15/21 05:06: Sodium 135, Potassium 3.9, Chloride 104, Carbon Dioxide 22, Anion Gap 9.0, BUN 27 H, Creatinine 1.5 H, Estimated GFR (MDRD) 33 L, Glucose 104 H, Calcium 8.9 03/15/21 05:06: WBC 4.7 L, RBC 3.21 L, Hgb 8.4 L, Hct 27.8 L, MCV 86.6, MCH 26.2 L, MCHC 30.2 L, RDW 15.0, Plt Count 117 L, MPV 10.2, Neut # (Auto) 2.7, Lymph # (Auto) 1.3 L, [place] # (Auto) 0.6, Eos # (Auto) 0.1, Baso # (Auto) 0.0, Absolute Nucleated RBC 0.00, Nucleated RBC % 0.0 03/14/21 21:59: Hgb 8.6 L, Hct 27.3 L - SEPSIS Current Stage of Sepsis: Ruled out - FOLLOW UP Follow Up: PCP in 1-2 weeks, consider a Palliative Care consult - TIME SPENT Time Spent in Discharge (Minutes): 32
[2021-03-16 15:43] VITALS: BP 139/77
== END 2021-03-16 15:50 | disposition home or self-care (01) | DRG 393 ==
LOC: ED 07:40 → MS2 10:25 → OBSVTOIN 03-14 10:48
PROVIDERS: ADMIT Internal Medicine; ATTEND Registered Nurse
DX: K92.2 Gastrointestinal hemorrhage, unspecified (principal); D12.0 Benign neoplasm of cecum; K57.31 Diverticulosis of large intestine without perforation or abscess with bleeding; I48.91 Unspecified atrial fibrillation; I50.22 Chronic systolic (congestive) heart failure; D62 Acute posthemorrhagic anemia; I11.0 Hypertensive heart disease with heart failure; J44.9 Chronic obstructive pulmonary disease, unspecified; I27.81 Cor pulmonale (chronic); Z20.822 Contact with and (suspected) exposure to COVID-19; Z66 Do not resuscitate; E03.9 Hypothyroidism, unspecified; K21.9 Gastro-esophageal reflux disease without esophagitis; I25.10 Atherosclerotic heart disease of native coronary artery without angina pectoris; I25.2 Old myocardial infarction; E78.00 Pure hypercholesterolemia, unspecified; E11.9 Type 2 diabetes mellitus without complications
CPT/HCPCS: 36415; 74177; 80048; 80053; 81001; 83690; 85014; 85018; 85025; 85610; 85730; 86850; 86900; 86901; 87631; 99284; 99285; A9270; G0378; J7120; Q9967; 0202U; 81003; 87086